=== PATIENT | male | born 1965 | race African-American/Black ===

== ENCOUNTER 2018-08-17 17:05 | Observation (INO) ==
[2018-08-17] MEDS ORDERED: NS 1,000 ML IV ONE ×2 (18:10→18:53)
[2018-08-17 18:19] LABS: BASO# 0.02 X1000 (0.0-0.2); BASO% 0.3 % (0.0-0.8); EOS# 0.03 X1000 (0.0-0.7); EOS% 0.5 % (0.0-10.0); HEMATOCRIT 45.2 % (42.0-52.0); HEMOGLOBIN 16.2 g/dL (14.0-18.0); IMM GRAN# 0.01 X1000 (0.0-0.04); IMM GRAN% 0.2 % (0.0-0.5); LYMPH# 2.05 X1000 (1.2-3.4); LYMPH% 34.2 % (20.5-51.1); MCH 30.3 PG (27-31); MCHC 35.8 g/dL (33-37); MCV 84.6 FL (81-99); MONO# 0.35 X1000 (0.11-0.59); MONO% 5.8 % (1.7-9.3); MPV 10.1 FL (7.4-10.4); NEUT# 3.53 X1000 (1.4-6.5); PLT 349 X1000 (130-400); RBC 5.34 XMIL (4.7-6.1); RDW 12.7 % (11.5-14.5); WBC 5.99 X1000 (4.8-10.8)
[2018-08-17 18:37] LABS: AMYLASE 59 U/L (20-200)
[2018-08-17 18:48] LABS: CALCIUM 9.6 mg/dL (8.8-10.2); CREATININE 1.3 mg/dL (0.7-1.2); TOTAL BILIRUBIN 0.2 mg/dL (0.20-1.00); TOTAL PROTEIN 7.8 g/dL (6.3-8.3)
[2018-08-17 18:51] LABS: ACETONE SERUM NEGATIVE (NEGATIVE)
[2018-08-17] MEDS ORDERED: HUMULIN R IV ONE (18:53)
[2018-08-17] MEDS ORDERED: D50W SYRINGE IV ONE (18:57)
[2018-08-17] MEDS ORDERED: HUMULIN R (PARKWAY) ONE (19:09)
[2018-08-17] MEDS ORDERED: HUMULIN R (PARKWAY) 100 UNITS in NS 100 ML IV SCH (19:15)
[2018-08-17 19:16] LABS: BILIRUBIN URINE NEGATIVE (NEGATIVE); BLOOD URINE NEGATIVE (NEGATIVE); CLARITY CLEAR (CLEAR); COLOR YELLOW; KETONE URINE NEGATIVE (NEGATIVE); LEUKOCYTES URINE NEGATIVE (NEGATIVE); NITRITE URINE NEGATIVE (NEGATIVE); PH URINE 6.5; PROTEIN URINE NEGATIVE (NEGATIVE); UROBILINOGEN URINE NORMAL
[2018-08-17] MEDS ORDERED: ZOFRAN IV ONE (19:16)
[2018-08-17] MEDS: NS 1,000 ML IV ONE ×2 (19:17→20:22)
[2018-08-17] MEDS ORDERED: TYLENOL PO PRN (19:24)
[2018-08-17] MEDS ORDERED: ZOFRAN IV PRN (19:24)
--- NOTE | 2018-08-17 19:24 | PROVIDER DOCUMENTATION ---
This chart was entered by Pati Muñoz Scribe, acting as scribe for Omega Dumont DO. HPI-General Adult - General Chief Complaint: Nausea/Vomiting Stated Complaint: WEAK, EXTREMITY PAIN Time Seen by Provider: 08/17/18 17:46 Source: patient Allergies/Adverse Reactions: Patient Allergies Allergy/AdvReac Type Severity Reaction Status Date / Time No Known Allergies Allergy Verified 07/07/18 18:18 Home Medications: Home Medication List Medication Instructions Recorded Confirmed Last Taken Type Aspirin 81 mg PO DAILY 07/07/18 07/07/18 Unknown History Omeprazole 40 mg PO DAILY 07/07/18 07/07/18 Unknown History Hydroxyurea 500 mg PO DAILY 07/08/18 07/08/18 Unknown History Apixaban [Eliquis] 5 mg PO BID #60 tab 07/09/18 Unknown Rx Insulin Glargine,Hum.rec.anlog 30 units SQ DAILY #1 insuln.pen 07/09/18 Unknown Rx [Lantus Solostar] Insulin Lispro [Humalog Kwikpen] 5 unit SQ TID #1 insuln.pen 07/09/18 Unknown Rx Losartan [Cozaar] 25 mg PO DAILY #30 tab 07/09/18 Unknown Rx Oxycodone/APAP 10 mg/325 mg 1 - 2 mg PO Q4H PRN PRN #20 tab 07/09/18 Unknown Rx [Percocet-10] Tizanidine [Zanaflex] 4 mg PO Q8HR PRN #25 tab 07/09/18 Unknown Rx - History of Present Illness -Gen Adult Nature of Presenting Problems: Pt is 53/M presenting to ED w/ c/o general fatigues aches and pains as well as L shoulder pain. Pt sts that he has been nauseated and jsut not feeling well. Pt is sarcoma patient, is IDDM who has not been checking his glucose levels. Pt sts that h is levels are usually in the 200s. Location of Pain/Injury: reports: generalized Pain Radiation: reports: shoulder(s) (L shoulder pain) Quality of Pain: reports: aching Severity: reports: mild Onset/Duration: reports: 4 days ago Timing: reports: still present Context/Activities at Onset: reports: none Modifying Factors: improves with: nothing Associated Symptoms: reports: malaise, muscle aches, nausea. denies: back/neck pain, chest pain, cough, vomiting Similar Symptoms Previously?: No Recently seen or treated by another doctor?: No Review of Systems - Adult - REVIEW OF SYSTEMS - ADULT Constitutional: reports: no symptoms reported. denies: chills, fever Eyes: reports: no symptoms reported Ears, Nose, Mouth & Throat: reports: no symptoms reported. denies: ear pain, throat pain Cardiovascular: reports: no symptoms reported Respiratory: reports: no symptoms reported. denies: cough, shortness of breath, wheezing Gastrointestinal: reports: nausea. denies: abdominal pain, vomiting Genitourinary: reports: no symptoms reported Musculoskeletal: reports: no symptoms reported Integumentary: reports: no symptoms reported Neurological: reports: no symptoms reported. denies: dizziness/vertigo, h eadache/migraines Psychiatric: reports: no symptoms reported Endocrine: reports: no symptoms reported Hematologic/Lymphatic: reports: no symptoms reported Allergic/Immunologic: reports: no symptoms reported All Other Systems: Reviewed and Negative Past History - Adult - PAST MEDICAL HISTORY-ADULT Review of Records: reports: Old Records Reviewed, Nursing Assessment Review, Medications Reviewed, Social history reviewed & non-contributory. Major Childhood Illnesses: reports: history unknown Cardiovascular: reports: CAD Respiratory: reports: denies history Gastrointestinal: reports: denies history Obstetrical/Gynecological: reports: denies history Genitourinary: reports: denies history Musculoskeletal: reports: denies history Neurological: reports: TIA (apr 2018) Endocrine/Immune: reports: Diabetes Other Conditions: reports: denies history - IMMUNIZATION STATUS Childhood Immunizations: See Nurse Assessment Flu Vaccine: See Nurse Assessment - FAMILY HISTORY Family History: reviewed, not pertinent - SOCIAL HISTORY Smoking: cigarettes, less than 1 pack/day Provider spent 3-5 mins advising pt. on dangers of tobacco.: Discussed manners to quit use, and f/u contacts for add'l counseling. Substance Use: none/never Alcohol Use Frequency: occasionally Physical Exam-General - PHYSICAL EXAM-ADULT Initial Vital Signs Reviewed: Yes - CONSTITUTIONAL General Appearance: mild distress - EYES Eyes: PERRL/EOMI, other (GRD 2 DM RETINOPATHY) - HEAD, EARS, NOSE, MOUTH & THROAT HENMT: moist mucous membranes, dental decay, other (L TM injected) - NECK Neck: non-tender, full range of motion, supple - RESPIRATORY Respiratory: other (decreased breath sounds in L lower lobe) - CARDIOVASCULAR Cardiovascular: regular rate, rhythm, other (pretibal edema) - GASTROINTESTINAL (ABDOMEN) Abdominal Exam: abnormal bowel sounds (hypoactive bowel sounds), tenderness (RLQ tenderness) - LYMPHATIC Lymphatic: no adenopathy - MUSCULOSKELETAL Back Exam: normal inspection, no CVA tenderness, no vertebral tenderness Extremity: normal range of motion, normal gait, other (Diabetic neuropathy) DTR: knee (R): 2+, knee (L): 2+ - SKIN Integumentary: normal color, warm/dry - NEUROLOGIC Neurologic: grossly normal - PSYCHIATRIC Psych/Mental Status: normal mood/affect, normal thought content, normal thought process, oriented x 3 Progress - PLAN OF CARE/RESULTS Progress/Plan/Lab Results: Vital Signs - 8 hr 08/17/18 17:29 Temperature 97.9 F Pulse Rate 92 H Respiratory Rate 20 Blood Pressure 106/78 O2 Sat by Pulse Oximetry 100 Laboratory Results - last 24 hr 08/17/18 08/17/18 08/17/18 17:42 18:05 18:05 WBC 5.99 RBC 5.34 Hgb 16.2 Hct 45.2 MCV 84.6 MCH 30.3 MCHC 35.8 RDW Std Deviation 12.7 Plt Count 349 MPV 10.1 Immature Gran % (Auto) 0.2 Neut % (Auto) 59.0 Lymph % (Auto) 34.2 [place] % (Auto) 5.8 Eos % (Auto) 0.5 Baso % (Auto) 0.3 Immature Gran # (Auto) 0.01 Neut # (Auto) 3.53 Lymph # (Auto) 2.05 [place] # (Auto) 0.35 Eos # (Auto) 0.03 Baso # (Auto) 0.02 Sodium Potassium Chloride Carbon Dioxide Anion Gap BUN Creatinine Estimated GFR/1.73 m2 BUN/Creatinine Ratio Glucose POC Glucose 500 H D Calculated Osmolality Calcium Total Bilirubin AST ALT Alkaline Phosphatase Total Protein Albumin Globulin Albumin/Globulin Ratio Amylase 59 Lipase Acetone Level NEGATIVE 08/17/18 18:05 WBC RBC Hgb Hct MCV MCH MCHC RDW Std Deviation Plt Count MPV Immature Gran % (Auto) Neut % (Auto) Lymph % (Auto) [place] % (Auto) Eos % (Auto) Baso % (Auto) Immature Gran # (Auto) Neut # (Auto) Lymph # (Auto) [place] # (Auto) Eos # (Auto) Baso # (Auto) Sodium 122 L Potassium 5.0 Chloride 83 L Carbon Dioxide 22 L Anion Gap 16 BUN 26 H Creatinine 1.3 H Estimated GFR/1.73 m2 58 BUN/Creatinine Ratio 20 Glucose 926 H* POC Glucose Calculated Osmolality 297 Calcium 9.6 Total Bilirubin 0.20 AST 10 ALT 13 Alkaline Phosphatase 205 H Total Protein 7.8 Albumin 4.0 Globulin 4.0 Albumin/Globulin Ratio 1.0 Amylase Lipase 37 Acetone Level Orders Category Date Time Status FSBS [Finger Stick Blood Sugar (ED)] DIRECTED Care 08/17/18 17:50 Active ACETONE SERUM [CHEM] Stat Lab 08/17/18 18:05 Completed AMYLASE [CHEM] Stat Lab 08/17/18 18:05 Completed CBC WITH DIFF [HEME] Stat Lab 08/17/18 18:05 Completed COMPREHENSIVE METABOLIC PANEL [CHEM] Stat Lab 08/17/18 18:05 Completed LIPASE [CHEM] Stat Lab 08/17/18 18:[address] W/POSS RFLX CULT [URINALYSIS] Stat Lab 08/17/18 17:48 Uncollected 0.9% Sodium Chloride Inj [Ns] 1,000 ml Med 08/17/18 18:10 Active IV 999 mls/hr Result Diagrams: 08/17/18 18:05 08/17/18 18:05 - EKG 1 Time of EKG reading by physician:: 17:45 EKG Read and Signed by:: Omega Dumont EKG Interpretation (*Must complete 3 of following elements*): Abnormal (Normal sinus rhythm, Possible Left atrial enlargement, Early repolarization, Borderline ECG) Rate: 80 Rhythm: Sinus [place]: normal QRS: normal CA Interval: normal - CONSULTS/PCP/HOSPITALIST Notification #1 *Consult/PCP/Hospitalist*: DR MERCEDES Time Discussed: 19:10 (ADMISSION) Departure - Departure Date of Disposition Decision: 08/17/18 Time of Disposition Decision: 19:19 DIAGNOSIS: Hyperglycemia without ketosis, Dehydration, moderate, Secondary diabetes with hyperglycemia hyperosmolar non-ketotic coma Disposition: ADMITTED INPATIENT 09 Certified Medical Emergency: Emergent Condition: Stable Referrals and Follow-Ups: None,PCP [Primary Care Provider] - - Critical Care Note This patient required my direct & personal management of CC.: Yes Total Time (mins): 60 (HYPEROSSMOLAR HYPERGLYCEMIC NONKETTOTIC SYNDROME ) Critical Care Statement: This patient required my direct personal management to treat or rule out processes, the absence of which, could potentiallly result in sudden, clinically significant life or limb threatening deterioration. Attestation - Physician/ ROBERTO Attestation Patient care was provided by Advanced Practice Provider:: No The physician spent face to face time with patient:: Yes Advanced Practice Provider documentation review:: Supervising physician onsite and consulted in the evaluation and care of this patient. The physician did have a face to face encounter with the patient. This chart was documented by the indicated scribe, (Pati Muñoz Scribe) and accurately reflects the services I performed and decisions made by me, Omega Dumont DO, as attested by the provider's signature.
[2018-08-17 19:29] LABS: URINE SOURCE CLEAN CATCH
[2018-08-17 19:30] LABS: URINE BACTERIA NEGATIVE /HFP; URINE CAST NONE SEEN /LPF; URINE CRYSTAL NONE SEEN /HPF; URINE EPITHELIAL CELLS <10 /HPF (<10); URINE RBC <10 /HPF (<10); URINE WBC <10 /HPF (<10); URINE YEAST NONE SEEN /HPF
--- NOTE | 2018-08-17 20:36 | HISTORY AND PHYSICAL ---
CHIEF COMPLAINT: Malaise, I think an elevated blood sugar. HISTORY OF PRESENT ILLNESS: This is a 53-year-old male with history of sarcoma and CAD and diabetes, insulin dependent. He has been taking his regular insulin per him. He takes 20 but then also 25 units of Levemir daily. He is on Humalog 5 mg with meals. These are medicines we started him on, although when I saw him when we discharged him in July, he was on Lantus 30, and he presented at that time with HONK (hyperosmolar nonketotic) diabetes with hyperglycemia, which is essentially his presentation this time. His blood sugars are above 900. He said he has not been feeling well for a week. He has not been eating. He has not been drinking very well liquids. He has not had an appetite. No fevers, no chills. No throwing up. No diarrhea. No dysuria, although he has had polyuria. His sugars have not been very well controlled, but in any case, he was admitted. He was found to be profoundly hyperglycemic as he was last time with a blood sugar of 926. When he was here last time it was as high as 1231 so he was admitted for recurrent HONK, no evidence of DKA. He is awake, alert. PAST MEDICAL HISTORY: 1. 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 He still has sutures in there that have still not been removed. 2. He has CAD. 3. Type 2 diabetes. 4. TIA, CVA. 5. 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 PAST SURGICAL HISTORY: Just the recent sarcoma removal of his left leg. FAMILY HISTORY: Reviewed and noncontributory. SOCIAL HISTORY: Know tobacco. I think he says he does smoke about a pack every 2 days. No alcohol. No drugs. ALLERGIES: No known drug allergies. MEDICATION LIST: Being compiled. Aspirin, hydroxyurea, Cozaar, Eliquis, Humalog and Lantus 30. REVIEW OF SYSTEMS: Again negative times a 10-point review of systems. PHYSICAL EXAMINATION: VITAL SIGNS: Blood pressure is 106/78, heart rate of 92, respiratory rate of 20, temperature 97.9 degrees, 100% on room air. GENERAL: A well-developed male in no acute distress. HEAD EXAM: Normocephalic, atraumatic. EYE EXAM: Pupils equal, round, reactive to light. Extraocular movements are intact. EAR, NOSE AND THROAT EXAM: He had moist mucous membranes. NECK EXAM: Supple. CARDIOVASCULAR EXAM: Tachycardic and hyperdynamic. PULMONARY: Bilateral breath sounds clear to auscultation. GASTROINTESTINAL: Soft, nontender, nondistended. Bowel sounds are positive. NEUROLOGICAL: Nonfocal. No pronator drift. No facial asymmetry. MUSCULOSKELETAL EXAM: 4 to 5 in all 4 extremities. SKIN EXAM: On his left thigh, he has a healed incision. There is kind of a nodular area at the base of the incision with 2 to 3 nonabsorbable sutures. No purulence. No erythema. No jose j tenderness, but it is unclear why the sutures have not been removed, although I am suspicious that it is mostly related to I am not sure if he has been compliant with it, but we will follow. PROBLEM LIST: 1. Hyperosmolar nonketotic (HONK). He has relative hyponatremia and some renal insufficiency. We put him on insulin drip, and we will continue to control his blood sugars. Continue IV fluids and follow closely. 2. Hyponatremia, acute kidney injury likely related to his profound uncontrolled diabetes. 3. History of sarcoma. We will discuss with his surgeon tomorrow at some point to find out if we can remove these sutures. I am going to do some imaging just to make sure there is not a deep infection, although on superficial analysis, I do not appreciate any of that. 4. Thrombocytosis. We will continue his regular medications once there are resolved. DISPOSITION: Pending his clinical status, we will continue to follow closely. 32-minute H and P time for critical care for HONK requiring IV insulin. cc: Ishmael De Guzman MD
[2018-08-17] MEDS ORDERED: SODIUM CHLORIDE 0.9% INJ SCH (20:59)
[2018-08-17] MEDS ORDERED: HUMULIN R (PARKWAY) SUBQ SCH (21:00)
[2018-08-17 21:18] LABS: UR AMPHETAMINES QUAL NONE DETECTED (NONE DETECT); UR BARBITUATES QUAL NONE DETECTED (NONE DETECT); UR BENZODIAZEPIN QUAL NONE DETECTED (NONE DETECT); UR CANNABINOIDS QUAL NONE DETECTED (NONE DETECT); UR COCAINE QUAL PRESUMPTIVE POSITIVE (NONE DETECT); UR METHADONE QUAL NONE DETECTED (NONE DETECT); UR METHAMPHETAMINE QUAL NONE DETECTED (NONE DETECT); UR OPIATES QUAL PRESUMPTIVE POSITIVE (NONE DETECT); UR OXYCODONE QUAL NONE DETECTED (NONE DETECT); UR PCP QUAL NONE DETECTED (NONE DETECT); UR PROPOXYPHENE QUAL NONE DETECTED (NONE DETECT); UR TCA QUAL NONE DETECTED (NONE DETECT)
[2018-08-17] MEDS: MORPHINE IV PRN (22:04)
[2018-08-17] MEDS: PROTONIX IV SCH (22:04)
[2018-08-17] MEDS: NS 1,000 ML IV SCH (22:04)
[2018-08-18] MEDS ORDERED: BASAGLAR SUBQ ONE (00:07)
[2018-08-18] MEDS ORDERED: HUMULIN R (PARKWAY) SUBQ ONE (01:00)
[2018-08-18] MEDS: MORPHINE IV PRN ×2 (02:23→08:44)
[2018-08-18] MEDS ORDERED: HUMULIN R (PARKWAY) SUBQ SCH (05:00)
[2018-08-18] MEDS: NS 1,000 ML IV SCH ×3 (05:55→22:38)
[2018-08-18] MEDS: HUMULIN R (PARKWAY) SUBQ SCH ×2 (05:59→08:54)
[2018-08-18 07:45] LABS: AGAP 9; BUN 14 mg/dL (8-22); CALCIUM 8.1 mg/dL (8.8-10.2); CHLORIDE 102 mmol/L (98-107); COSMO 270; CREATININE 0.8 mg/dL (0.7-1.2); ESTIMATED GFR > 60; GLUCOSE 121 mg/dL (70-104); POTASSIUM 3.6 mmol/L (3.5-5.1); SODIUM 134 mmol/L (136-145); TCO2 23 mmol/L (25-35)
[2018-08-18 07:48] LABS: BASO# 0.02 X1000 (0.0-0.2); BASO% 0.3 % (0.0-0.8); EOS# 0.12 X1000 (0.0-0.7); EOS% 1.6 % (0.0-10.0); HEMATOCRIT 37.6 % (42.0-52.0); HEMOGLOBIN 13.1 g/dL (14.0-18.0); IMM GRAN# 0.02 X1000 (0.0-0.04); IMM GRAN% 0.3 % (0.0-0.5); LYMPH# 4.41 X1000 (1.2-3.4); LYMPH% 57.6 % (20.5-51.1); MCH 29.9 PG (27-31); MCHC 34.8 g/dL (33-37); MCV 85.8 FL (81-99); MONO# 0.41 X1000 (0.11-0.59); MONO% 5.4 % (1.7-9.3); NEUT# 2.67 X1000 (1.4-6.5); NEUT% 34.8 % (42.2-75.2); PLT 303 X1000 (130-400); RBC 4.38 XMIL (4.7-6.1); RDW 12.5 % (11.5-14.5); WBC 7.65 X1000 (4.8-10.8)
[2018-08-18 08:41] LABS: HEMOGLOBIN A1C 5.2 % (4.8-6.0)
[2018-08-18] MEDS ORDERED: LOVENOX SUBQ SCH (09:00)
[2018-08-18] MEDS ORDERED: NS 500 ML IV ONE (10:16)
[2018-08-18] MEDS ORDERED: INSULIN PEN NEEDLES MISC PRN (10:22)
--- NOTE | 2018-08-18 10:49 | PROGRESS NOTE ---
DATE: 08/18/2018 SUBJECTIVE: He has no complaints. He is hungry, he wants to go ahead and eat. No other major issues overnight. He has not had any major issues. OBJECTIVE: Vital Signs: Blood pressure is 191/60, heart rate 62, respiratory 16, temperature 98.3 degrees. Blood pressure has been a little bit on the low side. Cardiovascular: Regular rate and rhythm. Pulmonary: Bilateral breath sounds clear to auscultation. GI: Soft, nontender, nondistended. Bowel sounds are positive. LABORATORY DATA: Really unremarkable. His sugars have stabilized. Generally speaking, they are below 200. His 1 was 163. He is off the insulin drip. UDS though does show positivity for cocaine, I need to talk to him about that. ASSESSMENT: 1. Hyperosmolar nonketotic coma or non-coma, but type 2 diabetes with severe hyperglycemia. That is improved. We will resume his regular medications. Reports that he is on Lantus 30. I think he got Lantus 20 last night, so we will resume Lantus 20 daily and see how he does. I will cover him with NPH this evening just to get him back on his regular schedule. 2. Relative hypotension. We will monitor. Continue hydration and follow. He is a little bit anemic. 3. Thrombocytosis, appears to be stable. We are trying to get his medications resolved. 4. Cocaine positivity. I am not sure if that is a compounding issue with his multiple other issues. We have not seen that previously. 5. History of sarcoma. We are going to remove sutures and monitor. Get Wound Care to follow. DISPOSITION: I think we are going to transfer him to the floor if he is stable, likely home tomorrow. cc: Ishmael De Guzman MD
[2018-08-18] MEDS: HUMALOG (PARKWAY) SUBQ SCH ×3 (13:32→21:44)
[2018-08-18] MEDS: NORCO-7.5 PO PRN ×2 (14:01→20:38)
--- NOTE | 2018-08-18 16:23 | EKG Report ---
Test Performed on : 08/17/2018 5:45:40 PM Test Reason : ER Blood Pressure : / mmHG Vent. Rate : 080 BPM Atrial Rate : 080 BPM P-R Int : 128 ms QRS Dur : 084 ms QT Int : 362 ms P-R-T Axes : 072 021 047 degrees QTc Int : 417 ms Normal sinus rhythm. Possible Left atrial enlargement Early repolarization Borderline ECG When compared with ECG of 08-JUL-2018 19:24, No significant change was found Unconfirmed Result
[2018-08-18] MEDS: ELIQUIS PO SCH (20:38)
[2018-08-18] MEDS: PROTONIX IV SCH (21:43)
[2018-08-19] MEDS ORDERED: MORPHINE IV PRN (06:24)
[2018-08-19] MEDS: NS 1,000 ML IV SCH (06:33)
[2018-08-19] MEDS: HUMALOG (PARKWAY) SUBQ SCH ×3 (06:39→17:20)
[2018-08-19 07:56] LABS: BASO# 0.01 X1000 (0.0-0.2); BASO% 0.1 % (0.0-0.8); EOS# 0.08 X1000 (0.0-0.7); EOS% 1.1 % (0.0-10.0); HEMATOCRIT 37.1 % (42.0-52.0); HEMOGLOBIN 12.7 g/dL (14.0-18.0); IMM GRAN# 0.02 X1000 (0.0-0.04); IMM GRAN% 0.3 % (0.0-0.5); LYMPH# 3.51 X1000 (1.2-3.4); LYMPH% 47.5 % (20.5-51.1); MCH 29.8 PG (27-31); MCHC 34.2 g/dL (33-37); MCV 87.1 FL (81-99); MONO# 0.38 X1000 (0.11-0.59); MONO% 5.1 % (1.7-9.3); NEUT# 3.39 X1000 (1.4-6.5); NEUT% 45.9 % (42.2-75.2); PLT 272 X1000 (130-400); RBC 4.26 XMIL (4.7-6.1); RDW 12.5 % (11.5-14.5); WBC 7.39 X1000 (4.8-10.8)
[2018-08-19 08:27] LABS: BUN 10 mg/dL (8-22); CALCIUM 7.8 mg/dL (8.8-10.2); CREATININE 0.8 mg/dL (0.7-1.2); ESTIMATED GFR > 60; GLUCOSE 260 mg/dL (70-104); TCO2 20 mmol/L (25-35)
[2018-08-19 08:32] LABS: HEMOGLOBIN A1C 14.1 % (4.8-6.0)
[2018-08-19] MEDS: ELIQUIS PO SCH (08:54)
[2018-08-19] MEDS ORDERED: BASAGLAR SUBQ SCH (09:00)
[2018-08-19 09:25] LABS: AGAP 9; CHLORIDE 104 mmol/L (98-107); COSMO 273; POTASSIUM 4.2 mmol/L (3.5-5.1); SODIUM 132 mmol/L (136-145)
[2018-08-19] MEDS ORDERED: PERCOCET-10 PO PRN (14:51)
[2018-08-19] MEDS ORDERED: ZANAFLEX PO PRN (14:51)
[2018-08-19] MEDS ORDERED: BASAGLAR SUBQ ONE (14:52)
[2018-08-19 16:30] VITALS: BP 171/90
[2018-08-19] MEDS ORDERED: HUMALOG (PARKWAY) SUBQ SCH (17:00)
--- NOTE | 2018-08-19 18:17 | Diag Imaging Result Doc PS360 ---
EXAM: CHEST-PORTABLE 08/19/2018 HISTORY: shoulder pain TECHNIQUE: AP portable at 0551 COMMENT: There is no evidence of acute cardiac or pulmonary disease. Compared to 04/28/2011 there has been no significant change. IMPRESSION: No acute disease. Electronically signed by Pranay White 08/19/2018 6:14 PM
[2018-08-19] MEDS ORDERED: ELIQUIS PO SCH (21:00)
--- NOTE | 2018-08-19 21:19 | DISCHARGE SUMMARY ---
ADMISSION DATE: 08/17/2018 DISCHARGE DATE: 08/19/2018 DISCHARGE DIAGNOSES: 1. Hyperglycemic osmolar nonketotic coma. 2. Hyponatremia. 3. History of sarcoma. 4. Thrombocytosis. HISTORY AND HOSPITAL COURSE: Briefly, this is a 53-year-old male with history of multiple issues, sarcoma, CAD, type 2 diabetes, TIA, thrombocytosis, who came in with a blood sugar above 900. He was placed on IV fluids, IV insulin. By the following day, he was off the insulin drip and stable. Now urine drug screen on admission showed cocaine positivity, which he adamantly denies, he says he used it 30 years ago. In any case, all his rest of his workup is negative. His A1c though is 14.1, so I speculate he is not very compliant with his insulin despite statements otherwise. In any case, when he put back on his insulin, he improved. His sugars still have been in the 200 sometimes 300 range. When he was on the full dose, his sugars were in the 300 range. DISCHARGE MEDICATIONS: Aspirin 81 daily, Hydrea 500 daily, omeprazole 40 daily, Zanaflex 4 q.8, Cozaar 25 daily, Eliquis 5 b.i.d., Quick Pen 5 t.i.d., glargine 30 units daily, Percocet 1 to 2 q.4. I would say I am going to bump up his Lantus to 35 daily, just to give him a little bit more room for improvement. DISCHARGE CONDITION: Stable. We will continue to follow. Recommend close followup with his PCP who is Dr. Holman. TIME SPENT: 32 minute discharge. cc: Ishmael De Guzman MD
[2018-08-20] MEDS ORDERED: PRILOSEC PO SCH (07:00)
[2018-08-20] MEDS ORDERED: ASPIRIN PO SCH (09:00)
[2018-08-20] MEDS ORDERED: HYDREA PO SCH (09:00)
[2018-08-20] MEDS ORDERED: COZAAR PO SCH (09:00)
[2018-08-20] MEDS ORDERED: BASAGLAR SUBQ SCH (09:00)
== END 2018-08-19 18:25 | disposition home or self-care (01) ==
LOC: P.ED 17:05 → INTOOBSV 17:06 → P.ICU 17:06 → P.MEDSURG 08-18 13:48
PROVIDERS: ATTEND Internal Medicine
CPT/HCPCS: 71010; 71045; 80048; 80053; 80104; 80301; 80305; 81001; 82009; 82150; 82948; 83036; 83690; 85025; 93005; 96361; 96374; 99285; 99291; A9270; C9113; G0431; G0434; G0477; J1650; J1815; J2270; J2405; J7030; J7040; S0164; XXXXX

== ENCOUNTER 2018-09-19 04:41 | Observation (INO) ==
[2018-09-19] MEDS ORDERED: ZOFRAN IV ONE (06:05)
[2018-09-19] MEDS ORDERED: MORPHINE IV ONE (06:05)
--- NOTE | 2018-09-19 06:13 | PROVIDER DOCUMENTATION ---
HPI-Abdominal Pain/GI Problem - General Chief Complaint: Abdominal Pain Time Seen by Provider: 09/19/18 06:09 Source: patient Allergies/Adverse Reactions: Patient Allergies Allergy/AdvReac Type Severity Reaction Status Date / Time No Known Allergies Allergy Verified 07/07/18 18:18 Home Medications: Home Medication List Medication Instructions Recorded Confirmed Last Taken Type Aspirin 81 mg PO DAILY 07/07/18 09/19/18 09/18/18 09:00 History Omeprazole 40 mg PO DAILY 07/07/18 09/19/18 09/18/18 08:00 History Hydroxyurea 500 mg PO DAILY 07/08/18 09/19/18 09/18/18 08:00 History Apixaban [Eliquis] 5 mg PO BID #60 tab 07/09/18 09/19/18 09/18/18 09:00 Rx Insulin Glargine,Hum.rec.anlog 30 units SQ DAILY #1 insuln.pen 07/09/18 09/19/18 09/18/18 08:00 Rx [Lantus Solostar] Insulin Lispro [Humalog Kwikpen 5 unit SQ TID #1 insuln.pen 07/09/18 09/19/18 09/18/18 08:00 Rx U-100] Losartan [Cozaar] 25 mg PO DAILY #30 tab 07/09/18 09/19/18 09/18/18 08:00 Rx Oxycodone/APAP 10 mg/325 mg 1 - 2 mg PO Q4H PRN PRN #20 tab 07/09/18 09/19/18 09/18/18 08:00 Rx [Percocet-10] Tizanidine [Zanaflex] 4 mg PO Q8HR PRN #25 tab 07/09/18 09/19/18 09/18/18 08:00 Rx Insulin Glargine [Basaglar] 35 unit SUBQ DAILY #1 insuln.pen 08/19/18 09/19/18 09/18/18 08:00 Rx - History of Present Illness-ABD Nature of Presenting Problems: paiten presented with epigastric and upper abdominal pain associated with vomiting couple times, no diarrhea was reported. patient denied chest pain or shortness of breath. Abdominal Pain Onset Location: reports: epigastric, other (upper abdominal pain) Pain Radiation: reports: no radiation, epigastric Quality of Pain: reports: cramping, sharp Severity in ED: reports: moderate Onset/Duration: reports: 2 days ago Timing: reports: still present Activities at Onset: reports: eating Exposure to sick contacts?: No Modifying Factors: improves with: eating Associated Symptoms: reports: nausea, vomiting. denies: anxiety, chest pain, constipation, cough, diarrhea, fatigue, fever/chills Dark Stools Present?: reports: none noticed Rectal Bleeding: reports: none Rectal Pain: reports: none Review of Systems - Adult - REVIEW OF SYSTEMS - ADULT Constitutional: reports: no symptoms reported. denies: fever, fatique Eyes: reports: no symptoms reported Ears, Nose, Mouth & Throat: reports: no symptoms reported Cardiovascular: reports: no symptoms reported Respiratory: reports: no symptoms reported Gastrointestinal: reports: abdominal pain, vomiting Genitourinary: reports: no symptoms reported Musculoskeletal: reports: no symptoms reported Integumentary: reports: no symptoms reported Neurological: reports: no symptoms reported Psychiatric: reports: no symptoms reported Endocrine: reports: no symptoms reported Hematologic/Lymphatic: reports: no symptoms reported Allergic/Immunologic: reports: no symptoms reported Past History - Adult - PAST MEDICAL HISTORY-ADULT Review of Records: reports: Nursing Assessment Review Major Childhood Illnesses: reports: history unknown Cardiovascular: reports: CAD Respiratory: reports: denies history Gastrointestinal: reports: denies history Obstetrical/Gynecological: reports: denies history Genitourinary: reports: denies history Musculoskeletal: reports: denies history Neurological: reports: TIA (apr 2018) Endocrine/Immune: reports: Diabetes Other Conditions: reports: denies history - IMMUNIZATION STATUS Childhood Immunizations: See Nurse Assessment Flu Vaccine: See Nurse Assessment - FAMILY HISTORY Family History: reviewed, not pertinent Physical Exam-General - PHYSICAL EXAM-ADULT Initial Vital Signs Reviewed: Yes - CONSTITUTIONAL General Appearance: alert - EYES Eyes: PERRL/EOMI - HEAD, EARS, NOSE, MOUTH & THROAT HENMT: normocephalic/atraumatic, normal ENT inspection - NECK Neck: supple - RESPIRATORY Respiratory: lungs clear, normal breath sounds, no pleuratic chest pain, no respiratory distress, no accessory muscle use - CARDIOVASCULAR Cardiovascular: normal peripheral pulses, regular rate, rhythm, no edema, no JVD - GASTROINTESTINAL (ABDOMEN) Abdominal Exam: soft, no pulsatile mass, tenderness, other (epigastric tenderness) - LYMPHATIC Lymphatic: no adenopathy - MUSCULOSKELETAL Back Exam: normal inspection, no CVA tenderness, no vertebral tenderness. 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, grossly normal, no motor/sensory deficits - PSYCHIATRIC Psych/Mental Status: normal mood/affect Progress - PLAN OF CARE/RESULTS Progress/Plan/Lab Results: Laboratory Results - last 24 hr 09/19/18 05:34 Urine Source CLEAN CATCH Orders Category Date Time Status CT ABDOMEN/PELVIS W/O CONTRAST [CT] Stat Exams 09/19/18 06:04 Ordered AMYLASE [CHEM] Stat Lab 09/19/18 05:34 Received CBC WITH DIFF [HEME] Stat Lab 09/19/18 05:34 Results COMPREHENSIVE METABOLIC PANEL [CHEM] Stat Lab 09/19/18 05:34 Received LIPASE [CHEM] Stat Lab 09/19/18 05:34 Received URINALYSIS [URINALYSIS] Stat Lab 09/19/18 05:34 Results URINE DRUG SCREEN Stat Lab 09/19/18 06:05 Uncollected Morphine Med 09/19/18 06:05 Discontinued 4 mg IV NOW ONE Ondansetron [Zofran] Med 09/19/18 06:05 Discontinued 4 mg IV NOW ONE Result Diagrams: 09/19/18 05:34 09/19/18 09:58 - REASSESSMENT Reassessment #1 Status: unchanged (continued abd pain, nausea. Discussed with HM with plan for admission.) - CHANGE OF SHIFT REPORT (ED Provider) 1 Report Given and Care Transferred to:: Dr King Time of Transfer: 07:00 Items Pending: Labs, CT/MRI Results Departure - Departure Date of Disposition Decision: 09/19/18 Time of Disposition Decision: 08:20 DIAGNOSIS: Abdominal pain in male Diabetic ketoacidosis Qualifiers: Diabetes mellitus type: type 2 Diabetes mellitus complication detail: without coma Qualified Code(s): E11.10 - Type 2 diabetes mellitus with ketoacidosis without coma Disposition: ADMITTED INPATIENT 09 Certified Medical Emergency: Emergent Condition: Serious - Critical Care Note This patient required my direct & personal management of CC.: Yes Total Time (mins): 31 Critical Care Statement: This patient required my direct personal management to treat or rule out processes, the absence of which, could potentiallly result in sudden, clinically significant life or limb threatening deterioration. Attestation - Physician/ ROBERTO Attestation The physician spent face to face time with patient:: Yes Advanced Practice Provider documentation review:: Supervising physician onsite and consulted in the evaluation and care of this patient. The physician did have a face to face encounter with the patient.
[2018-09-19 06:24] LABS: BASO# 0.02 X1000 (0.0-0.2); BASO% 0.2 % (0.0-0.8); EOS# 0.07 X1000 (0.0-0.7); EOS% 0.7 % (0.0-10.0); HEMATOCRIT 48.2 % (42.0-52.0); IMM GRAN# 0.02 X1000 (0.0-0.04); IMM GRAN% 0.2 % (0.0-0.5); LYMPH# 3.11 X1000 (1.2-3.4); LYMPH% 31.8 % (20.5-51.1); MCH 29.6 PG (27-31); MCHC 35.3 g/dL (33-37); MONO% 6.1 % (1.7-9.3); MPV 10.1 FL (7.4-10.4); NEUT# 5.95 X1000 (1.4-6.5); PLT 276 X1000 (130-400); RBC 5.74 XMIL (4.7-6.1); WBC 9.77 X1000 (4.8-10.8)
[2018-09-19 07:03] LABS: AGAP 17; ALB/GLOB RATIO 1.2; ALBUMIN 4.2 g/dL (3.5-5.0); ALKALINE PHOSPHATASE 181 U/L (32-122); AMYLASE 53 U/L (20-200); BUN 13 mg/dL (8-22); CALCIUM 10.3 mg/dL (8.8-10.2); CHLORIDE 89 mmol/L (98-107); COSMO 284; CREATININE 1.2 mg/dL (0.7-1.2); ESTIMATED GFR > 60; GOT 11 U/L (10-34); GPT 10 U/L (10-44); LIPASE 30 U/L (13-60); POTASSIUM 4.6 mmol/L (3.5-5.1); SODIUM 128 mmol/L (136-145); TCO2 22 mmol/L (25-35); TOTAL BILIRUBIN 0.43 mg/dL (0.20-1.00); TOTAL PROTEIN 7.8 g/dL (6.3-8.3)
[2018-09-19 07:11] LABS: GLUCOSE 582 mg/dL (70-104)
[2018-09-19] MEDS ORDERED: NS 1,000 ML IV ONE ×2 (07:14)
[2018-09-19] MEDS ORDERED: HUMULIN R IV ONE (07:15)
--- NOTE | 2018-09-19 07:17 | Diag Imaging Result Doc PS360 ---
EXAM: CT ABDOMEN/PELVIS W/O CONTRAST 09/19/2018 HISTORY: abd pain TECHNIQUE: This exam was performed using automated exposure control, adjustment of mA or kV according to patient size, and/or use of iterative reconstruction technique. COMMENT: There are no previous studies available for comparison. There is some emphysematous change in the visualized portion of the lungs. The aorta is not distended. There are some calcifications in the aorta. There is no evidence of nephrolithiasis. There is what appears to be a cyst in the lower pole of the left kidney. There are no gallstones demonstrated. The spleen and liver adrenal glands and pancreas are grossly normal in the absence of IV contrast. The stomach is not distended. There is no evidence of bowel obstruction. There is some perinephric stranding bilaterally which may be chronic. The possibility of urinary tract infection cannot be excluded on the basis of this noncontrast study. The appendix is not distended. The urinary bladder is not distended and there is no evidence of free fluid. There are postsurgical changes in the lumbar spine. No evidence of acute bony abnormality is present. IMPRESSION: Nonspecific abdomen. Electronically signed by Pranay White 09/19/2018 7:15 AM
[2018-09-19] MEDS ORDERED: NS 1,000 ML ONE (07:18)
[2018-09-19] MEDS ORDERED: TORADOL IV ONE (08:07)
[2018-09-19 08:37] LABS: BLOOD TYPE VENOUS; SAMPLE BLOOD
[2018-09-19 08:49] LABS: BE -2.8 mmoll (-2.0-2.0); HCO3-(ACT) 21.8 mmoll (22-27); PCO2(98.6) 46 mmHg (40-60); PO2(98.6) 40 mmHg (30-55); pH(98.6) 7.32 (7.32-7.43)
[2018-09-19 08:50] LABS: SAO2 73.5 % (40.0-85.0)
[2018-09-19] MEDS ORDERED: ZOFRAN IV PRN (09:30)
[2018-09-19 10:41] LABS: AGAP 14; BUN 13 mg/dL (8-22); CALCIUM 9.4 mg/dL (8.8-10.2); CHLORIDE 99 mmol/L (98-107); COSMO 279; CREATININE 1.1 mg/dL (0.7-1.2); ESTIMATED GFR > 60; GLUCOSE 282 mg/dL (70-104); MAGNESIUM 1.7 mg/dL (1.5-2.7); PHOSPHORUS 3.6 mg/dL (2.7-4.5); POTASSIUM 4.4 mmol/L (3.5-5.1); SODIUM 134 mmol/L (136-145); TCO2 21 mmol/L (25-35)
--- NOTE | 2018-09-19 10:49 | HISTORY AND PHYSICAL ---
ONCOLOGIST: Dr. Mario Holman CHIEF COMPLAINT: Abdominal pain and hyperglycemia. HISTORY OF PRESENT ILLNESS: Mr. 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 He does not recall a specific inciting factor, just that he has had increasing abdominal pain, generalized, over the past 3 days, and this has been associated with nausea and vomiting but no diarrhea. He denies any fever. No chest pain. No lower extremity edema. No orthopnea. He reports that he has been compliant with his diabetic medications and that his blood sugar yesterday was 250. Today, in the ER, his workup revealed a blood sugar of 582 and evidence of volume depletion with hemoconcentration, elevated calcium and a venous lactate of 3.1. He was given 10 units of IV insulin with 2 L of normal saline, and his blood sugar has since come down to 290. We are awaiting repeat chemistries. We will admit him to the floor for further treatment and evaluation. PAST MEDICAL HISTORY: 1. Recent admissions at [facility] for HHNKS and DKA. 2. Poorly controlled diabetes mellitus requiring insulin. Hemoglobin A1c is 14. 3. Hypertension. 4. Chronic back pain. 5. Nicotine dependence. 6. Questionable cocaine dependence. The patient was positive for cocaine last month; however, per documentation, he denied any use of illicit substances. 7. History of sarcoma, status post excision in the area of the left hip. 8. He has apparently also had blood clots in his legs and lungs and has stents in the periphery. PAST SURGICAL HISTORY: 1. He has had the sarcoma excision. 2. Peripheral stents due to blood clots, per patient report. SOCIAL HISTORY: He smokes 1/2 pack to 1 pack of cigarettes per day. He denies alcohol or drug use, but again, he has had a positive drug screen within the last 2 months for cocaine. FAMILY HISTORY: Noncontributory. HOME MEDICATIONS: Have not been verified today; however, discharge medications from last month were Lantus 35 units subcutaneously daily, aspirin 81 mg daily, omeprazole 40 mg daily, hydroxyurea 500 mg daily, Humalog Quick Pen 5 units subcutaneously 3 times a day, losartan 25 mg daily, Eliquis 5 mg twice a day, Percocet 10 one to 2 every 4 hours as needed for pain, Zanaflex 4 mg every 8 hours as needed for muscle cramping, Lantus 30 units subcutaneously daily. ALLERGIES: No known drug allergies. PHYSICAL EXAMINATION: VITAL SIGNS: Blood pressure is 124/86, heart rate is 100, respiratory rate 18, O2 saturation is 99% on room air, temperature is 97.4. GENERAL: This is a well-developed, well-nourished male lying in hospital bed in no acute distress. NEUROLOGICAL: No focal deficits noted. He is awake, alert, oriented. HEENT: Head is atraumatic and normocephalic. Pupils are equal, round and reactive to light. Oral mucosa is a bit tacky. NECK: Trachea is midline. There is no JVD. CHEST: Clear to auscultation bilaterally. CARDIOVASCULAR: Slightly tachycardic. S1 and S2 noted. There are no appreciable murmurs. GASTROINTESTINAL: Diffusely tender to palpation, but there is no rigidity. Bowel sounds are hypoactive. EXTREMITIES: Without edema, clubbing or cyanosis. Left thigh sarcoma site clean, dry and intact. DIAGNOSTIC DATA: Abdomen and pelvis CT shows perinephric stranding bilaterally which may be chronic. Postsurgical changes of the lumbar spine. No evidence of acute process. WBC is 9.77, hemoglobin 17, hematocrit 48.2, platelet count 276. Venous gas showed pH of 7.32, CO2 of 46, O2 of 40, bicarbonate 21.8, lactate 3.1. Chemistry showed sodium corrected for hyperglycemia is 136, potassium 4.6, chloride 89, CO2 is 22, anion gap 17, BUN is 13, creatinine 1.2, glucose 582, calcium 10.3. AST is 11, ALT is 10, alkaline phosphatase 181, BUN is 4.2, lipase is 30. UA is pending. ASSESSMENT AND PLAN: 1. Hyperglycemia with features of early diabetic ketoacidosis. The patient is slightly acidotic with a minimal elevation in anion gap; however, he was given multiple liters of normal saline and IV insulin almost 4 hours ago, so it is likely that his labs have improved and they are pending; however, his blood sugar is down to 290, but he will likely be able to switch to a high dose sliding scale. We will monitor this closely. 2. Abdominal pain. CT of abdomen and pelvis does show question of chronic perinephric stranding. He denies any dysuria. We are awaiting a urinalysis. Otherwise, likely secondary to hyperglycemia and volume depletion. 3. Volume depletion. Continue aggressive IV fluids. 4. Poorly controlled type 2 diabetes. We will add high dose sliding scale now and increase his insulin as he is able to tolerate diet. 5. Hypertension. Continue home medications once reconciled. 6. 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 Per the patient, he has stents in the arms and legs due to blood clots. He is on Eliquis at home which we will continue. 7. Nicotine and questionable cocaine dependence. We have prescribed a nicotine patch and will continue cessation education and will also discuss with him the perils of illicit drug use. 8. DVT prophylaxis with home Eliquis. Further recommendations to follow. Dictated by DEZ Payne for Valente Medellin MD cc: DEZ Payne MD
[2018-09-19] MEDS: NS 1,000 ML IV SCH ×2 (11:28→17:47)
[2018-09-19] MEDS: HUMALOG SUBQ SCH ×4 (16:03→21:15)
[2018-09-19] MEDS: TYLENOL PO PRN (18:39)
[2018-09-19] MEDS: HYDREA PO SCH (18:40)
[2018-09-19] MEDS: COZAAR PO SCH (18:40)
[2018-09-19] MEDS: LANTUS INSULIN SUBQ SCH (18:40)
[2018-09-19] MEDS: PHENERGAN IV PRN (19:04)
[2018-09-19 19:19] LABS: URINE SOURCE CLEAN CATCH
[2018-09-19 19:22] LABS: BILIRUBIN URINE NEGATIVE (NEGATIVE); BLOOD URINE NEGATIVE (NEGATIVE); COLOR YELLOW; GLUCOSE URINE >1000 mg/dL (NEGATIVE); KETONE URINE 20 mg/dL (NEGATIVE); LEUKOCYTES URINE NEGATIVE (NEGATIVE); NITRITE URINE NEGATIVE (NEGATIVE); PH URINE 5.5; PROTEIN URINE 50 mg/dL (NEGATIVE); SP GRAVITY URINE 1.044; TURBIDITY URINE CLEAR (CLEAR); UROBILINOGEN URINE NORMAL (NORMAL)
[2018-09-19 19:23] LABS: UR EPITHELIAL CELLS <10 /HPF (<10); URINE BACTERIA NEGATIVE /HPF; URINE RBC <10 /HPF (<10); URINE WBC <10 /HPF (<10)
--- NOTE | 2018-09-19 20:03 | HISTORY AND PHYSICAL ---
ADDENDUM - HISTORY AND PHYSICAL: Mr. Davis got admitted this morning mainly because of abdominal discomfort with nausea and vomiting. He was found to have a glucose level of 585 on admission. He was subsequently admitted for medical care. I have reviewed. I have seen him today. His father was at the bedside at the time of the encounter. I have also examined him, reviewed his labs and imaging studies. I agree with the history and physical dictated in the chart by the nurse practitioner. Mr. Davis will be treated for : 1- severe uncontrolled diabetes mellitus 2- extreme dehydration and 3-mild initial DKA. His repeat chemistries this afternoon are looking better. The gap is closed. His glucose is 285. He is feeling a lot better. We are going to continue with the IV fluids. We are also going to restart him back on his home insulin regimen and continue with the sliding scale. We will start him on a diabetic diet and I will re-evaluate him tomorrow morning. I have explained the plan to him and his dad who was at the bedside at the time of the encounter. Both of them are in agreement. Please refer to the details of H and P in the chart. cc: Valente Medellin MD MTDD
[2018-09-19 20:50] LABS: UR AMPHETAMINES QUAL NONE DETECTED (NONE DETECT); UR BARBITUATES QUAL NONE DETECTED (NONE DETECT); UR BENZODIAZEPIN QUAL NONE DETECTED (NONE DETECT); UR CANNABINOIDS QUAL NONE DETECTED (NONE DETECT); UR COCAINE QUAL PRESUMPTIVE POSITIVE (NONE DETECT); UR METHADONE QUAL NONE DETECTED (NONE DETECT); UR OPIATES QUAL PRESUMPTIVE POSITIVE (NONE DETECT); UR OXYCODONE QUAL NONE DETECTED (NONE DETECT); UR PCP QUAL NONE DETECTED (NONE DETECT)
[2018-09-19] MEDS: ELIQUIS PO SCH (21:15)
[2018-09-20] MEDS ORDERED: SODIUM CHLORIDE 0.9% 10 ML ONE (00:37)
[2018-09-20] MEDS: PHENERGAN IV PRN (00:39)
[2018-09-20] MEDS: NS 1,000 ML IV SCH ×3 (00:39→09:03)
[2018-09-20] MEDS: TYLENOL PO PRN (02:48)
[2018-09-20] MEDS: HUMALOG SUBQ SCH ×2 (05:00→09:52)
[2018-09-20 06:25] LABS: HEMATOCRIT 41.4 % (42.0-52.0); HEMOGLOBIN 13.7 g/dL (14.0-18.0); MCH 30.2 PG (27-31); MCHC 33.1 g/dL (33-37); MCV 91.2 FL (81-99); MPV 9.7 FL (7.4-10.4); RBC 4.54 XMIL (4.7-6.1); RDW 13.3 % (11.5-14.5); WBC 9.19 X1000 (4.8-10.8)
[2018-09-20 06:50] LABS: AGAP 11; BUN 9 mg/dL (8-22); CALCIUM 8.3 mg/dL (8.8-10.2); CHLORIDE 105 mmol/L (98-107); COSMO 270; CREATININE 0.8 mg/dL (0.7-1.2); ESTIMATED GFR > 60; GLUCOSE 145 mg/dL (70-104); MAGNESIUM 1.5 mg/dL (1.5-2.7); SODIUM 134 mmol/L (136-145); TCO2 18 mmol/L (25-35)
[2018-09-20 07:48] VITALS: BP 133/87
[2018-09-20] MEDS ORDERED: ASPIRIN PO SCH (09:00)
[2018-09-20] MEDS: LANTUS INSULIN SUBQ SCH (09:02)
[2018-09-20] MEDS: HYDREA PO SCH (09:02)
[2018-09-20] MEDS: COZAAR PO SCH (09:02)
[2018-09-20] MEDS: ELIQUIS PO SCH (09:02)
--- NOTE | 2018-09-20 21:52 | DISCHARGE SUMMARY ---
ADMISSION DATE: 09/19/2018 DISCHARGE DATE: 09/20/2018 DISPOSITION: Home. FOLLOWUP: Will be with patient's PCP, Dr. Holman, in [place]. ADMISSION DIAGNOSES: 1. Severe uncontrolled diabetes mellitus. 2. Clinical volume depletion. 3. Mild diabetic ketoacidosis. DIAGNOSES AT THE TIME OF DISCHARGE: 1. Mild diabetic ketoacidosis, resolved. 2. Clinical volume depletion. 3. Acute kidney injury secondary to dehydration. 4. Severe uncontrolled diabetes mellitus on presentation with a glucose level of 585, improved. 5. History of gout. 6. History of deep venous thrombosis in the lower extremities. The patient is on chronic anticoagulation. PRESENTING COMPLAINT: Abdominal pain and hypoglycemia. HISTORY OF PRESENTING COMPLAINT: Mr. Davis is a 53-year-old gentleman with a history of diabetes mellitus, poorly controlled, history of sarcoma and nicotine dependence. The patient presented to the emergency department because of increased abdominal pain and some nauseation and vomiting but no diarrhea. Upon presentation, he was evaluated and was found to have a glucose level of 585 with initial lab findings of mild diabetic ketoacidosis. He was subsequently admitted for further medical care. HOSPITAL COURSE: Mr. Davis did have a CT scan of the abdomen, which was completely nonspecific. He was admitted to the medical floor. He was adequately fluid resuscitated, and glucose was managed with insulin regimen. Over the course of the hospital stay, he did feel better. He felt stronger. He was able to move around. His glucose got better to 145 this morning. Clinically, his hydration status has significantly improved. He feels like he can be discharged, and he will follow up with his primary care doctor, and he has been counseled on medication compliance. This morning vital signs are blood pressure is 123/87, pulse is 77 respirations 16, and temperature is 97.9 degrees. He is completely asymptomatic, no more abdominal pain. No more nauseating. He has been tolerating his meals and he has had a regular bowel movement. Mr. Davis is therefore going to be discharged in stable condition. He will follow up with his primary care doctor. All the discharge instructions have been discussed with him and he voiced understanding. DISCHARGE MEDICATIONS: Will include: 1. Aspirin 81 mg daily. 2. Omeprazole 40 mg daily. 3. Hydroxyurea 500 mg daily. 4. Insulin lispro 5 units 3 times per day with meals. 5. Losartan 25 mg p.o. daily. 6. Eliquis 5 mg b.i.d. 7. Percocet. 8. Insulin glargine 35 units subcutaneous daily. TIME SPENT FOR DISCHARGE: 36 minutes. cc: Valente Medellin MD MTDD
== END 2018-09-20 11:48 | disposition home or self-care (01) ==
LOC: ED 05:38 → 4N 11:02 → INTOOBSV 11:02
PROVIDERS: ATTEND Internal Medicine
CPT/HCPCS: 74176; 80048; 80053; 80101; 80301; 80307; 80324; 80345; 80346; 80353; 80358; 80361; 80365; 81001; 82009; 82150; 82805; 82948; 83690; 83735; 83992; 84100; 85025; 85027; 96361; 96374; 96375; 99285; A9270; G0431; G0434; G0479; G0480; J1815; J1885; J2270; J2405; J2550; J7030; S0176; XXXXX

== ENCOUNTER 2018-11-09 06:40 | Inpatient (IN) ==
--- NOTE | 2018-11-09 07:26 | PROVIDER DOCUMENTATION ---
HPI-Abdominal Pain/GI Problem - General Chief Complaint: Return/Recheck Stated Complaint: ABD Pain Time Seen by Provider: 11/09/18 07:05 Source: patient, old records Allergies/Adverse Reactions: Patient Allergies Allergy/AdvReac Type Severity Reaction Status Date / Time No Known Allergies Allergy Verified 07/07/18 18:18 Home Medications: Home Medication List Medication Instructions Recorded Confirmed Last Taken Type Aspirin 81 mg PO DAILY 07/07/18 09/19/18 09/18/18 09:00 History Omeprazole 40 mg PO DAILY 07/07/18 09/19/18 09/18/18 08:00 History Hydroxyurea 500 mg PO DAILY 07/08/18 09/19/18 09/18/18 08:00 History Apixaban [Eliquis] 5 mg PO BID #60 tab 07/09/18 09/19/18 09/18/18 09:00 Rx Insulin Lispro [Humalog Kwikpen 5 unit SQ TID #1 insuln.pen 07/09/18 09/19/18 09/18/18 08:00 Rx U-100] Losartan [Cozaar] 25 mg PO DAILY #30 tab 07/09/18 09/19/18 09/18/18 08:00 Rx Oxycodone/APAP 10 mg/325 mg 1 - 2 mg PO Q4H PRN PRN #20 tab 07/09/18 09/19/18 09/18/18 08:00 Rx [Percocet-10] Tizanidine [Zanaflex] 4 mg PO Q8HR PRN #25 tab 07/09/18 09/19/18 09/18/18 08:00 Rx Insulin Glargine [Basaglar] 35 unit SUBQ DAILY #1 insuln.pen 08/19/18 09/19/18 09/18/18 08:00 Rx Acetaminophen/Diphenhydramine 1 ea PO Q6HR PRN #14 tab 11/09/18 Unknown Rx [Percogesic 325-12.5 mg Tablet] Polyethylene Glycol 3350 [Miralax] 17 gm PO DAILY #30 powd.pack 11/09/18 Unknown Rx - History of Present Illness-ABD Nature of Presenting Problems: pt presents by EMS having been discharged from the [facility] ED < 2 hr ago following eval for same problem. He cc: abd pain, no clear fever, emesis, diarrhea. He had a normal (prelim/[place] read) non-contrast CT A&P, with a similar presentation and imaging result last September. PDMP review shows opiate dependence ([place]-10 qid) Rx by Dr. Holman (Hem-Onc) in [place]. Pt reports hx of thrombocytosis (on Eliquis) w/ prior clot in arm, and prior ? CVA. He does not however give me a clear explanation for the opiate maintenance (reportedly he has had remote lumbar spine surgery). His UDS this a.m. was further + for cocaine. He has had no prior abd surgery. Review of Systems - Adult - REVIEW OF SYSTEMS - ADULT Constitutional: reports: no symptoms reported Eyes: reports: no symptoms reported Ears, Nose, Mouth & Throat: reports: no symptoms reported Cardiovascular: reports: no symptoms reported Respiratory: reports: no symptoms reported Gastrointestinal: reports: see HPI, abdominal pain Genitourinary: reports: no symptoms reported Musculoskeletal: reports: no symptoms reported Integumentary: reports: no symptoms reported Neurological: reports: no symptoms reported Psychiatric: reports: no symptoms reported Endocrine: reports: no symptoms reported Hematologic/Lymphatic: reports: no symptoms reported Allergic/Immunologic: reports: no symptoms reported All Other Systems: Reviewed and Negative Past History - Adult - PAST MEDICAL HISTORY-ADULT Review of Records: reports: Old Records Reviewed Major Childhood Illnesses: reports: history unknown Cardiovascular: reports: CAD Respiratory: reports: denies history Gastrointestinal: reports: denies history Obstetrical/Gynecological: reports: denies history Genitourinary: reports: denies history Musculoskeletal: reports: denies history Neurological: reports: TIA (apr 2018) Endocrine/Immune: reports: Diabetes Other Conditions: reports: denies history - IMMUNIZATION STATUS Childhood Immunizations: See Nurse Assessment Flu Vaccine: See Nurse Assessment - FAMILY HISTORY Family History: reviewed, not pertinent Physical Exam-General - PHYSICAL EXAM-ADULT Initial Vital Signs Reviewed: Yes - CONSTITUTIONAL General Appearance: alert, moderate distress - EYES Eyes: PERRL/EOMI, pink conjunctivae. negative: sclera injected, scleral icterus - HEAD, EARS, NOSE, MOUTH & THROAT HENMT: normocephalic/atraumatic, moist mucous membranes - NECK Neck: full range of motion - RESPIRATORY Respiratory: lungs clear, other (hyperventilating) - CARDIOVASCULAR Cardiovascular: normal peripheral pulses, regular rate, rhythm - GASTROINTESTINAL (ABDOMEN) Abdominal Exam: negative: rigid, rebound, mass - LYMPHATIC Lymphatic: no adenopathy - SKIN Integumentary: normal turgor, warm/dry - NEUROLOGIC Neurologic: civil structural designer II-XII nml as tested, grossly normal. negative: abnormal gait (pt wandering around ED at times) - PSYCHIATRIC Psych/Mental Status: normal mood/affect, normal thought content Progress - PLAN OF CARE/RESULTS Progress/Plan/Lab Results: Vital Signs - 8 hr 11/09/18 06:48 11/09/18 06:53 Temperature 98.2 F Pulse Rate 97 H Respiratory Rate 20 Blood Pressure 139/78 O2 Sat by Pulse Oximetry 100 Orders Category Date Time Status CBC WITH DIFF [HEME] Stat Lab 11/09/18 07:18 Uncollected TROPONIN T Stat Lab 11/09/18 07:18 Uncollected Departure - Departure Referrals and Follow-Ups: None,PCP [Primary Care Provider] -
[2018-11-09 07:50] LABS: BASO# 0.01 X1000 (0.0-0.2); BASO% 0.1 % (0.0-0.8); EOS# 0.04 X1000 (0.0-0.7); EOS% 0.3 % (0.0-10.0); HEMATOCRIT 50.6 % (42.0-52.0); HEMOGLOBIN 17.7 g/dL (14.0-18.0); IMM GRAN# 0.05 X1000 (0.0-0.04); IMM GRAN% 0.3 % (0.0-0.5); LYMPH# 1.03 X1000 (1.2-3.4); LYMPH% 7.1 % (20.5-51.1); MCH 29.3 PG (27-31); MCV 83.8 FL (81-99); MONO# 0.47 X1000 (0.11-0.59); MONO% 3.3 % (1.7-9.3); MPV 9.4 FL (7.4-10.4); NEUT# 12.81 X1000 (1.4-6.5); NEUT% 88.9 % (42.2-75.2); PLT 326 X1000 (130-400); RBC 6.04 XMIL (4.7-6.1); RDW 13.3 % (11.5-14.5); WBC 14.41 X1000 (4.8-10.8)
[2018-11-09] MEDS ORDERED: ATIVAN IM ONE (07:51)
[2018-11-09] MEDS ORDERED: GEODON IM ONE ×2 (07:51→20:56)
[2018-11-09] MEDS ORDERED: STERILE WATER INJ. INJ ONE ×2 (07:51→20:56)
[2018-11-09 08:13] LABS: BANDS 2 % (0-1); LYMPHS 8 % (21-51); MONO 3 % (1-9); SEGS 87 % (42-75)
[2018-11-09 08:14] LABS: ANISOCYTOSIS 1+; MICROCYTOSIS 1+
--- NOTE | 2018-11-09 10:07 | ED EKG INTERP ---
This chart was entered by Andie Heath Scribe, acting as scribe for Stefano Judd MD. EKG Interpretation - EKG Time of EKG reading by physician:: 07:39 EKG Read and Signed by:: Stefano Judd EKG Interpretation (*Must complete 3 of following elements*): Abnormal Rate: 98 Rhythm: NSR [place]: normal QRS: LVH, other (biatrial enlargement) VT Interval: prolonged ST Wave: normal Comments: Poor data quality, interpretation may be adversely affected. Attestation - Physician/ ROBERTO Attestation Patient care was provided by Advanced Practice Provider:: No The physician spent face to face time with patient:: Yes Advanced Practice Provider documentation review:: Supervising physician onsite and consulted in the evaluation and care of this patient. The physician did have a face to face encounter with the patient. This chart was documented by the indicated scribe, (Andie Heath Scribe) and accurately reflects the services I performed and decisions made by me, Stefano Judd MD, as attested by the provider's signature.
[2018-11-09] MEDS ORDERED: NS 1,000 ML IV ONE (13:15)
[2018-11-09] MEDS ORDERED: NEXIUM IV ONE (14:43)
[2018-11-09] MEDS ORDERED: SODIUM CHLORIDE 0.9% INJ ONE (14:43)
[2018-11-09] MEDS ORDERED: NEXIUM 80 MG in NS 90 ML IV SCH (14:45)
[2018-11-09] MEDS ORDERED: MORPHINE IV ONE (14:58)
[2018-11-09] MEDS ORDERED: ZOFRAN IV PRN (15:06)
--- NOTE | 2018-11-09 15:28 | HISTORY AND PHYSICAL ---
HISTORY OF PRESENT ILLNESS: By report, he came in with abdominal pain. Apparently going to the emergency room at [facility] and was discharged. Had more abdominal pain. Called the ambulance. Came to [facility] ER. He is in restraints right now. They gave him some Geodon and very agitated. His urine drug screen is positive for cocaine. He has a history of cocaine use. NG tube suctioned some bloody contents so suspect upper GI bleed. He has a history of gastroparesis. PAST MEDICAL HISTORY: By report: 1. Recent admission at the [facility] for hyperosmolar, hyperglycemic, non-ketoacidosis and DKA together. 2. Poorly controlled diabetes in the past. Hemoglobin A1c last checked was 14. 3. Hypertension. 4. Chronic back pain. 5. Nicotine dependence. 6. Cocaine use. 7. History of sarcoma, excision around the left hip. He is followed by Dr. Mario Holman in [place], I believe. 8. He has had blood clots or DVTs in his lower extremities. 9. Apparently, he has had stents placed. I do not know if this represents peripheral artery disease. PAST SURGICAL HISTORY: 1. Sarcoma excision. 2. Peripheral stents due to blood clots, by patient's report. I am guessing those are arterial stents. SOCIAL HISTORY: Was smoking a half pack to a pack a day. He denies alcohol. He, in the past, has denied drug use but he had a positive drug screen the last several times he has been here, for cocaine. FAMILY HISTORY: Noncontributory by old report. REVIEW OF SYSTEMS: General: No weight gain or loss reported but cannot really elicit much in review of systems other than what he reported, abdominal pain. Unable to give a review of systems. PHYSICAL EXAMINATION: VITAL SIGNS: Temperature 98.2 degrees, pulse 97, respirations 20, blood pressure 139/78. HEENT: Pupils are equal and round. LUNGS: Clear in all lung helm. CARDIOVASCULAR: Regular rhythm and rate without murmur or S3. ABDOMEN: Soft. Abdomen, it is hard to tell. He is in 4 point restraint and a lot of agitation but does not appear distended. SKIN: I did not see any skin rashes. Appears to be warm and dry. Weight 190 pounds. Height 5 feet 8 inches. Urine output so far has been 600 mL. LABORATORY DATA: White count 14,410, hematocrit 50, platelet count 326,000. Troponin was less than 0.01. MEDICATIONS: At home, he is on Percogesic 325/12.5 q.6 hours p.r.n. (14 tablets), Eliquis 5 mg b.i.d. (I think that is for DVTs), aspirin 81 mg a day, hydroxyurea 500 mg a day, insulin glargine 35 units subcutaneous daily, insulin lispro 5 units t.i.d., Cozaar 25 mg a day, omeprazole 40 mg a day, oxycodone 10 mg/325 which he takes 1 to 2 tablets q.4 hours (he apparently had 20 tablets), MiraLAX 17 g daily, Zanaflex 4 mg at bedtime. Waiting on the rest of his labs. ASSESSMENT AND PLAN: 1. Abdominal pain. History of gastroparesis. He could have gastritis. As far as the bloody suction from nasogastric tube, he is on Eliquis and this could be bleeding just from the trauma of a nasogastric tube. We will hold the Eliquis. I think I am going to hold the aspirin at this time and put him on Protonix 40 mg intravenous every 12 hours or Nexium 40 mg intravenous every 12 hours. Ask gastroenterology to help follow. We will follow his hematocrit and hemoglobin. We will check T4, TSH, B12, and folate. We will check his hemoglobin A1c. 2. Diabetes mellitus type 2. We will see what his sugars are. In the past, he has had a history of diabetic ketoacidosis and hyperosmolar, hyperglycemic syndrome as well so we will see where we are. Probably would be reasonable to check some blood gases and just see about an acidosis. 3. Agitation, confusion, and I suspect the most likely thing is withdrawal from cocaine, so I am going to let him have some morphine. See if we can get him comfortable and then taper down the morphine. We are having to use restraints at this time. He is not able to give us much history. 4. Hypertension. 5. Nicotine dependence. We will give him a nicotine patch 21 mg daily. 6. History of sarcoma, status post excision around the left hip. He is followed by Dr. Mario Holman. cc: Jorge Patel MD
[2018-11-09 15:30] LABS: HEMOGLOBIN A1C 17.3 % (4.8-6.0)
[2018-11-09] MEDS ORDERED: REGLAN IV SCH (15:45)
[2018-11-09 15:56] LABS: IRON SATURATION 8 %; TIBC 339 ug/dL; TOTAL IRON 26 ug/dL (53-167); UNBOUND IRON 313 ug/dL (112-346)
[2018-11-09 16:14] LABS: ALLEN TEST YES; BLOOD TYPE ARTERIAL; METHB 1.2 % (0.0-1.5); O2(CT) 22.9 mL/dL (15.0-23.0); O2HB 95.1 % (95.0-99.0); PCO2(98.6) 24 mmHg (35-45); PO2(98.6) 92 mmHg (60-100); SAMPLE BLOOD; SAO2 97.9 % (95.0-100.0); THB 17.1 g/dL (11.5-17.4); pH(98.6) 7.35 (7.35-7.45)
[2018-11-09 16:15] LABS: MODALITY ROOM AIR
[2018-11-09 16:17] LABS: FERRITIN 276 ng/mL (30-400)
[2018-11-09] MEDS: HUMULIN R SUBQ SCH ×3 (18:31→22:47)
[2018-11-09] MEDS: NICODERM PATCH TD SCH (18:38)
--- NOTE | 2018-11-09 19:16 | GASTROENTEROLOGY CONSULTATION ---
DATE: 11/09/2018 REQUESTING PHYSICIAN: Dr. Jorge Patel. PRIMARY DOCTOR: None. REASON FOR CONSULTATION: Coffee-ground emesis. HISTORY OF PRESENT ILLNESS: Mr. Davis is a 53-year-old male who was admitted on 11/09/2018 for abdominal pain. In the hospital he was given Geodon and he became confused and agitated. His urine blood screen was positive for cocaine and opioids. This was done at [facility] earlier today. The patient had am NG tube insertion in the ER and had showed evidence of some coffee grounds. Gastroenterology was consulted for further management. PAST MEDICAL HISTORY: The patient has history of diabetes mellitus. He had a recent admission for hyperosmolar hyperglycemic non-ketoacidosis. Complication from uncontrolled diabetes. Hypertension. Chronic back pain. Nicotine dependence. Cocaine use. 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 He is followed by Dr. Mario Holman in [place]. 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 PAST SURGICAL HISTORY: Sarcoma excision and peripheral stents due to blood counts per the records. SOCIAL HISTORY: Smoking history of half pack to 1 pack a day. No history of alcohol abuse. He has positive drug screen for cocaine and opioids. FAMILY HISTORY: Noncontributory. REVIEW OF SYSTEMS: Could not be obtained as the patient is currently drowsy from medications and cannot answer any questions. All history obtained from the records and the nursing staff. MEDICATIONS IN THE HOSPITAL: Include morphine, Nexium, Humulin R, Reglan, NicoDerm patch, normal saline 85 mL per hour, and Zofran. The patient currently NPO. PHYSICAL EXAMINATION: Vital signs: Temperature 98.2, pulse rate of 97, respiratory rate 20, blood pressure 139/78, saturating 99% on room air. Body weight of 190 pounds, BMI 28.9 kg/m2. General: Moderately built, moderately nourished, lying in bed. Currently agitated. He is in restraints. HEENT: No pallor. No icterus. Neck: Supple. Abdomen: Soft, nondistended. No guarding. Extremities: No cyanosis, clubbing. He has some scar sky from prior surgery on the left lower extremity. Neurologic: He is very drowsy and cannot answer any questions. LABORATORIES: His hemoglobin and hematocrit are 17.7 and 50.6, white count of 14.41, platelet count of 326,000. ABG showing pH 7.35, pO2 of 92. This is on room air. Blood glucose of 500, HB A1c 17.3. Iron level of 26%. Saturation 8. Troponin less than 0.01. B12 of 662. Folate of 33.2. Sodium 136, potassium 3.7, chloride 97, bicarb 23, anion gap 17, BUN of 11, creatinine 0.9, glucose is 500. Phosphorus 3.6, magnesium 1.5, AST 12, ALT 11, alkaline phosphatase 131, total protein is 8, albumin of 4.5, amylase of 30, lipase of 29. Gastroccult was positive. STUDIES: CT scan of the abdomen done earlier today showed evidence of fairly large amount of retained contents in the stomach. Some fluid present in the duodenal bulb. There was a cyst in the lower pole of left kidney and another one in the upper pole of the right kidney. There is some atherosclerotic calcification. No evidence of adenopathy. There is evidence of fusion L4-L5 and L5-S1. Some stool in the rectum. Impression: Gastric distention. IMPRESSION AND PLAN: 1. Admission with abdominal pain. Could be secondary to gastric fluid retention likely secondary to gastroparesis. 2. Uncontrolled diabetes mellitus. 3. Agitation and confusion. 4. Hypertension. 5. Nicotine dependence. 6. 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 7. History of deep venous thromboses. 8. Toxicity screen positive for opioids and cocaine. 9. Coffee grounds in the nasogastric tube. 10. Some stool in the rectum on CT scan. RECOMMENDATIONS: We will keep him on Nexium twice daily. He will continue on sliding scale insulin. We will continue IV fluids. We will continue to watch him closely and once his neurological status improves, we will assess him for possible EGD. He is on NicoDerm patch per the primary team. We will add some Dulcolax per rectal for constipation. The patient has a very high HB A1c and high baseline glucose. This will be managed per the primary team. The above plans were discussed to the patient's nurse at bedside. All questions answered. Please call us with any further questions. Thank you for allowing to participate in the care of this patient. cc: MD Jorge Molina MD [facility] HOSPITALFreddie
[2018-11-09] MEDS: NS 1,000 ML IV SCH (19:46)
--- NOTE | 2018-11-09 20:35 | Diag Imaging Result Doc PS360 ---
EXAM: CHEST/ABD TUBE PLACEMENT 11/09/2018 HISTORY: N/G tube placement TECHNIQUE: Chest and abdomen for NG tube placement portable at 2025 COMMENT: The NG tube tip is at the gastroesophageal junction. IMPRESSION: NG tube in the distal esophagus/gastroesophageal junction. Electronically signed by Pranay White 11/09/2018 8:32 PM
[2018-11-09] MEDS ORDERED: DULCOLAX PR SCH (21:00)
[2018-11-09] MEDS: MORPHINE IV PRN (21:48)
--- NOTE | 2018-11-09 21:56 | Diag Imaging Result Doc PS360 ---
EXAM: CHEST/ABD TUBE PLACEMENT 11/09/2018 HISTORY: NG tube placement TECHNIQUE: AP upright portable at 2143 COMMENT: The NG tube tip remains at the esophagogastric junction region. IMPRESSION: NG tube in the distal esophagus. Electronically signed by Pranay White 11/09/2018 9:53 PM
[2018-11-09] MEDS: SODIUM CHLORIDE 0.9% INJ SCH (22:27)
[2018-11-09] MEDS: NEXIUM IV SCH (22:28)
[2018-11-09 23:40] LABS: URINE SOURCE CATH
[2018-11-10 00:29] LABS: BILIRUBIN URINE NEGATIVE (NEGATIVE); BLOOD URINE MODERATE (NEGATIVE); COLOR STRAW; GLUCOSE URINE >1000 mg/dL (NEGATIVE); KETONE URINE 80 mg/dL (NEGATIVE); LEUKOCYTES URINE NEGATIVE (NEGATIVE); NITRITE URINE NEGATIVE (NEGATIVE); PH URINE 5.5; PROTEIN URINE 50 mg/dL (NEGATIVE); SP GRAVITY URINE 1.034; TURBIDITY URINE CLEAR (CLEAR); UROBILINOGEN URINE NORMAL (NORMAL)
[2018-11-10 00:30] LABS: UR EPITHELIAL CELLS <10 /HPF (<10); URINE BACTERIA NEGATIVE /HPF; URINE RBC <10 /HPF (<10); URINE WBC <10 /HPF (<10)
[2018-11-10] MEDS: HUMULIN R SUBQ SCH ×6 (01:52→20:45)
[2018-11-10 02:06] LABS: HEMATOCRIT 49.3 % (42.0-52.0); HEMOGLOBIN 16.9 g/dL (14.0-18.0)
[2018-11-10] MEDS ORDERED: NS 1,000 ML IV ONE ×2 (03:55→11:26)
[2018-11-10] MEDS: NS 1,000 ML IV SCH (05:20)
[2018-11-10 05:49] LABS: BASO# 0.01 X1000 (0.0-0.2); BASO% 0.1 % (0.0-0.8); HEMATOCRIT 46.8 % (42.0-52.0); HEMOGLOBIN 16.2 g/dL (14.0-18.0); IMM GRAN# 0.07 X1000 (0.0-0.04); IMM GRAN% 0.4 % (0.0-0.5); LYMPH# 1.36 X1000 (1.2-3.4); LYMPH% 7.2 % (20.5-51.1); MCH 29.8 PG (27-31); MCHC 34.6 g/dL (33-37); MONO# 1.85 X1000 (0.11-0.59); MONO% 9.7 % (1.7-9.3); MPV 9.1 FL (7.4-10.4); NEUT# 15.72 X1000 (1.4-6.5); NEUT% 82.6 % (42.2-75.2); PLT 245 X1000 (130-400); RBC 5.44 XMIL (4.7-6.1); RDW 13.9 % (11.5-14.5); WBC 19.01 X1000 (4.8-10.8)
[2018-11-10 06:06] LABS: INR 1.02; PROTIME 14.2 Seconds (11.0-16.0)
[2018-11-10 06:07] LABS: PTT 23.7 Seconds (22.3-41.8)
[2018-11-10 06:18] LABS: ALB/GLOB RATIO 1.1; ALBUMIN 3.9 g/dL (3.5-5.0); CALCIUM 9.3 mg/dL (8.8-10.2); CREATININE 1.6 mg/dL (0.7-1.2); MAGNESIUM 2.2 mg/dL (1.5-2.7); POTASSIUM 4.6 mmol/L (3.5-5.1); TOTAL BILIRUBIN 0.36 mg/dL (0.20-1.00); TOTAL PROTEIN 7.3 g/dL (6.3-8.3)
--- NOTE | 2018-11-10 07:19 | Diag Imaging Result Doc PS360 ---
EXAM: CHEST/ABD TUBE PLACEMENT 11/10/2018 HISTORY: NG tube placement TECHNIQUE: AP portable at 0251 four NG tube placement COMMENT: The NG tube tip is still at the esophagogastric junction. There is some redundancy of the tube in the esophagus compared to the previous study. IMPRESSION: NG tube tip in the distal esophagus. Electronically signed by Pranay White 11/10/2018 7:16 AM
--- NOTE | 2018-11-10 07:30 | EKG Report ---
Test Performed on : 11/10/2018 03:37:05 AM Test Reason : increase in HR Blood Pressure : / mmHG Vent. Rate : 130 BPM Atrial Rate : 130 BPM P-R Int : 122 ms QRS Dur : 068 ms QT Int : 354 ms P-R-T Axes : 071 055 066 degrees QTc Int : 520 ms Sinus tachycardia. Left ventricular hypertrophy with repolarization abnormality Abnormal ECG When compared with ECG of 09-NOV-2018 07:39, (Unconfirmed) ST no longer elevated in Lateral leads Confirmed by Lauri Forde MD ([id number]) on 11/14/2018 9:41:44 PM
--- NOTE | 2018-11-10 07:34 | EKG Report ---
Test Performed on : 11/09/2018 07:39:44 AM Test Reason : abd pain ? etiology Blood Pressure : / mmHG Vent. Rate : 098 BPM Atrial Rate : 098 BPM P-R Int : 128 ms QRS Dur : 068 ms QT Int : 382 ms P-R-T Axes : 078 054 064 degrees QTc Int : 487 ms Poor data quality, interpretation may be adversely affected Normal sinus rhythm. Biatrial enlargement Left ventricular hypertrophy Prolonged QT Abnormal ECG When compared with ECG of 17-AUG-2018 17:45, QT has lengthened Unconfirmed Result
[2018-11-10 08:00] LABS: HEMATOCRIT 46.3 % (42.0-52.0); HEMOGLOBIN 16.1 g/dL (14.0-18.0)
[2018-11-10 08:28] LABS: ALLEN TEST YES; BE -1.2 mmoll (-3.0-3.0); BLOOD TYPE ARTERIAL; HCO3-(ACT) 23.7 mmoll (20.0-26.0); METHB 0.8 % (0.0-1.5); O2(CT) 20.4 mL/dL (15.0-23.0); PCO2(98.6) 29 mmHg (35-45); PO2(98.6) 52 mmHg (60-100); SAMPLE BLOOD; SAO2 91.9 % (95.0-100.0); THB 16.2 g/dL (11.5-17.4); pH(98.6) 7.47 (7.35-7.45)
[2018-11-10 08:31] LABS: MODALITY VENTIMASK; O2HB 89.8 % (95.0-99.0)
[2018-11-10] MEDS ORDERED: VANCOMYCIN 1 GM/NS 1 GM/250 ML IVPB IV ONE (08:33)
[2018-11-10 08:36] LABS: BASO# 0.01 X1000 (0.0-0.2); BASO% 0.1 % (0.0-0.8); HEMATOCRIT 46.2 % (42.0-52.0); HEMOGLOBIN 16.1 g/dL (14.0-18.0); IMM GRAN# 0.05 X1000 (0.0-0.04); IMM GRAN% 0.3 % (0.0-0.5); LYMPH# 1.31 X1000 (1.2-3.4); LYMPH% 7.2 % (20.5-51.1); MCH 29.6 PG (27-31); MCHC 34.8 g/dL (33-37); MCV 84.9 FL (81-99); MONO# 2.43 X1000 (0.11-0.59); MONO% 13.4 % (1.7-9.3); MPV 9.5 FL (7.4-10.4); NEUT# 14.38 X1000 (1.4-6.5); PLT 261 X1000 (130-400); RBC 5.44 XMIL (4.7-6.1); WBC 18.18 X1000 (4.8-10.8)
[2018-11-10] MEDS ORDERED: VANCOMYCIN IV PER PHARMACY MISC SCH (08:45)
[2018-11-10] MEDS ORDERED: NS 1,000 ML IV SCH (09:01)
--- NOTE | 2018-11-10 09:01 | Diag Imaging Result Doc PS360 ---
EXAM: CHEST-PORTABLE 11/10/2018 HISTORY: Low SpO2 TECHNIQUE: AP portable at 0838 COMMENT: The inspiration is suboptimal. The NG tube has been removed. Otherwise are has been no significant change since the previous study at 0251. IMPRESSION: No evidence of acute disease. Electronically signed by Pranay White 11/10/2018 8:59 AM
--- NOTE | 2018-11-10 09:25 | Diag Imaging Result Doc PS360 ---
EXAM: CT HEAD W/O CONTRAST 11/10/2018 HISTORY: R/O bleed TECHNIQUE: This exam was performed using automated exposure control, adjustment of mA or kV according to patient size, and/or use of iterative reconstruction technique. COMMENT: There is encephalomalacia in the right parietal convexity posteriorly. In addition to this there is hypodensity present throughout much of the perisylvian right temporal lobe and adjacent parietal lobe which may indicate an extension of the chronic ischemic defect. There is no evidence of shift of midline structures at this time and no abnormal extra-axial fluid collections or areas of bleed are present. There are no previous examinations available for comparison. IMPRESSION: Subacute infarction in the distribution of the right middle cerebral artery, probably superimposed on old encephalomalacia. The findings were discussed with Lloyd Sampson MD at 11/10/2018 9:23 AM. Electronically signed by Pranay White 11/10/2018 9:23 AM
--- NOTE | 2018-11-10 09:30 | PROGRESS NOTE ---
DATE: 11/10/2018 SUBJECTIVE: He is more agitated. He is less responsive this morning, and does not appear to be moving his left side. Right side of his lungs sound diminished. OBJECTIVE: T-max was a 100.1 degrees, pulse 110, respirations 17, blood pressure 113/77. Pupils are difficult to evaluate at this point. Lungs are clear on the left side. On the right, they seem to be diminished. Cardiovascular: Sinus tachycardia. Abdomen: Soft, nondistended. We pulled out the NG tube. He is in restraints. Extremities: He is moving his right leg and right arm, and seems to respond to voice and touch. Does not open his eyes. LABORATORY AND DIAGNOSTIC: Urine output was 1400 mL. Chest x-ray done this morning. Both lungs appear clear. I do not see any pleural effusion. ASSESSMENT AND PLAN: This is a patient that came in with abdominal pain. He had recently gone to [place], and was discharged, and went home. Called the ambulance because of abdominal pain. When he got to the emergency room, he was very agitated. At that time, he was moving all extremities. Difficult to keep in the bed, required restraints, and was given some Geodon. Because his lab was positive for cocaine, we gave him some morphine. He has a history of gastroparesis. NG tube showed some blood. We are concerned about an upper GI bleed. This morning hemoglobin 16, hematocrit 46. Toxicology yesterday was positive for cocaine and positive for opiates. The plan is to get a CT of his head and move him to the unit. Concerned He could be having a stroke on his right hemisphere. He did not show significant blood loss so moved to the unit. LABORATORY DATA: Labs from this morning, his white count is still elevated at 18,180, hematocrit is 46, and platelet count 261,000. Chemistry: Sodium 148, potassium 4.6, chloride 110, BUN 26, and creatinine 1.6. I plan to move him to the unit. His blood gas this morning pH of 7.47, pCO2 29, PO2 is 52, and O2 saturation were 89% on 50% Venti mask. Concerned about aspiration. His x-ray does not show it, but cover with broad-spectrum antibiotics. I will put him on cefepime and vancomycin. Fluids going in at 85 mL an hour normal saline. I am going to increase his fluids to 125 mL an hour. cc: Jorge Patel MD
[2018-11-10] MEDS: NICODERM PATCH TD SCH (09:31)
[2018-11-10] MEDS: MORPHINE IV PRN ×2 (09:32→14:11)
[2018-11-10 09:33] LABS: ALB/GLOB RATIO 1.4; CALCIUM 9.3 mg/dL (8.8-10.2); CREATININE 1.5 mg/dL (0.7-1.2); POTASSIUM 4.1 mmol/L (3.5-5.1); TOTAL BILIRUBIN 0.37 mg/dL (0.20-1.00); TOTAL PROTEIN 6.8 g/dL (6.3-8.3)
[2018-11-10] MEDS ORDERED: D50W SYRINGE IV ONE (09:36)
[2018-11-10] MEDS: D5 NS 1,000 ML IV SCH ×2 (09:43→20:45)
[2018-11-10] MEDS: NEXIUM IV SCH ×2 (09:45→20:45)
[2018-11-10] MEDS: MAXIPIME 2 GM in NS 100 ML IV SCH ×2 (09:47→21:45)
--- NOTE | 2018-11-10 10:07 | PROGRESS NOTE ---
DATE: 11/10/2018 SUBJECTIVE: Mr. Davis was moved to the ICU. CT scan without contrast shows a right parietal infarct consistent with exam. He is not moving his left arm or hand. He is opening his eyes, and I think he can hear and seems to understand. He is moving his right side without difficulty. Breathing comfortably. His chest x-ray did not show any new infiltrate. OBJECTIVE: Remains afebrile. Temperature 98.6 degrees, pulse 111, respirations 17, and blood pressure 113/77. HEENT: Pupils are equal and round. Lungs: Clear in all lung helm. Cardiovascular: Regular rhythm and rate without murmur or S3. Abdomen: Soft. Skin: Warm and dry. Urine output is 1400 mL. ASSESSMENT AND PLAN: 1. Subacute infarct distribution of right middle cerebral artery, probably superimposed on old encephalomalacia. He has left-sided hemiparesis. 2. He presented with abdominal pain, and was positive for cocaine and opiates. He has a history of gastroparesis. 3. Diabetes mellitus type 2. We will continue to follow sugars. Right now, sugars are a little low. Given his recent CVA we will give him some D5 normal saline. Last blood sugar was 188. His last sequential sugars of 187, 188, 62 and 69 so we will give him some D5. His electrolytes show sodium 149, potassium 4.1, chloride 112, BUN 27, and creatinine 1.5. We are going to cover him empirically for infection although I do not see any evidence of urinary tract infection or lung flexion. cc: Jorge Patel MD
[2018-11-10] MEDS ORDERED: VANCOMYCIN 1.7 GM in NS 250 ML IV ONE (11:00)
[2018-11-10] MEDS ORDERED: DIPRIVAN 1% 1,000 MG/100 ML BOTTLE ONE (11:21)
[2018-11-10] MEDS ORDERED: D5 1/2 NS 1,000 ML IV SCH (11:30)
[2018-11-10] MEDS: NEO-SYNEPHRINE 50 MG in NS 250 ML IV SCH ×3 (11:35→21:45)
[2018-11-10] MEDS ORDERED: QUELICIN (DOSE) ONE (11:45)
[2018-11-10] MEDS ORDERED: XYLOCAINE-MPF 2% ONE (11:45)
[2018-11-10] MEDS ORDERED: SODIUM CHLORIDE 0.9% 20 ML ONE (11:45)
[2018-11-10] MEDS ORDERED: NEO-SYNEPHRINE ONE (11:45)
[2018-11-10] MEDS ORDERED: DIPRIVAN 1% ONE (11:46)
--- NOTE | 2018-11-10 11:49 | Diag Imaging Result Doc PS360 ---
EXAM: CHEST-PORTABLE 11/10/2018 HISTORY: intubation TECHNIQUE: AP portable semierect at 1141 COMMENT: There is an endotracheal tube with its tip at the thoracic inlet. There is increased opacity in the right base probably in the lower lobe and consistent with atelectasis and/or pneumonia. The left lung is clear. The heart size and primary vascularity are within normal limits. IMPRESSION: Right lower lobe atelectasis versus pneumonia. Electronically signed by Pranay White 11/10/2018 11:47 AM
[2018-11-10] MEDS: DIPRIVAN 1% 1,000 MG/100 ML BOTTLE IV SCH ×3 (12:00→22:46)
[2018-11-10 12:16] LABS: ALLEN TEST YES; BE -5.7 mmoll (-3.0-3.0); BLOOD TYPE ARTERIAL; HCO3-(ACT) 20.5 mmoll (20.0-26.0); METHB 1.3 % (0.0-1.5); O2(CT) 20.1 mL/dL (15.0-23.0); O2HB 96.8 % (95.0-99.0); PCO2(98.6) 36 mmHg (35-45); PO2(98.6) 215 mmHg (60-100); SAMPLE BLOOD; SRATE 16 BPM; THB 14.4 g/dL (11.5-17.4); TVOL 650 mL; pH(98.6) 7.34 (7.35-7.45)
[2018-11-10 12:18] LABS: MODALITY VENTILATOR
[2018-11-10 13:39] LABS: HEMATOCRIT 39.9 % (42.0-52.0); HEMOGLOBIN 13.4 g/dL (14.0-18.0)
--- NOTE | 2018-11-10 14:53 | CONSULTATION ---
DATE OF CONSULTATION: 11/10/2018 HISTORY: Mr. Davis is 53 years old, and there is imaging evidence of likely acute right hemisphere infarction with question of underlying old right hemisphere encephalomalacia. There is not family available to provide past neurologic history now. Mr. Davis is sedated, and not able to provide history. I have reviewed the admission notes. I do not find any old notes regarding prior neurologic event or deficit. We do not have any record of old brain imaging in this computer system. By report, Mr. Davis presented to the hospital with chief complaint of abdominal pain. While here, he became restless, and then there was noted to be left hemiplegia. Noncontrast CT shows evidence of likely recent ischemic infarction in the right hemisphere, and apparent underlying old encephalomalacia there. His urine drug screen was positive for cocaine on admission. He has long- standing diabetes mellitus with reported recent A1c 14. He continues to smoke cigarettes. He had prior admissions with blood sugar greater than 500 in September, and with blood sugar greater than 900 in August. There is reported past history of DVT and he has been treated with Eliquis. There was recorded temperature 100.1 degrees earlier but he isafebrile now. Systolic blood pressures have ranged 110s to 150s. Heart rate has ranged 100s to 130s. PHYSICAL EXAMINATION: On exam now, Mr. Davis is supine, intubated, and mechanically ventilated. Propofol is on board. There is minimal lateral extraocular movement with passive head turning. Pupils react minimally to bright light bilaterally. Corneal reflex is present bilaterally, a little bit better on the left than the right. I could not see definite facial asymmetry with tube and tape is in place. Limb tone is diminished on the left compared to the right. There was no definite voluntary or purposeful muscle contraction or withdrawal with noxious stimulation over the limbs. Plantar response is silent bilaterally. Reflexes are absent at the ankles bilaterally. IMPRESSION: 1. Global encephalopathy, likely current unconsciousness related to propofol on board. Imaging does not show evidence of increased intracranial pressure or definite brainstem lesion to explain his unresponsiveness. I suppose there is the possibility that he had other ingestion and there may be intoxication syndrome on that basis, but I do not have a definite history of that. 2. Imaging evidence of likely acute right hemisphere infarction with clinical findings of flaccid left limbs. Cocaine may have triggered arterial spastic syndrome. Evaluation of his vascular status is in progress. Carotid ultrasound shows some moderate stenosis in the right internal carotid. His creatinine is elevated above baseline, and I am reluctant to push for a CT angiogram of the head now. Brain MRA would be an option, but I do not know if that can be obtained while he is on the ventilator. 3. I do not have any urgent suggestion from Neurology standpoint. I would continue to try to maintain adequate blood pressure, continue fluids, follow clinically, consider vascular imaging when practical and available. Thanks for asking Neurology to see Mr. Davis. cc: MD MERCEDES Patton III
[2018-11-10] MEDS ORDERED: HEPARIN IV ONE (15:19)
[2018-11-10] MEDS ORDERED: HEPARIN IV PRN (15:19)
--- NOTE | 2018-11-10 15:19 | ECHO REPORT ---
ORDER DATE: 11/10/2018 ECHOCARDIOGRAPHIC MEASUREMENTS: 1. Interventricular septum 1.0. 2. Left ventricular posterior wall 0.9. 3. Diastolic diameter 4.1. 4. Aorta 3.4 cm. SUMMARY: 1. Technically suboptimal study. Very poor acoustic window. 2. Pulmonic valve not well visualized. 3. Aortic valve leaflets not well visualized. 4. Mitral valve was normal. 5. Tricuspid valve not well visualized. There is mild mitral regurgitation. Peak velocity across the aortic valve was less than 2 m/sec. By Doppler studies, there is no aortic stenosis or regurgitation. 6. There is trace mitral regurgitation. 7. Optison was used to assess left ventricular systolic function. Normal left ventricular cavity size. Estimated ejection fraction of 70%. 8. Technically suboptimal study. None of the valves were very well visualized as the indication is to rule out vegetation. If necessary, would recommend a transesophageal echocardiogram to rule out vegetation. cc: MD Jorge Morales MD
[2018-11-10] MEDS ORDERED: HEPARIN 25,000 UNITS/D5W 25,000 UNIT/250 ML IV.SOLN IV SCH (15:30)
[2018-11-10] MEDS: TYLENOL PR PRN (15:50)
--- NOTE | 2018-11-10 16:05 | GENERAL SURGERY CONSULTATION ---
DATE: 11/10/2018 REQUESTING PHYSICIAN: Been called by Dr. Patel to evaluate Mr. Davis. HISTORY OF PRESENT ILLNESS: He is a 53-year-old gentleman who was intubated this morning due to respiratory distress and agitation. Apparently, he was admitted yesterday complaining of abdominal pain. He also apparently was reported to be the somewhat agitated. Because of his agitation, he was given some morphine. This morning, he was transferred to the ICU because of his agitation and respiratory distress and now is intubated. He is sedated. I was asked to see him because of the questionable carotid imaging study. He has a history apparently of a TIA in the past based on his old records but apparently was moving everything until this morning when he was noted to be not moving his left arm and left leg. CT scan done this morning at 9 o'clock suggested an infarct in the distribution of the right middle cerebral artery and it was considered subacute. This would coincide with his loss of left arm function and left leg function. The carotid imaging shows what appears to be a low-density defect in the carotid bulb. It is slightly mobile consistent with a clot. However, there is flow around this clot into the internal carotid, and the peak velocity is about 166 cm/sec, but there is definite flow past the clot. PAST MEDICAL HISTORY: Pertinent for poorly controlled diabetes, hypertension, chronic back pain, nicotine dependence, cocaine use. A history of blood clots and apparently he has been on Eliquis for that reason. He has a history of a sarcoma excision of the left hip. Supposedly he has had some stents. I do not know if these are in the arterial system or venous system. SOCIAL HISTORY: He is a smoker. He has used cocaine. REVIEW OF SYSTEMS: Not obtainable due to the patient's intubated status and sedation. FAMILY HISTORY: Not obtainable due to the patient's intubated status and sedation. PHYSICAL EXAMINATION: Vital signs: Temperature is 101 degrees, heart rate is currently 95, blood pressure is 159/100. General: He is unresponsive. It is difficult to evaluate his strength. Lungs: He has bilateral breath sounds. Abdomen: Soft. No peripheral edema. [place]ORY [place]: [place] [address], hemoglobin 16.1, hematocrit 46. On the ventilator, his PO2 is now 215 on 100% FiO2. BUN 27, creatinine 1.5. ASSESSMENT AND PLAN: I believe this man has had an acute right cerebral infarct in the distribution of his middle cerebral artery. His carotid imaging suggests a clot in his right carotid bulb extending into the internal but there remains flow around this up his internal carotid. The flow seems reasonable with a peak systolic velocity of 166 cm/sec. The waveform does not suggest distal occlusion in the internal. In view of the fact that he has flow around the carotid and in view of the fact that he has an acute infarct in his right cerebral hemisphere, I do not think that urgent intervention will help this patient; it might, in fact hurt him, and so I would simply recommend anticoagulation at this point because of what appears to be a clot in his carotid bulb and his history of clots as well. I will follow along. Thanks for the opportunity to see him. cc: Alexis Phillips MD
--- NOTE | 2018-11-10 17:19 | Carotid Study ---
DATE: 11/10/2018 PROCEDURE: Carotid imaging study. REFERRING PHYSICIAN: Dr. Patel. INTERPRETING PHYSICIAN: Dr. Alexis Phillips. TECH: [place]. INDICATIONS: The patient apparently has had a CVA. OBSERVED DATA RIGHT LEFT Brachial Blood Pressure Carotid Pulse Bruits: Carotid/Sub DIAGRAM OF ULTRASOUND IMAGING R L RIGHT INT EXT INT EXT LEFT Yannick (cm/s) Yannick (cm/s) Subclavian 84/0 Subclavian 57/0 CCA Proximal 85/10 CCA Proximal 101/29 CCA Distal 54/11 CCA Distal 66/14 Bulb 52/11 Bulb 77/13 ICA Proximal 166/54 ICA Proximal 43/17 ICA Mid 144/23 ICA Mid 95/33 ICA Distal 102/34 ICA Distal 88/39 ECA 67/12 ECA 216/33 Vertebral 59/17 A Vertebral 104/29 A ICA/CCA Ratio 1.9 ICA/CCA Ratio 0.9 % Stenosis 60-79% % Stenosis 0-39% PHYSICIAN INTERPRETATION: There is plaque in the right bulb that is smooth. There does appear to be possibly slightly mobile clot on the tail end of the plaque. There is flow around this and the flow is easily seen. The stenosis is reaching hemodynamic consequence. There is some intimal thickening on the left but there is no significant stenosis present. There is antegrade vertebral flow bilaterally. cc: MD Jorge Hernandez MD
--- NOTE | 2018-11-10 18:39 | PULMONOLOGY CONSULTATION ---
DATE: 11/10/2018 REQUESTING PHYSICIAN: Dr. Patel. REASON FOR CONSULTATION: Respiratory failure. HISTORY OF PRESENT ILLNESS: Mr. Davis is a 53-year-old black male with diabetes mellitus, ongoing tobacco use, history of drug use, who presented to [facility] with abdominal pain. He was discharged only to return. Drug screen was positive for cocaine. He became agitated, requiring sedation. He was noted to move his extremity asymmetrically and was not moving his left side this morning. Patient was transferred to the Intensive Care Unit. The patient had progressive increased oxygen requirements and I was notified that the patient was on BiPAP. I discussed with the nurse that if he had any decline before my arrival to have him intubated. Just before I arrived, oxygen saturations were dropping and he was intubated by Anesthesia. Upon my arrival, patient was hypotensive and fluid boluses were initiated along with Ronnie-Synephrine. PAST MEDICAL HISTORY/PROBLEMS LIST: 1. Poorly-controlled diabetes mellitus with a history of hyperosmolar hyperglycemic nonketotic acidotic coma. 2. Hypertension. 3. Nicotine dependence. 4. Cocaine use. 5. History of sarcoma. 6. Peripheral vascular disease with prior stents in the lower extremities. SOCIAL HISTORY: Ongoing tobacco use. No alcohol use listed. Drug screens have been positive for cocaine. FAMILY HISTORY: Not available for review. REVIEW OF SYSTEMS: Cannot be obtained. PHYSICAL EXAMINATION: General: Reveals a well-developed male on mechanical ventilation. He appears older than his stated age of 53. Vital Signs: BP 147/98, heart rate 95, respiratory rate 16, oxygen saturation 100%. Temperature earlier this morning was 101 degrees. HEENT: Pupils are equal. Oropharynx appears dry with endotracheal tube in place. Neck: Supple. Chest: Reveals rhonchi bilaterally. Cardiac: S1, S2, increased rate. No definite murmur. Abdomen: Soft. Extremities: Cool to the touch. LABORATORIES: Chest x-ray following intubation reveals endotracheal tube to be in good position with infiltrates at the right lung base. CT scan of the brain reveals subacute infarction in the right middle cerebral artery distribution with probable component of old encephalomalacia. Echocardiogram reveals good LV function, mild mitral regurgitation, tricuspid valve not well visualized. Study not adequate to rule out vegetation. Carotid Doppler studies noted in Dr. Phillips's note are notable for a blood clot in the carotid bulb. Arterial blood gas following intubation, pH 7.34, pCO2 of 36, PO2 of 215 on 100% FiO2. IMPRESSION: A 53-year-old with: 1. Acute hypoxemic respiratory failure. 2. Acute stroke with blood clot identified in the carotid bulb. 3. Poorly controlled diabetes mellitus. 4. Ongoing tobacco use. 5. Peripheral vascular disease. 6. Fevers. RECOMMENDATIONS: 1. Fluid boluses as outlined above with continued hydration. 2. Vasopressors as needed to maintain systolic blood pressure greater than 150 given acute stroke. 3. Agree with anticoagulation as outlined per Dr. Phillips. 4. Agree with broad spectrum antibiotics. 5. Overall prognosis is guarded. cc: Mane Roca MD
[2018-11-10 20:43] LABS: HEMATOCRIT 42.8 % (42.0-52.0); HEMOGLOBIN 14.6 g/dL (14.0-18.0)
[2018-11-11] MEDS: DIPRIVAN 1% 1,000 MG/100 ML BOTTLE IV SCH ×5 (04:00→21:06)
[2018-11-11] MEDS: D5 NS 1,000 ML IV SCH (04:00)
[2018-11-11 04:37] LABS: ALLEN TEST YES; BE -6.4 mmoll (-3.0-3.0); BLOOD TYPE ARTERIAL; HCO3-(ACT) 19.9 mmoll (20.0-26.0); O2(CT) 20.6 mL/dL (15.0-23.0); O2HB 96.6 % (95.0-99.0); PCO2(98.6) 27 mmHg (35-45); PO2(98.6) 139 mmHg (60-100); SAMPLE BLOOD; SAO2 98.6 % (95.0-100.0); SRATE 16 BPM; TVOL 650 mL
[2018-11-11 04:38] LABS: MODALITY VENTILATOR
[2018-11-11] MEDS: NEO-SYNEPHRINE 50 MG in NS 250 ML IV SCH ×4 (04:43→18:35)
[2018-11-11 05:21] LABS: HEMATOCRIT 39.1 % (42.0-52.0); HEMOGLOBIN 13.1 g/dL (14.0-18.0); MCH 29.8 PG (27-31); MCHC 33.5 g/dL (33-37); MCV 89.1 FL (81-99); MPV 11.2 FL (7.4-10.4); RBC 4.39 XMIL (4.7-6.1); RDW 14.2 % (11.5-14.5); WBC 8.37 X1000 (4.8-10.8)
[2018-11-11 05:47] LABS: AGAP 13; ALB/GLOB RATIO 0.8; ALBUMIN 2.5 g/dL (3.5-5.0); ALKALINE PHOSPHATASE 83 U/L (32-122); BUN 17 mg/dL (8-22); CALCIUM 7.9 mg/dL (8.8-10.2); CHLORIDE 114 mmol/L (98-107); COSMO 297; ESTIMATED GFR > 60; GLUCOSE 288 mg/dL (70-104); GOT 24 U/L (10-34); GPT 9 U/L (10-44); MAGNESIUM 1.6 mg/dL (1.5-2.7); PHOSPHORUS 2.2 mg/dL (2.7-4.5); POTASSIUM 4.5 mmol/L (3.5-5.1); SODIUM 143 mmol/L (136-145); TCO2 16 mmol/L (25-35); TOTAL BILIRUBIN 0.35 mg/dL (0.20-1.00); TOTAL PROTEIN 5.6 g/dL (6.3-8.3)
[2018-11-11] MEDS ORDERED: HEPARIN IV ONE (06:11)
[2018-11-11] MEDS: HUMULIN R SUBQ SCH ×6 (06:30→23:25)
--- NOTE | 2018-11-11 07:19 | Diag Imaging Result Doc PS360 ---
EXAM: CHEST-PORTABLE 11/11/2018 HISTORY: respiratory failure TECHNIQUE: AP portable at 0535 COMMENT: There is ill-defined alveolar opacity in the right lower lobe which is worsened since the previous study of 11/10/2018. The endotracheal tube remains with its tip at the thoracic inlet. IMPRESSION: Worsening right lower lobe pneumonia. Electronically signed by Pranay White 11/11/2018 7:17 AM
[2018-11-11] MEDS: NICODERM PATCH TD SCH (07:59)
[2018-11-11] MEDS: SODIUM CHLORIDE 0.9% INJ SCH (07:59)
[2018-11-11] MEDS: NEXIUM IV SCH ×2 (07:59→21:06)
[2018-11-11] MEDS ORDERED: NS 1,000 ML IV SCH (08:00)
--- NOTE | 2018-11-11 08:14 | PROGRESS NOTE ---
DATE: 11/11/2018 SUBJECTIVE: Mr. Davis is on the ventilator. The nurse reported that she did see some movement of his left shoulder some last night. OBJECTIVE: Vital Signs: His temperature was 101 degrees, T-max at present is 97.7, pulse 98, respirations 20, blood pressure 156/91. Eyes: Pupils are equal and round. Lungs: Clear in all lung heml anterolateral. Cardiovascular exam: Regular rhythm and rate without murmur or S3. Abdomen: Soft. Skin: Warm and dry. : Urine output is 1400 mL. Neurologic: I do not see any spontaneous movement or movement to touch her stimuli on the left side. Right side is moving freely. LABORATORY DATA: White count 8370, hematocrit is 39, platelet count is 168,000. White count has come down from 18,000 yesterday. Sodium 143, potassium 4.5, chloride 114. BUN 17, creatinine 1.0. Blood sugar 174, 276 and 288. ASSESSMENT AND PLAN: 1. Worsening right lower lobe pneumonia radiographically. Continue present antibiotics. He is on cefepime and vancomycin. 2. Right-sided carotid thrombosis and a stroke, cerebrovascular accident in the right middle arterial distribution. He is on intravenous heparin. We have eased him slowly, but his PTT is 44 this last time. He does have some flow on that right side. So, continue heparin. We will check a CAT scan again today. 3. Diabetes mellitus type 2. Follow blood sugars closely. Err on the side of when his sugars stay up above 100. 4. Ongoing tobacco use. 5. Peripheral vascular disease. 6. Cocaine use. Note I suspect he was on Eliquis. I am not sure when he quit the Eliquis. The combination of stopping his Factor 10 inhibitor and using cocaine probably put him in a hypercoagulable state. cc: Jorge Patel MD
[2018-11-11] MEDS: TYLENOL PR PRN ×2 (08:25→23:25)
[2018-11-11] MEDS: MAXIPIME 2 GM in NS 100 ML IV SCH ×2 (09:09→21:07)
[2018-11-11] MEDS: VANCOMYCIN 1,700 MG in NS 250 ML IV SCH (11:23)
[2018-11-11] MEDS: HEPARIN 25,000 UNITS/D5W 25,000 UNIT/250 ML IV.SOLN IV SCH (12:49)
--- NOTE | 2018-11-11 13:51 | Diag Imaging Result Doc PS360 ---
EXAM: CT HEAD W/O CONTRAST 11/11/2018 HISTORY: cva, on heparin TECHNIQUE: This exam was performed using automated exposure control, adjustment of mA or kV according to patient size, and/or use of iterative reconstruction technique. COMMENT: The hypodense abnormality in the right parietal and temporal lobe described on the previous study of 11/10/2018 is now more well-defined. There is now a small focus of petechial hemorrhage present on image 29 on the medial aspect of the hypodense zone. There has been no appreciable change in the position of the midline structures. No evidence of abnormal extra-axial fluid collection is present. Otherwise are has been no significant change. IMPRESSION: Evolving right middle cerebral infarct superimposed on previous infarct. New petechial hemorrhage. Electronically signed by Pranay White 11/11/2018 1:49 PM
--- NOTE | 2018-11-11 13:57 | GENERAL SURGERY PROGRESS NOTE ---
DATE: 11/11/2018 Mr. Davis remains on the ventilator, sedated. His heart rate is 99, blood pressure 129/85. It is difficult to evaluate his neurologic status at this point. He is on heparin. His PTT is last recorded at 44.2. I think Dr. Patel plans a repeat CT of his head later today. I did speak with his sister. cc: Alexis Phillips MD
--- NOTE | 2018-11-11 14:05 | GASTROENTEROLOGY CONSULTATION ---
DATE: 11/11/2018 CONSULTING PHYSICIAN: Dr. Patel. REASON FOR CONSULTATION: GI bleed. HISTORY OF PRESENT ILLNESS: This is a 53-year-old, gentleman, admitted to the hospital with history of abdominal pain. On admission, he was very agitated, confused. At that time, NG tube was placed and the NG tube had approximately 500 mL of blood-tinged secretion. Hence, the consult was obtained. Since then, the patient has been intubated and currently being treated for stroke. He has developed weakness on his left side. Apparently he has got peripheral vascular disease involving carotid artery. He has been on heparin for that. Most of the information was obtained from the chart, as well as the nurse in ICU. The patient is intubated and unable to speak. Ladpadma was present at the bedside, but she is not aware of most of his predicaments. Since his intubation yesterday, he has not had any evidence of GI bleed. He has not had any hematemesis or coughing or emesis. He has not had any melena or bright red blood per rectum. He is intubated, sedated and on ventilator. Currently he is also on pressors to keep his systolic high. PAST MEDICAL HISTORY: From the chart it appears patient has history of diabetes, hypertension, history of DKA, history of chronic pain and apparently he has history of sarcoma. Also has history of cocaine abuse. He has history of DVT in his lower extremities. SURGERIES: Sarcoma excision and peripheral vascular disease. Had arterial stents put in. SOCIAL HISTORY, FAMILY HISTORY, REVIEW OF SYSTEMS: Could not be obtained. Patient is sedated and intubated on ventilator. PHYSICAL EXAMINATION: Vitals: Temperature is 101.3 degrees, heart rate 97. He is on ventilator breathing at 18. Blood pressure 165/95. Eyes: Conjunctivae normal. Sclerae anicteric. Again, he is intubated. Neck: Supple. Chest: Has got harsh breath sounds bilaterally. No rhonchi could be heard. Heart: Audible murmur. Abdomen: Full, soft, nontender. Bowel sounds are sluggish. No pedal edema, cyanosis, clubbing noted. He is moving his right hand; I did not see any movement on the left hand. LABORATORIES REVIEWED: Shows hemoglobin 13.1, hematocrit 39.1. BUN was 17, creatinine 1.0. IMPRESSION: This is 53-year-old, unfortunate gentleman, who has presented with what appears to be cerebrovascular accident and appears to have had some weakness on the left side and vascular disease involving his carotid on the right side. He is currently on heparin, but he has not shown any signs of active bleeding since his nasogastric tube was placed and he had some blood-tinged aspirate then. His hemoglobin/hematocrit, although dropped, most likely was hemoconcentrated to begin with. His BUN and creatinine is adequate, does not indicate blood in the gut either. He is on proton pump inhibitor. He should be on gastrointestinal prophylaxis, is currently on Nexium 40 mg intravenous every 12 hours. I would continue that and continue to check hemoglobin/hematocrit and transfuse if necessary. As long as he is not actively bleeding, we can continue heparin and continue to follow. At this point, no Gastroenterology intervention needed. I will be available if needed. cc: Griffin Gracia MD
--- NOTE | 2018-11-11 14:09 | PULMONOLOGY PROGRESS NOTE ---
DATE: 11/11/2018 SUBJECTIVE: The patient is poorly responsive. He remains on Ronnie-Synephrine for hypotension. OBJECTIVE: Vital Signs: Maximum temperature in the last 24 hours was 101.3 degrees. BP is 142/107, heart rate 98, respiratory rate 20, and oxygen saturation 90%. HEENT: Pupils are sluggish. Oropharynx appears clear. Neck: Supple. Respiratory: The chest reveals coarse rhonchi bilaterally. Cardiac: Regular rate, normal S1, and normal S2. Abdomen: The abdomen is soft. Extremities: The extremities are slightly cool to the touch. LABORATORY DATA: Chest x-ray reveals an increased infiltrate at the right lung base. Sputum culture is pending. White blood count is 8.37, hemoglobin 13.1, and platelet count 168,000. Arterial blood gas on 40% FiO2 reveals a pH of 7.40, pCO2 of 27, and pO2 of 139. Sodium is 143, potassium 4.5, chloride 114, bicarbonate 16, BUN 17, and creatinine 1. IMPRESSION: A 53-year-old with: 1. Acute hypoxemic respiratory failure. 2. Acute stroke with a blood clot identified in the carotid bulb. 3. Pneumonia. 4. Poorly controlled diabetes mellitus. 5. Ongoing tobacco use. 6. Peripheral vascular disease. 7. Hyperchloremic metabolic acidosis. RECOMMENDATIONS: 1. Anticipate repeat CT scan later today. 2. Continue full ventilatory support. 3. Fluid adjustments to decrease hyperchloremia. 4. Continue antibiotics for pneumonia pending results of sputum cultures. 5. Continue anticoagulation. PROGNOSIS: Overall, prognosis appears guarded. Critical Care time: 30+minutes cc: Mane Roca MD [facility]
[2018-11-11] MEDS: SODIUM BICARBONATE 8.4% 100 MEQ in D5W 1,000 ML IV SCH (14:20)
[2018-11-11] MEDS ORDERED: VANCOMYCIN 1.4 GM in NS 250 ML IV SCH (17:00)
[2018-11-12] MEDS: NEO-SYNEPHRINE 50 MG in NS 250 ML IV SCH ×7 (00:55→21:59)
[2018-11-12] MEDS: SODIUM BICARBONATE 8.4% 100 MEQ in D5W 1,000 ML IV SCH ×3 (00:55→23:59)
[2018-11-12] MEDS: DIPRIVAN 1% 1,000 MG/100 ML BOTTLE IV SCH ×5 (01:03→18:22)
[2018-11-12] MEDS: TYLENOL PR PRN ×2 (03:43→08:54)
[2018-11-12 04:55] LABS: ALLEN TEST YES; BLOOD TYPE ARTERIAL; HCO3-(ACT) 23.4 mmoll (20.0-26.0); METHB 0.8 % (0.0-1.5); O2(CT) 18.8 mL/dL (15.0-23.0); O2HB 97.1 % (95.0-99.0); PCO2(98.6) 27 mmHg (35-45); PO2(98.6) 150 mmHg (60-100); SAMPLE BLOOD; SAO2 98.8 % (95.0-100.0); SRATE 16 BPM; THB 13.6 g/dL (11.5-17.4); TVOL 650 mL; pH(98.6) 7.48 (7.35-7.45)
[2018-11-12 04:56] LABS: MODALITY VENTILATOR
[2018-11-12] MEDS: HUMULIN R SUBQ SCH ×5 (05:01→21:11)
[2018-11-12] MEDS: VANCOMYCIN 1,700 MG in NS 250 ML IV SCH (05:28)
[2018-11-12 06:12] LABS: AGAP 14; ALB/GLOB RATIO 0.4; ALBUMIN 1.6 g/dL (3.5-5.0); ALKALINE PHOSPHATASE 97 U/L (32-122); BUN 14 mg/dL (8-22); CALCIUM 7.8 mg/dL (8.8-10.2); CHLORIDE 109 mmol/L (98-107); COSMO 292; ESTIMATED GFR > 60; GLUCOSE 247 mg/dL (70-104); GOT 43 U/L (10-34); GPT 14 U/L (10-44); POTASSIUM 3.6 mmol/L (3.5-5.1); SODIUM 142 mmol/L (136-145); TCO2 19 mmol/L (25-35); TOTAL BILIRUBIN 0.51 mg/dL (0.20-1.00); TOTAL PROTEIN 5.3 g/dL (6.3-8.3)
[2018-11-12 06:18] LABS: MAGNESIUM 1.6 mg/dL (1.5-2.7); PHOSPHORUS 2.6 mg/dL (2.7-4.5)
--- NOTE | 2018-11-12 07:13 | Diag Imaging Result Doc PS360 ---
EXAM: CHEST-PORTABLE 11/12/2018 HISTORY: respiratory failure TECHNIQUE: AP portable at 0526 COMMENT: There is an endotracheal tube with its tip slightly below the thoracic inlet. Compared to the previous study of 11/11/2018 there is now complete opacification of the right middle lobe and basilar lower lobe. This may be due to mucous plugging in the bronchus intermedius. IMPRESSION: Atelectasis of the right middle and lower lobes. The possibility of pneumonia cannot be excluded. Electronically signed by Pranay White 11/12/2018 7:10 AM
[2018-11-12] MEDS: HEPARIN 25,000 UNITS/D5W 25,000 UNIT/250 ML IV.SOLN IV SCH (08:21)
[2018-11-12] MEDS: NICODERM PATCH TD SCH (08:40)
[2018-11-12] MEDS: NEXIUM IV SCH ×2 (08:54→21:11)
[2018-11-12] MEDS: MAXIPIME 2 GM in NS 100 ML IV SCH ×2 (08:55→21:11)
--- NOTE | 2018-11-12 10:01 | GENERAL SURGERY PROGRESS NOTE ---
DATE: 11/12/2018 His blood pressure is 165/100, heart rate 98. His temp was 101.7 degrees. His base deficit is 2. No change in his physical exam. CT scan does not show significant change in his infarct. I have no new recommendations today. cc: Alexis Phillips MD
[2018-11-12 10:55] LABS: HEMATOCRIT 39.7 % (42.0-52.0); HEMOGLOBIN 13.3 g/dL (14.0-18.0); MCH 30.2 PG (27-31); MCHC 33.5 g/dL (33-37); MCV 90.2 FL (81-99); MPV 11.1 FL (7.4-10.4); RBC 4.4 XMIL (4.7-6.1); RDW 14.7 % (11.5-14.5); WBC 8.36 X1000 (4.8-10.8)
[2018-11-12] MEDS: DUONEB (A & A) INH SCH ×4 (11:39→23:18)
--- NOTE | 2018-11-12 13:03 | GASTROENTEROLOGY PROGRESS NOTE ---
DATE: 11/12/2018 SUBJECTIVE: The patient remains on mechanical ventilation. He has family at the bedside. Per family's report, he did have some movement and followed some commands during his sedation vacation. He is back on sedation because of some agitation. OBJECTIVE: Vital Signs: Temperature 100.9 degrees, pulse 102, respirations 25, blood pressure 154/113. General: The patient is intubated, on mechanical ventilation. He is sedated. LABORATORY DATA: Hematology: WBC 8.36, hemoglobin 13.3, hematocrit 39.7, MCV 90.2. Coagulation: PTT 31.6. Chemistry: Sodium 142, potassium 3.6, chloride 109, CO2 of 19, BUN 14, creatinine 1.0, glucose 247. ASSESSMENT AND PLAN: 1. Recent right-sided infarct. 2. Right carotid thrombus. 3. Respiratory failure, on mechanical ventilation. 4. Gastrointestinal bleed with blood-tinged contents from his nasogastric tube. So far, there has been no further evidence of active gastrointestinal bleeding. Hemoglobin and hematocrit are stable. We will continue to follow. Further plans will be made as needed. I have discussed this case with Dr. Gracia. Dictated by DEZ Henriquez for Griffin Gracia MD cc: DEZ Anderson MD
--- NOTE | 2018-11-12 13:44 | Diag Imaging Result Doc PS360 ---
EXAM: CT HEAD W/O CONTRAST 11/12/2018 HISTORY: Repeat CT TECHNIQUE: This exam was performed using automated exposure control, adjustment of mA or kV according to patient size, and/or use of iterative reconstruction technique. COMMENT: The small area of petechial hemorrhage which was noted in the medial portion of the ischemic defect in the right hemisphere has diminished slightly in size since the previous study of 11/11/2018. There continues to be cytotoxic edema throughout much of the distribution of the right middle cerebral territory. There is decreased attenuation in the right caudate head which was also present at the time the previous study. There is still no appreciable shift of midline structures. IMPRESSION: Subacute infarction in the distribution of the right middle cerebral artery with additional chronic encephalomalacic changes. Slight diminishment in small petechial hemorrhage. Electronically signed by Pranay White 11/12/2018 1:42 PM
--- NOTE | 2018-11-12 14:39 | PULMONOLOGY PROGRESS NOTE ---
DATE: 11/12/2018 SUBJECTIVE: The patient is sedated. He does not follow commands. He has mild increased work of breathing. He is having ongoing fevers. OBJECTIVE: Vital Signs: Maximum temperature in the last 24 hours 102.4 degrees, BP 135/90, heart rate 101, respiratory rate 17, oxygen saturation 100%. HEENT: Pupils are equal. Oropharynx appears dry. Neck is supple. Chest reveals coarse rhonchi bilaterally with decreased breath sounds at the right base. Cardiac: S1, S2 with an increased rate. Abdomen is soft. Extremities are slightly cool to the touch. DIAGNOSTIC STUDIES: CT scan of the brain reveals subacute infarction in the right middle cerebral artery with decreasing small petechial hemorrhage noted yesterday. Chest x-ray reveals increased atelectasis versus pneumonia at the right lung base. Sodium 142, potassium 3.6, chloride 109, bicarbonate 19, BUN 14, creatinine 1.0, total protein 5.3, albumin 1.6, glucose 247, phosphorus 2.16, magnesium 1.6. Arterial blood gas: PH 7.48, pCO2 of 27, pO2 of 150 (patient overbreathing the ventilator). White blood count 8.36, hemoglobin 13.3, platelet count 160,000. IMPRESSION: A 53-year-old with: 1. Acute hypoxemic respiratory failure. 2. Acute stroke with blood clot identified in the carotid bulb. 3. Pneumonia. 4. Poorly controlled diabetes mellitus with hemoglobin A1c measured at 17. 5. Ongoing tobacco use. 6. Peripheral vascular disease. 7. Protein-calorie malnutrition. RECOMMENDATIONS: 1. Anticipate restarting heparin per the hospitalist service. 2. Continue ventilatory support. 3. Add Mucomyst and bronchodilators with new-onset atelectasis. 4. Continue current fluid regimen. 5. Albumin to help with oncotic pressure. 6. Initiate tube feeds. 7. Overall prognosis is guarded. TIME SPENT IN CRITICAL CARE MANAGEMENT: 30+ minutes. cc: Mane Roca MD
--- NOTE | 2018-11-12 14:55 | Diag Imaging Result Doc PS360 ---
EXAM: CHEST-PORTABLE 11/12/2018 HISTORY: NG tube placement TECHNIQUE: AP portable at 1445 COMMENT: There is an NG tube coiled in the fundus of the stomach. The endotracheal tube is slightly below the thoracic inlet. There are some distended gas containing small bowel loops in the upper abdomen. IMPRESSION: NG tube in the stomach. Electronically signed by Pranay White 11/12/2018 2:52 PM
[2018-11-12] MEDS: ALBUMIN 25% IV SCH ×2 (15:18→21:11)
--- NOTE | 2018-11-12 15:58 | PROGRESS NOTE ---
DATE: 11/12/2018 SUBJECTIVE: Mr. Davis really with no change. No movement of his left arm and leg. Still on the ventilator. Plan was to get another CT today. OBJECTIVE: His temperature was 100.9 degrees. He is still spiking temperature up to 101, almost up to 102. DIAGNOSTIC DATA: Chest x-ray. NG tube in place. There is some distended gas-containing small bowel loops in the upper abdomen. ASSESSMENT AND PLAN: 1. Acute hypoxemic respiratory failure and acute stroke. 2. Acute stroke of blood clot in the right carotid. We have stopped the anticoagulant. There was a little bit of petechiae in the follow-up CT scan. Repeat CT scan today. Subacute infarction distribution of right middle cerebral artery with additional chronic encephalomalacia changes, slightly diminished small petechial hemorrhage from yesterday. We are going to continue present support. Trying to keep his blood pressure above 140 systolic to help with perfusion. I am going to hold the heparin because of the small petechial hemorrhage on the CT scan. I do not see much change neurologically. Looking over his orders, I do not see any change. May start some TPN soon trying to keep his blood sugars up as well, and they have come up nicely. They were running a little low, but now they are up above 150 almost always. cc: Jorge Patel MD
[2018-11-12] MEDS: MUCOMYST 20% INH SCH ×2 (16:40→19:04)
[2018-11-13] MEDS: HUMULIN R SUBQ SCH ×6 (00:01→19:57)
[2018-11-13] MEDS: NEO-SYNEPHRINE 50 MG in NS 250 ML IV SCH ×7 (01:09→20:02)
[2018-11-13] MEDS: VANCOMYCIN 2,000 MG in NS 500 ML IV SCH ×2 (01:09→18:14)
[2018-11-13] MEDS: DUONEB (A & A) INH SCH ×6 (03:18→23:23)
[2018-11-13] MEDS: ALBUMIN 25% IV SCH (03:31)
[2018-11-13] MEDS: DIPRIVAN 1% 1,000 MG/100 ML BOTTLE IV SCH ×6 (04:18→20:02)
[2018-11-13 04:31] LABS: ALLEN TEST YES; BE -3.9 mmoll (-3.0-3.0); BLOOD TYPE ARTERIAL; HCO3-(ACT) 21.9 mmoll (20.0-26.0); METHB 0.8 % (0.0-1.5); O2HB 96.4 % (95.0-99.0); PCO2(98.6) 31 mmHg (35-45); PO2(98.6) 124 mmHg (60-100); SAMPLE BLOOD; SAO2 98.1 % (95.0-100.0); SRATE 16 BPM; THB 14.6 g/dL (11.5-17.4); TVOL 650 mL; pH(98.6) 7.41 (7.35-7.45)
[2018-11-13 04:33] LABS: MODALITY VENTILATOR
[2018-11-13] MEDS: HEPARIN 25,000 UNITS/D5W 25,000 UNIT/250 ML IV.SOLN IV SCH (05:18)
[2018-11-13 06:01] LABS: MAGNESIUM 1.8 mg/dL (1.5-2.7); PHOSPHORUS 2.7 mg/dL (2.7-4.5)
[2018-11-13 06:07] LABS: AGAP 16; ALB/GLOB RATIO 0.7; ALBUMIN 2.5 g/dL (3.5-5.0); ALKALINE PHOSPHATASE 80 U/L (32-122); BUN 14 mg/dL (8-22); CALCIUM 8.1 mg/dL (8.8-10.2); CHLORIDE 107 mmol/L (98-107); COSMO 288; ESTIMATED GFR > 60; GLUCOSE 177 mg/dL (70-104); GOT 33 U/L (10-34); GPT 14 U/L (10-44); POTASSIUM 3.1 mmol/L (3.5-5.1); SODIUM 142 mmol/L (136-145); TCO2 19 mmol/L (25-35); TOTAL BILIRUBIN 0.82 mg/dL (0.20-1.00); TOTAL PROTEIN 6.1 g/dL (6.3-8.3)
--- NOTE | 2018-11-13 06:14 | Diag Imaging Result Doc PS360 ---
EXAM: KUB ABDOMEN HISTORY: diminished BS, not tolerating TF TECHNIQUE: Abdomen single view COMPARISON: 11/10/2018 FINDINGS: There are distended loops of bowel. These are more pronounced than on the prior study. Prominent stool within the colon. No organomegaly. Prior surgery to the lower lumbar spine. IMPRESSION: Constipation and bowel obstruction. Electronically signed by Wilian Tolbert 11/13/2018 6:12 AM
[2018-11-13 06:57] LABS: HEMATOCRIT 36.5 % (42.0-52.0); HEMOGLOBIN 12.7 g/dL (14.0-18.0); MCHC 34.8 g/dL (33-37); MCV 86.1 FL (81-99); MPV 10.9 FL (7.4-10.4); RBC 4.24 XMIL (4.7-6.1); RDW 14.4 % (11.5-14.5); WBC 6.18 X1000 (4.8-10.8)
--- NOTE | 2018-11-13 07:52 | Diag Imaging Result Doc PS360 ---
EXAM: CHEST-PORTABLE HISTORY: respiratory failure TECHNIQUE: Portable chest single view COMPARISON: 11/12/2018 FINDINGS: No change in the endotracheal or nasogastric tubes. The lungs are poorly expanded. No cardiomegaly. No pulmonary edema. Atelectasis or infiltrates in the right lung base. IMPRESSION: Stable exam. Electronically signed by Wilian Tolbert 11/13/2018 6:21 AM
[2018-11-13] MEDS: MAXIPIME 2 GM in NS 100 ML IV SCH ×2 (08:09→19:57)
[2018-11-13] MEDS: NEXIUM IV SCH ×2 (08:09→20:10)
[2018-11-13] MEDS: NICODERM PATCH TD SCH (08:09)
[2018-11-13] MEDS: MUCOMYST 20% INH SCH ×2 (08:18→19:24)
--- NOTE | 2018-11-13 09:25 | PROGRESS NOTE ---
DATE: 11/13/2018 SUBJECTIVE: Mr. Davis has not had significant clinical regional climate change analyst the weekend. By report, with propofol held, he becomes restless, moves the right limbs spontaneously and purposefully, pulls the tubes, and requires resumption of sedation. He has not been noticed to use left limbs. He has required pressors to maintain adequate blood pressure. There is evidence of likely acute clot in the right internal carotid artery and recent right hemisphere infarction. He was started on heparin over the weekend. Repeat CT showed tiny petechial change in the medial aspect of the acute right hemisphere infarction. Heparin was stopped at that point. Follow-up noncontrast CT scan yesterday shows no further evidence of bleeding. PHYSICAL EXAMINATION: On exam now, Mr. Davis is intubated, mechanically ventilated, sedated. With noxious stimulation over the right foot, there was some withdrawal. He did not withdraw the left foot. There was occasional tremulousness in the left arm, but no clonic activity. There is lateral eye movement with passive head turning. Pupils react briefly to bright light, a little bit more consistent on the left than the right at this time. Neck remains supple without meningismus. IMPRESSION: Clinically stable, presumed left hemiplegia, likely left hemianopia, imaging evidence of large acute right hemisphere infarction with question of pre-existing right hemisphere encephalomalacia. There is evidence of stenosis in the right internal carotid artery with concern for mobile clot. Brief course of heparin was associated with evidence of very small hemorrhage at the periphery of the infarction. I do not have any urgent suggestion. I would continue maintaining blood pressures as you are doing. I suspect he will have a little if any residual right hemisphere function, so aggressive anticoagulation may not improve outcome. I do not think we have to fully anticoagulate him, raising risk of converting stable infarction into hematoma which could result in greater degree of impairment. We can examine him more thoroughly, clinically and possibly with MRI, after he is extubated. No urgent suggestions. Thanks for asking Neurology to see Mr. Davis. cc: MD MERCEDES Patton III
--- NOTE | 2018-11-13 10:28 | PROGRESS NOTE ---
DATE: 11/13/2018 SUBJECTIVE: Mr. Davis is still on the ventilator. He is unresponsive. He is not moving the left side, left arm or left leg. Pupils appear to be equal. They appear reactive. OBJECTIVE: Vital Signs: Temperature 97.8 degrees, pulse 94, respirations 17, blood pressure 180/106. HEENT: Pupils are equal and round. Lungs: Clear in all lung helm. Cardiovascular: Regular rhythm and rate without murmur or S3. Urine output is 2500 mL. IMAGING AND LABORATORY DATA: Blood sugar 137, 167. Chest x-ray from this morning: No change in endotracheal tube or nasogastric tube. Lungs are poorly expanded. No cardiomegaly. No pulmonary edema, atelectasis, or infiltrate of the right lung base. Abdominal x-ray: Constipation and bowel obstruction suspected. ASSESSMENT AND PLAN: 1. Acute hypoxemic respiratory failure in the face of acute right hemisphere stroke. 2. Cerebrovascular accident, right carotid thrombosis. I had given him almost 24 hours of heparin, but concerned that CT scan showed a little bit of petechiae or petechial bleed, so I have stopped the heparin. Trying to keep blood pressures systolic above 150, requiring a pressor. 3. Not tolerating the tube feeding very well. REVIEW OF ORDERS: Patient on Nexium 40 mg IV every 12 hours, getting a bicarb drip at 100 mL every hour, on cefepime 2 grams IV every 12 hours, nicotine patch 21 mg daily. He is on a Diprivan drip and vancomycin 2 grams IV every 18 hours, treating for potential aspiration pneumonia and potential sepsis. I think the main event has been a right-sided hemisphere event in the distribution of the right middle cerebral artery, with thrombosis seen on carotid Doppler. There is flow on that right side. We wanted to try and give him heparin, but concerned about turning this into a hemorrhagic event. Concerned about his left-sided deficit, so continue present measures. Family aware of serious situation. cc: Jorge Patel MD
[2018-11-13] MEDS: SODIUM BICARBONATE 8.4% 100 MEQ in D5W 1,000 ML IV SCH ×3 (13:23→23:06)
--- NOTE | 2018-11-13 14:22 | GENERAL SURGERY PROGRESS NOTE ---
DATE: 11/13/2018 Mr. Davis appears to spontaneously move his right arm and right leg but not his left arm and left leg. CT findings are noted. He is now off heparin. I have no further new recommendations. cc: Alexis Phillips MD
--- NOTE | 2018-11-13 16:00 | PULMONOLOGY PROGRESS NOTE ---
DATE: 11/13/2018 SUBJECTIVE: The patient remains on sedation. He is having periodic fevers and is on a cooling blanket. He is shivering. OBJECTIVE: Vital Signs: The patient has a minute ventilation approaching 18 L. Blood pressure 169/102, heart rate 98, respiratory rate 16, oxygen saturation 99%. HEENT: Pupils are equal but sluggish. Oropharynx appears clear. Neck: Supple. Chest: Reveals occasional rhonchi but relatively clear. Cardiac: S1-S2. Abdomen: Soft. Diminished bowel sounds. LABORATORY DATA: Sodium 142, potassium 3.1, chloride 107, bicarbonate 19, BUN 14, creatinine 1.0, anion gap 16, glucose 177. White blood count 6.18, hemoglobin 12.7, platelet 191,000. Arterial blood gas reveals pH 7.41, PCO2 of 31, PO2 124 with a lactate of 3.4. No new culture data. IMPRESSION: 53-year-old with: 1. Acute hypoxemic respiratory failure. 2. Large right acute stroke. 3. Pneumonia. 4. Poorly controlled diabetes mellitus. 5. Peripheral vascular disease. 6. Ongoing tobacco use. 7. Protein calorie malnutrition. DISCUSSION: This is a 53-year-old with problems outlined above. It is difficult to wean to excessive minute ventilation. Hopefully with correction of his hyperchloremia and fevers, the ability to wean will significantly improve. RECOMMENDATION: 1. Continue ventilatory support at current level. 2. Continue antibiotics. 3. Continue glucose control. 4. Daily vent weaning. CRITICAL CARE TIME: Time spent in critical care, thirty-plus minutes. cc: Mane Roca MD
[2018-11-13] MEDS ORDERED: DULCOLAX PR ONE (16:26)
[2018-11-13] MEDS ORDERED: GLYCERIN ADULT PR ONE (16:26)
[2018-11-13] MEDS: SODIUM CHLORIDE 0.9% INJ SCH (20:10)
[2018-11-14] MEDS: NEO-SYNEPHRINE 50 MG in NS 250 ML IV SCH ×7 (00:28→21:17)
[2018-11-14] MEDS: HUMULIN R SUBQ SCH ×7 (01:10→23:55)
[2018-11-14] MEDS: DIPRIVAN 1% 1,000 MG/100 ML BOTTLE IV SCH ×6 (02:04→22:40)
[2018-11-14] MEDS: HEPARIN 25,000 UNITS/D5W 25,000 UNIT/250 ML IV.SOLN IV SCH (02:04)
[2018-11-14] MEDS: DUONEB (A & A) INH SCH ×6 (03:34→23:25)
[2018-11-14 04:26] LABS: ALLEN TEST YES; BE 1.5 mmoll (-3.0-3.0); BLOOD TYPE ARTERIAL; HCO3-(ACT) 26.1 mmoll (20.0-26.0); METHB 0.7 % (0.0-1.5); O2(CT) 17.1 mL/dL (15.0-23.0); O2HB 95.5 % (95.0-99.0); PCO2(98.6) 33 mmHg (35-45); PO2(98.6) 88 mmHg (60-100); SAMPLE BLOOD; SRATE 13 BPM; THB 12.7 g/dL (11.5-17.4); TVOL 650 mL; pH(98.6) 7.48 (7.35-7.45)
[2018-11-14 04:27] LABS: MODALITY VENTILATOR
[2018-11-14 06:17] LABS: HEMATOCRIT 35.1 % (42.0-52.0); HEMOGLOBIN 12.1 g/dL (14.0-18.0); MCH 30.2 PG (27-31); MCHC 34.5 g/dL (33-37); MCV 87.5 FL (81-99); MPV 11.3 FL (7.4-10.4); RBC 4.01 XMIL (4.7-6.1); RDW 14.3 % (11.5-14.5); WBC 10.96 X1000 (4.8-10.8)
[2018-11-14 06:26] LABS: AGAP 14; ALB/GLOB RATIO 0.5; ALBUMIN 1.9 g/dL (3.5-5.0); ALKALINE PHOSPHATASE 97 U/L (32-122); BUN 16 mg/dL (8-22); CALCIUM 8.5 mg/dL (8.8-10.2); CHLORIDE 110 mmol/L (98-107); COSMO 295; CREATININE 0.9 mg/dL (0.7-1.2); ESTIMATED GFR > 60; GLUCOSE 122 mg/dL (70-104); GOT 30 U/L (10-34); GPT 14 U/L (10-44); POTASSIUM 2.8 mmol/L (3.5-5.1); SODIUM 147 mmol/L (136-145); TCO2 23 mmol/L (25-35); TOTAL BILIRUBIN 0.61 mg/dL (0.20-1.00); TOTAL PROTEIN 5.6 g/dL (6.3-8.3)
--- NOTE | 2018-11-14 07:05 | Diag Imaging Result Doc PS360 ---
EXAM: CHEST-PORTABLE 11/14/2018 HISTORY: respiratory failure TECHNIQUE: AP portable at 0529 COMMENT: Compared to 11/13/2018 there has been definite increase in interstitial opacity bilaterally. The right hemidiaphragm is now partially obscured. There may be pleural fluid on the right as well. There is an endotracheal tube with its tip at the thoracic inlet and an NG tube which passes below the diaphragm into the stomach. IMPRESSION: Worsened pulmonary edema. Electronically signed by Pranay White 11/14/2018 7:03 AM
[2018-11-14] MEDS: SODIUM BICARBONATE 8.4% 100 MEQ in D5W 1,000 ML IV SCH ×2 (07:50→18:11)
[2018-11-14] MEDS: MAXIPIME 2 GM in NS 100 ML IV SCH ×2 (08:19→20:07)
[2018-11-14] MEDS: NEXIUM IV SCH ×2 (08:19→20:04)
[2018-11-14] MEDS: NICODERM PATCH TD SCH (08:19)
[2018-11-14] MEDS: MUCOMYST 20% INH SCH ×2 (08:38→19:37)
--- NOTE | 2018-11-14 08:42 | PROGRESS NOTE ---
DATE: 11/14/2018 Mr. Davis looks about the same clinically. He continues sedated. There is limited horizontal eye movement with passive head turning. 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 He moves his right arm purposefully. He did not move the left limbs. There is better withdrawal with the right foot than the left. I do not have any new suggestion from Neurology standpoint. Will continue to follow. cc: MD MERCEDES Patton III
--- NOTE | 2018-11-14 09:22 | PROGRESS NOTE ---
DATE: 11/14/2018 INTERVAL HISTORY: Apparently, he had a vomiting episode the day before yesterday, and his nasogastric tube feeds were held. He is breathing well on 30% FiO2. He does have electrolyte abnormality, which is being corrected. SUBJECTIVE: He is intubated, on propofol. OBJECTIVE: Vital Signs: Temperature of 97.6 degrees, pulse 98, respiratory rate 23, blood pressure 169/99, he is saturating 92% on 30% FiO2. General: The patient has nasogastric tube, endotracheal tube, urine catheter. HEENT: Oral cavity is moist. Lungs: Air entry bilaterally equal. No wheeze, rhonchi, crackles. Cardiovascular: S1, S2 normal. Tachycardic. No murmur, rub, or gallop. Abdomen: Soft, slightly distended with tympanic percussion. Active bowel sounds. Extremities: No lower extremity edema. Neurologic: He is on propofol. He is moving his right upper and lower extremities spontaneously. He does have hypertonia of the left upper extremity. He is not moving the left upper and lower extremity to painful stimuli today. His Babinski has plantar flexion bilaterally. LABORATORY DATA: Significant for hypernatremia, hyperchloremia, and hypokalemia, which are being repleted. MICROBIOLOGY: No positive data. IMAGING: Chest x-ray this morning suggests worsened pulmonary edema. ASSESSMENT AND PLAN: 1. Acute hypoxic respiratory failure due to suspected right-sided lower lobe aspiration pneumonia and large right middle cerebral artery territory stroke. Continue intravenous vancomycin and intravenous cefepime. Today is day 4. My plan is to stop antibiotics based on course in a total of 5 to 7 days. Continue mechanical ventilation as per Pulmonology recommendation with albuterol/ipratropium nebulization and propofol for sedation. 2. Right middle cerebral artery acute stroke with right carotid bulb thrombus with flow into the internal carotid artery, status post intravenous heparin drip, which was stopped because of potential hemorrhages around his infarction. General Surgery and Neurology on board. Continue intravenous phenylephrine to maintain systolic blood pressure of more than 150 mmHg. I will start him on high-intensity statin once we are able to use his nasogastric tube. I will appreciate Neurology recommendation about starting aspirin in the future. 3. History of insulin-dependent diabetes mellitus with noncompliance; cocaine abuse; essential hypertension; diabetic gastroparesis are stable. I will continue him on proton pump inhibitors for blood in the nasogastric tube on presentation, and will initiate deep venous thrombosis prophylaxis in the future as tolerated. Currently, I will keep him on sequential compression devices. 4. Disposition. More than 30 minutes of critical care time was spent in taking care of this patient. Plan of care was discussed with the nursing team. cc: Richard Holloway MD
[2018-11-14] MEDS: POTASSIUM CHLORIDE 20 MEQ/SWI 20 MEQ/100 ML IVPB IV SCH ×2 (09:37→11:16)
[2018-11-14] MEDS ORDERED: NS 250 ML ONE (09:37)
[2018-11-14 09:58] LABS: INR 1.03; PROTIME 14.4 Seconds (11.0-16.0)
[2018-11-14] MEDS: VANCOMYCIN 2,000 MG in NS 500 ML IV SCH (12:33)
[2018-11-14] MEDS: ALBUMIN 25% IV SCH ×2 (14:24→20:05)
[2018-11-14] MEDS: LASIX IV SCH (15:35)
--- NOTE | 2018-11-14 17:37 | GASTROENTEROLOGY PROGRESS NOTE ---
DATE: 11/14/2018 SUBJECTIVE: Patient is intubated on mechanical ventilation. He is on sedation. Per nurse report, he does arouse to stimulus. He gets agitated, requiring sedation. OBJECTIVE: Vital Signs: Temperature 98 degrees, pulse 84, respirations 16, blood pressure 157/87. General: Patient is sedated on mechanical ventilation. LABORATORY: Hematology 10.96, hemoglobin 12.1, hematocrit 35.1. Chemistry, sodium 147, potassium 2.8, chloride 110, CO2 23, BUN 16 creatinine 0.9, glucose 122, calcium 8.5, phosphorus 2.7, magnesium 1.8. ASSESSMENT AND PLAN: 1. Respiratory failure on mechanical ventilation. 2. Aspiration pneumonia. On antibiotics. 3. Right cerebral stroke and right carotid thrombus on anticoagulation. 4. Electrolyte imbalance. 5. Constipation. PLAN: Continue current medications. Recommend correction of his electrolyte imbalance which can be causing his constipation. Patient received a Dulcolax and glycerin suppository yesterday with no reported results. We may need to repeat dose. If patient is able to tolerate medication down his NG tube, could also try milk of magnesia. Further plans on laxatives will be made accordingly. I have discussed this case with Dr. Gracia. Dictated by DEZ Henriquez for Griffin Gracia MD cc: DEZ Anderson MD [facility]
[2018-11-14] MEDS: SODIUM CHLORIDE 0.9% INJ SCH (20:04)
[2018-11-14] MEDS: LIPITOR PO SCH (20:05)
--- NOTE | 2018-11-14 20:50 | PULMONOLOGY PROGRESS NOTE ---
DATE: 11/14/2018 SUBJECTIVE: The patient becomes agitated with any weaning of sedation. He remains on vasopressors to maintain systolic blood pressure greater than 150. He remains fluid positive for the last several days. OBJECTIVE: Vital Signs: Blood pressure 158/99, heart rate 96, respiratory rate 19, oxygen saturation 96%. HEENT: Pupils are equal. Oropharynx appears clear. Neck: Is supple. Chest: Reveals diminished breath sounds bilaterally with scattered rhonchi. Cardiac exam: S1, S2. Abdomen: Is soft with diminished bowel sounds. Extremities: Reveal increasing peripheral edema. LABORATORIES: Arterial blood gas reveals a pH 7.48, pCO2 of 33, PO2 of 88. White blood count 10.96, hemoglobin 12.1, platelet count 145,000. Sodium 147, potassium 2.8, chloride 110, bicarbonate 23, BUN 16, creatinine 0.9, albumin 1.9. Chest x-ray reveals increasing pleural effusion and pulmonary edema. IMPRESSION: A 53-year-old with 1. Large right hemispheric stroke. 2. Acute hypoxemic respiratory failure. 3. Pneumonia and pleural effusion. 4. Poorly controlled diabetes mellitus. 5. Protein-calorie malnutrition. 6. Peripheral vascular disease. 7. Ongoing tobacco use. PLAN: 1. We will decrease parameters for Ronnie-Synephrine to keep systolic blood pressure greater than 140. 2. Attempt to mobilize fluid with albumin and diuretics. 3. Continue glucose control. 4. Daily vent weaning. 5. Prognosis is guarded given altered mental status associated with stroke. Time spent in critical care management: 30+ minutes cc: Mane Roca MD MTDFreddie
[2018-11-15] MEDS: NEO-SYNEPHRINE 50 MG in NS 250 ML IV SCH ×5 (01:36→23:06)
[2018-11-15] MEDS: LASIX IV SCH ×3 (01:40→14:04)
[2018-11-15] MEDS: ALBUMIN 25% IV SCH (01:40)
[2018-11-15] MEDS: DIPRIVAN 1% 1,000 MG/100 ML BOTTLE IV SCH ×4 (03:14→17:03)
[2018-11-15] MEDS: DUONEB (A & A) INH SCH ×6 (03:22→23:59)
[2018-11-15] MEDS: HUMULIN R SUBQ SCH ×5 (04:41→20:48)
[2018-11-15 04:44] LABS: BLOOD TYPE ARTERIAL; SAMPLE BLOOD
[2018-11-15 04:45] LABS: ALLEN TEST YES; BE 5.8 mmoll (-3.0-3.0); HCO3-(ACT) 29.4 mmoll (20.0-26.0); METHB 0.6 % (0.0-1.5); MODALITY VENTILATOR; O2(CT) 15.8 mL/dL (15.0-23.0); PCO2(98.6) 40 mmHg (35-45); PO2(98.6) 80 mmHg (60-100); SRATE 16 BPM; THB 11.8 g/dL (11.5-17.4); TVOL 650 mL; pH(98.6) 7.48 (7.35-7.45)
[2018-11-15 06:20] LABS: HEMATOCRIT 30.9 % (42.0-52.0); HEMOGLOBIN 10.5 g/dL (14.0-18.0); MCH 30.2 PG (27-31); MCV 88.8 FL (81-99); MPV 11.8 FL (7.4-10.4); RBC 3.48 XMIL (4.7-6.1); RDW 14.7 % (11.5-14.5); WBC 16.16 X1000 (4.8-10.8)
[2018-11-15] MEDS: VANCOMYCIN 2,000 MG in NS 500 ML IV SCH (06:38)
[2018-11-15 06:49] LABS: AGAP 15; ALB/GLOB RATIO 0.9; ALBUMIN 2.9 g/dL (3.5-5.0); ALKALINE PHOSPHATASE 95 U/L (32-122); BUN 20 mg/dL (8-22); CHLORIDE 104 mmol/L (98-107); COSMO 296; CREATININE 1.1 mg/dL (0.7-1.2); ESTIMATED GFR > 60; GLUCOSE 115 mg/dL (70-104); GOT 23 U/L (10-34); GPT 12 U/L (10-44); TCO2 28 mmol/L (25-35); TOTAL BILIRUBIN 1.09 mg/dL (0.20-1.00); TOTAL PROTEIN 6.2 g/dL (6.3-8.3)
[2018-11-15 06:50] LABS: SODIUM 147 mmol/L (136-145)
[2018-11-15 06:51] LABS: POTASSIUM 2.3 mmol/L (3.5-5.1)
[2018-11-15] MEDS: MUCOMYST 20% INH SCH ×2 (07:24→20:25)
--- NOTE | 2018-11-15 07:33 | Diag Imaging Result Doc PS360 ---
EXAM: CHEST-PORTABLE HISTORY: respiratory failure TECHNIQUE: Portable chest single view COMPARISON: 11/14/2018 FINDINGS: No change in the nasogastric and endotracheal tubes. The lungs are poorly expanded. Small to moderate-sized right pleural effusion. There are bilateral infiltrates. No cardiomegaly. The overall appearance is similar to the prior exam. IMPRESSION: No interval improvement. Electronically signed by Wilian Tolbert 11/15/2018 7:31 AM
[2018-11-15] MEDS ORDERED: SODIUM BICARBONATE 8.4% 100 MEQ in D5W 1,000 ML IV SCH (08:05)
[2018-11-15] MEDS: SODIUM CHLORIDE 0.9% INJ SCH (08:11)
[2018-11-15] MEDS: POTASSIUM CHLORIDE 20 MEQ/SWI 20 MEQ/100 ML IVPB IV SCH ×6 (08:11→23:06)
[2018-11-15] MEDS: MAXIPIME 2 GM in NS 100 ML IV SCH ×2 (08:11→20:50)
[2018-11-15] MEDS: NEXIUM IV SCH ×2 (08:11→20:48)
[2018-11-15] MEDS: POTASSIUM CHLORIDE 20% LIQUID NG SCH ×2 (08:11→09:59)
--- NOTE | 2018-11-15 09:06 | PROGRESS NOTE ---
DATE: 11/15/2018 Mr. Davis continues intubated, mechanically ventilated, sedated. As I approached the bedside, his propofol dose had been held for just a few minutes. There was no significant change clinically. There was slight withdrawal of the right leg with noxious stimulation. He used his right arm minimally. He did not open eyes. There is slight lateral eye movement with passive head turning. I did not see left limb movement. By report, during prior sedation vacation, there was right limb movement, but not left limb movement. I do not have any new suggestion from Neurology standpoint. Okay to start daily aspirin for antiplatelet effect. Further plans will depend on his clinical course. Thanks for asking Neurology to see Mr. Davis. cc: MD MERCEDES Patton III
[2018-11-15] MEDS: MIRALAX NG SCH ×2 (09:59→20:49)
[2018-11-15] MEDS: DULCOLAX PR SCH ×2 (09:59→20:49)
[2018-11-15] MEDS: ASPIRIN NG SCH (09:59)
--- NOTE | 2018-11-15 10:29 | PROGRESS NOTE ---
DATE: 11/15/2018 INTERVAL HISTORY: He did not have any more fever episodes. His FiO2 was increased to 40% because of his hypoxia. He has leukocytosis and severe hypokalemia and thrombocytopenia as well. SUBJECTIVE: He is intubated, not responding to verbal commands. He is still on phenylephrine. VITAL SIGNS: Temperature 98.6 degrees, pulse 92, respiratory rate 17, blood pressure 135/81. He is saturating 92% on mechanical ventilation. PHYSICAL EXAMINATION: [place]: He has NG tube, endotracheal tube, urine catheter and a PICC line. HEENT: Oral cavity is moist. Lungs: Air entry bilaterally equal. No wheeze, rhonchi, crackles except infraaxillary crackles bilaterally. Cardiovascular: S1, S2 normal. Regular. Tachycardic. No murmur, rub, or gallop. Abdomen: Distended with tympanic to percussion. Soft. No bowel sounds. Extremities: No lower extremity edema. Neurologic: His pupils are bilateral briskly reacting. He is moving all his extremities, in fact, flickering to painful stimuli. His Babinski reflex is bilateral plantar flexion. Input and output suggests -600 mL so far today. LABORATORY DATA: Suggestive of leukocytosis, normocytic anemia, thrombocytopenia. He does have severe hypokalemia, hypernatremia, normal kidney function, and mild lactic acidosis. MICROBIOLOGY: No positive data. IMAGING: Chest x-ray today morning suggested no interval improvement in right- sided pleural effusion. He does have bilateral infiltrate. No cardiomegaly. ASSESSMENT AND PLAN: 1. Acute hypoxic respiratory failure due to right-sided lower lobe aspiration pneumonia and right- sided pleural effusion in the setting of right middle cerebral artery territory stroke. Continue intravenous vancomycin and intravenous cefepime. Day 1 of antibiotics was 11/10/2018. Continue mechanical ventilation. He has been becoming tachypneic on spontaneous breathing trial. Continue albuterol ipratropium nebulization and propofol for sedation. 2. Right middle cerebral artery acute stroke with right carotid bulb thrombus with patent flow in right internal carotid artery, status post intravenous heparin drip which was stopped because of development of potential hemorrhages in john-infarct region. Continue intravenous phenylephrine to maintain systolic blood pressure more than 140 mmHg, high- intensity statin and start aspirin through nasogastric tube. 3. Abdominal distention and persistent lactic acidosis. He could not tolerate nasogastric tube in the past because of vomiting and has not had a bowel movement. I will get CT scan of the abdomen and pelvis to rule out intestinal obstruction. Currently, his severe hypokalemia could also be contributing to possible ileus, which I will replete today. 4. History of insulin-dependent diabetes mellitus with noncompliance; cocaine abuse; essential hypertension; diabetic gastroparesis, stable. I will continue him on D5 drip considering his hypoglycemia and not being able to tolerate nasogastric tube. Continue pneumatic compression devices for DVT prophylaxis. Hold his home Eliquis which he was supposedly taking for h/o DVTs. 5. Disposition. Patient's condition is critical. TIME SPENT: More than 30 minutes of critical care time was spent in taking care of this patient. I called the patient's 2 sisters, left a voice messages and talked with 1 sister on the phone, explained to her about patient's stable, but critical condition, failure of spontaneous breathing trial and need for continuous ICU monitoring. All of their questions have been satisfactorily answered. More than 30 minutes were spent in taking care of this patient. cc: Richard Holloway MD MTDD
[2018-11-15] MEDS: D5W 1,000 ML IV SCH (11:32)
[2018-11-15] MEDS: CUBICIN 500 MG in NS 100 ML IV SCH (12:40)
--- NOTE | 2018-11-15 15:23 | Diag Imaging Result Doc PS360 ---
EXAM: CT ABD/PELVIS W/ORAL CONT ONLY 11/15/2018 HISTORY: Evaluate for Intestinal obstruction TECHNIQUE: This exam was performed using automated exposure control, adjustment of mA or kV according to patient size, and/or use of iterative reconstruction technique. COMMENT: There are bilateral pleural effusions. There is atelectasis and/or pneumonia in both lower lobes particularly the right lower lobe. This was not present on 11/09/2018. There is vicarious excretion of contrast by the gallbladder. There is a small amount of free intra-abdominal gas which is seen anterior to the left lobe of the liver and also anteriorly around image 81 on both sides. There is a large subcapsular fluid collection lateral to the liver measuring at least 20.7 cm in anterior posterior dimension and 4.4 cm in thickness. It has a CT density of over 20 Hounsfield units and may represent a subcapsular hematoma. There is no evidence of nephrolithiasis or hydronephrosis. The spleen is not enlarged. There is less dense free fluid in the rectovesical pouch measuring less than 6 Hounsfield units. There is extensive pneumatosis intestinalis involving small bowel loops as well as the sigmoid colon and ascending colon. There is inhomogeneity in the peritoneal and retroperitoneal fat particularly over the area of the omentum. This was not the case previously. There is generalized anasarca. There is a Paredes catheter in the bladder. The adrenal glands are not enlarged. The spleen is not enlarged. There may also be a left subphrenic fluid collection. There are postsurgical changes in the lower lumbar spine. There is no evidence of acute bony abnormality. IMPRESSION: 1. Bilateral pleural effusions and lower lobe pneumonia versus atelectasis, worse on the right than the left. 2. Pneumoperitoneum with pneumatosis intestinalis as described above and probable peritonitis. Minimal ascites. 3. Large subcapsular hepatic fluid collection which may represent a hematoma. 4. Anasarca and not previously present. The findings were discussed with Richard Holloway MD at 11/15/2018 3:20 PM. Electronically signed by Pranay White 11/15/2018 3:21 PM
[2018-11-15] MEDS ORDERED: ALBUMIN 25% ONE (17:28)
--- NOTE | 2018-11-15 18:08 | GENERAL SURGERY PROGRESS NOTE ---
DATE: 11/15/2018 I was called by Dr. Holloway today about a CT scan on Mr. Davis. It was ordered because of his abdominal distention and seeming ileus. The CT shows a subcapsular hematoma of the liver, free fluid within the abdominal cavity, some free air, excessive pneumatosis intestinalis involving the small bowel and the sigmoid and ascending colon. This is consistent with possible bowel infarction and peritonitis. Because of Mr. Davis' unconsciousness and sedation, we really cannot evaluate his abdomen appropriately. He did present with abdominal pain. I have discussed this with his sister. I have recommend a laparotomy to see if, in fact, he has bowel infarction, and if so, to remove the diseased bowel. If we can, he might require a colostomy. I have discussed this with her. She understands and agrees for us to proceed. cc: Alexis Phillips MD
--- NOTE | 2018-11-15 18:24 | PULMONOLOGY PROGRESS NOTE ---
DATE: 11/15/2018 SUBJECTIVE: The patient has been off sedation. He attempts to open his eyes. He will not follow commands. He is not moving his left eye. OBJECTIVE: Vital Signs: The patient has been afebrile for the last 24 hours. Blood pressure 149/90, heart rate 95, respiratory rate 28 to 40, oxygen saturation 95%. HEENT: Pupils are equal and reactive. Oropharynx appears dry, but clear. Neck: Supple. Chest: Diminished breath sounds, right greater than left base. Cardiac: Increased rate, regular rhythm. Abdomen: Soft. Extremities: 1+ peripheral edema. LABORATORIES: Chest x-ray reveals small to moderate right-sided effusion. White blood count 16.16, hemoglobin 10.5, platelet count 120,000. Arterial blood gas: PH 7.48, pCO2 of 40, pO2 80, with a lactate of 2.4. Sodium 147, potassium 2.3, chloride 104, bicarbonate 28, BUN 20, creatinine 1.1. IMPRESSION: A 53-year-old with: 1. Acute hypoxemic respiratory failure. 2. Large right hemispheric stroke. 3. Pneumonia and pleural effusion. 4. Poorly controlled diabetes mellitus. 5. Protein-calorie malnutrition. 6. Peripheral vascular disease. 7. Tobacco use at the time of admission. DISCUSSION: 53-year-old with problems outlined above. The patient had a stroke 5 days ago. He has had some marginal improvement in his overall hemodynamic status. PLAN: 1. Decrease blood pressure parameters. Keep systolic blood pressure greater than 130. 2. Continue spontaneous breathing trial to evaluate for extubation. 3. Attempt diuresis. 4. Overall prognosis is guarded. Time spent in critical care management: 30+ minutes cc: Mane Roca MD [facility]
[2018-11-15] MEDS ORDERED: VERSED ONE ×2 (18:32→19:07)
[2018-11-15] MEDS ORDERED: NORCURON ONE ×2 (18:39→19:38)
--- NOTE | 2018-11-15 20:04 | PROGRESS NOTE ---
DATE: 11/15/2018 INTERVAL HISTORY: I got a CT scan of the abdomen and pelvis on Mr. Davis to rule out intestinal obstruction, considering no bowel movements, abdominal distention, and abdominal x-ray finding of previous, and it did not get better despite repletion of potassium. I was called by the radiologist and I was informed that he likely has small bowel infarction with pneumatosis intestinalis and free abdominal air. I immediately called the surgeon doctor and informed him about these findings. Apparently, he is currently in another surgery, so he would come by and evaluate the patient and decide about likely surgery later today. I went to the bedside and met the patient's sister, who is the next of kin. I discussed with her about patient's clinical condition. I also informed her about CT scan abdomen finding and the fact that he likely has perforation, and would require laparotomy which is a big abdominal surgery. I also discussed with her about the patient's critical condition and the critical nature of current abdominal findings as well. She would like to learn more about this and likely proceed with the surgery accordingly. They are waiting for surgeon doctors to come by and talk with them. Meanwhile, I will continue him on current bicarbonate drip. I am repeating another potassium on him. It is unclear at the moment what could have caused his intestinal infarction. His blood culture did not have any growth. He has been a cocaine user which can cause vasospasm and intestinal infarction possibly.. Unsure if there is intravenous or just the smoking. Plan of care discussed with nursing team. cc: Richard Holloway MD MTDFreddie
[2018-11-15] MEDS: LIPITOR PO SCH (20:48)
--- NOTE | 2018-11-15 22:05 | GASTROENTEROLOGY PROGRESS NOTE ---
DATE: 11/15/2018 SUBJECTIVE: At the time of my evaluation, patient was being cleaned up by nurses. They report no bowel movement after suppositories. Patient does have reorder for Dulcolax suppository and MiraLAX to be started by nasogastric tube. He also has an order for CT scan. Per input/output documentation, he had 180 mL out from his NG tube. OBJECTIVE: Temperature 99.9 degrees, pulse 89, respirations 16, blood pressure 138/92. The patient is intubated on mechanical ventilation. He was being cleaned up at the time of my evaluation. LABORATORY: Hematology: WBC 16.16, hemoglobin 10.5, hematocrit 30.9. Chemistry: Sodium 147, potassium 2.3, chloride 104, CO2 28, BUN 20, creatinine 1.1, calcium 9. ASSESSMENT AND PLAN: 1. Respiratory failure, on mechanical ventilation. 2. Pneumonia with right pleural effusion. Patient is receiving antibiotics. 3. Right middle cerebral artery stroke with right carotid thrombus. I believe his heparin had to be stopped. 4. Abdominal distention/ileus. Feedings had to be discontinued due to aspiration. He has being given suppositories over the last several days with no results. CT scan has been ordered and is pending. The patient also has repeat order for Dulcolax and to start MiraLax. Will continue to follow. 5. Electrolyte imbalance. Patient receiving supplementation. Again, GI will continue to follow along with this. 6. Further plans will be made according to his progress. I have discussed this case with Dr. Gracia. Dictated by DEZ Henriquez for Griffin Gracia MD cc: DEZ Anderson MD
[2018-11-16] MEDS: D5W 1,000 ML IV SCH ×2 (00:20→13:45)
[2018-11-16] MEDS: DIPRIVAN 1% 1,000 MG/100 ML BOTTLE IV SCH ×6 (00:29→23:00)
[2018-11-16] MEDS: HUMULIN R SUBQ SCH ×6 (01:35→21:01)
[2018-11-16] MEDS: DUONEB (A & A) INH SCH ×6 (03:44→23:22)
[2018-11-16] MEDS: NEO-SYNEPHRINE 50 MG in NS 250 ML IV SCH (04:21)
[2018-11-16 04:35] LABS: ALLEN TEST YES; BLOOD TYPE ARTERIAL; METHB 1.1 % (0.0-1.5); O2(CT) 17.2 mL/dL (15.0-23.0); O2HB 96.1 % (95.0-99.0); PCO2(98.6) 36 mmHg (35-45); PO2(98.6) 164 mmHg (60-100); SAMPLE BLOOD; SAO2 97.4 % (95.0-100.0); SRATE 16 BPM; THB 12.5 g/dL (11.5-17.4); TVOL 650 mL; pH(98.6) 7.49 (7.35-7.45)
[2018-11-16 04:36] LABS: MODALITY VENTILATOR
[2018-11-16 05:46] LABS: HEMATOCRIT 29.8 % (42.0-52.0); MCH 29.9 PG (27-31); MCHC 33.6 g/dL (33-37); MCV 89.2 FL (81-99); MPV 12.5 FL (7.4-10.4); RBC 3.34 XMIL (4.7-6.1); WBC 18.88 X1000 (4.8-10.8)
[2018-11-16 06:01] LABS: AGAP 15; ALB/GLOB RATIO 0.6; ALBUMIN 1.9 g/dL (3.5-5.0); ALKALINE PHOSPHATASE 111 U/L (32-122); BUN 22 mg/dL (8-22); CALCIUM 8.2 mg/dL (8.8-10.2); CHLORIDE 106 mmol/L (98-107); COSMO 301; CREATININE 1.2 mg/dL (0.7-1.2); ESTIMATED GFR > 60; GLUCOSE 222 mg/dL (70-104); GOT 44 U/L (10-34); GPT 18 U/L (10-44); POTASSIUM 2.9 mmol/L (3.5-5.1); SODIUM 146 mmol/L (136-145); TCO2 25 mmol/L (25-35); TOTAL BILIRUBIN 1.07 mg/dL (0.20-1.00)
--- NOTE | 2018-11-16 06:36 | Diag Imaging Result Doc PS360 ---
EXAM: CHEST-PORTABLE HISTORY: respiratory failure TECHNIQUE: Portable chest single view COMPARISON: 11/15/2018 FINDINGS: No change in the endotracheal tube, right-sided PICC line, or nasogastric tube. Slightly improvement in the lung aeration. Decreased infiltrates on the right. Small right pleural effusion remains. No cardiomegaly. Mild pulmonary edema. IMPRESSION: Interval improvement. Electronically signed by Wilian Tolbert 11/16/2018 6:33 AM
[2018-11-16] MEDS: POTASSIUM CHLORIDE 20 MEQ/SWI 20 MEQ/100 ML IVPB IV SCH ×2 (07:22→08:45)
[2018-11-16] MEDS: MAGNESIUM SULFATE 2 GM/S.W.I. 2 GM/50 ML IVPB IV SCH ×2 (07:22→10:12)
[2018-11-16] MEDS: MAXIPIME 2 GM in NS 100 ML IV SCH ×2 (07:52→21:02)
--- NOTE | 2018-11-16 07:53 | OPERATIVE NOTE ---
PROCEDURE DATE: 11/15/2018 NAME OF PROCEDURE: 1. Exploratory laparotomy, resection of the majority of the jejunum, the ileum and the right colon. 2. Construction of an end jejunostomy and mucous fistula. SURGEON: Alexis Phillips MD. ASSISTANTS: Joan and Renée. PREOPERATIVE DIAGNOSIS: Suspected bowel infarction with pneumatosis. POSTOPERATIVE DIAGNOSIS: Infarction of the jejunum, ilium and right colon. DESCRIPTION OF PROCEDURE: Satisfactory general endotracheal anesthesia was achieved. The abdomen was prepped and draped in a sterile fashion. A midline incision was made. Incision was carried through the subcutaneous tissue. Through the midline fascia, entering the abdominal cavity. Upon entering the abdominal cavity, we entered a large amount of ascitic fluid that had a foul smell. We exposed the bowel and there was a very large amount of infarcted small bowel and colon. We evacuated all the contaminated fluid and then exposed the bowel. We identified the ligament of Treitz and there was a portion of proximal jejunum that was viable. We chose a spot 45 cm of the ligament of Treitz and divided the bowel with a LEXIE blue cartridge 80 mm long. We then scored the peritoneum and proceeded to mobilize the right colon out of the retroperitoneum. The viability of the colon appeared to occur in the proximal transverse colon, the mid transverse colon near the middle colic vessels. There was a pulse within the middle colic vessels. After scoring the peritoneum, we then used the LigaSure to divide the mesentery of the jejunum, ilium and the right colon. We cleaned off the transverse colon just proximal to the middle colic vessels and transected the colon there with a LXEIE blue cartridge 80 mm long. This then allowed us to completely resect the jejunum, ilium and right colon. We handed it off. We then copiously irrigated the abdominal cavity. There were some patchy areas of exudate on the transverse and distal colon, but I think the colon was viable, there were just patches of contaminated exudate on it. After copiously irrigating the abdominal cavity, we then decided to bring the jejunum out as an end jejunostomy to continued to inspect the viability of the jejunum, and then bring out the transverse colon as a mucous fistula to evaluate the mucosal integrity of the distal bowel as well. The plans were to, if the patient survives, then to come back and do a jejunal to colonic anastomosis at some point. We decided to bring the jejunum out in the left lower quadrant. We grasped the fascia with a Shauna, grasped the skin with a Shauna, made a small round incision in the skin, then dissected the fascia, incised the anterior rectus sheath, spread the rectus muscle, divided the posterior rectus sheath to the point that we could admit 3 fingers. We then delivered the jejunum through this stoma. It rested easily. We secured it at the fascia level with 3-0 Polysorbs. We then did the same thing for the transverse colon, bringing it out to the right of the midline and securing it at the fascia level as well. We then proceeded to close the peritoneum with a 2-0 chromic. We closed the fascia with the running #2 Prolene. We irrigated out the subcutaneous tissue copiously, and then closed the skin with joanna. We then obtained flanges for both the stomas, placed them on the skin and then opened both stomas. We everted the mucosa in a Gwen type jejunostomy on the left side, and simply secured the mucosa to the skin edges where the colon was coming on the right. Sterile dressing was placed on the midline wound. Bags were placed over the stomas. He tolerated the procedure satisfactorily and was sent back to his room in stable condition. cc: Alexis Phillips MD
[2018-11-16] MEDS: MUCOMYST 20% INH SCH ×2 (08:12→19:43)
[2018-11-16] MEDS: NEXIUM IV SCH ×2 (08:45→21:02)
[2018-11-16] MEDS: SODIUM CHLORIDE 0.9% INJ SCH (08:45)
[2018-11-16] MEDS: ALBUMIN 25% IV SCH ×3 (08:45→21:01)
[2018-11-16] MEDS: ASPIRIN NG SCH (09:17)
[2018-11-16] MEDS ORDERED: D5W 500 ML IV SCH (09:45)
[2018-11-16] MEDS: LASIX IV SCH (10:12)
--- NOTE | 2018-11-16 10:20 | PROGRESS NOTE ---
DATE: 11/16/2018 INTERVAL HISTORY: Yesterday CT scan of the abdomen and pelvis had detected intestinal infarction, perforation and pneumatosis intestinalis for which he underwent laparotomy. The detailed surgery note is pending. However, I have been informed that he underwent laparotomy and infarcted bowels were taken out. He also had 2 ostomy on his abdomen. He had fever of 100.2 overnight. No other events. SUBJECTIVE: He is intubated and sedated. VITALS: Temperature of 100.2 degrees, pulse 94, respiratory rate 16, blood pressure 128/79. He is saturating 100% on ventilator. PHYSICAL EXAMINATION: He has endotracheal tube, nasogastric tube, urine catheter. He also has a PICC line in his right upper extremity. Air entry bilaterally equal. No wheeze, rhonchi. He does have mild infra-axillary crackles bilaterally. S1, S2 normal. Regular. Tachycardic. No murmur, rub, or gallop. Abdomen has 2 ostomy, soft. No bowel sounds. No lower extremity edema. His pupils are bilaterally equal reacting to light. He is moving right upper and lower extremity to painful stimuli. He is just flickering left upper and lower extremity. LABS: Suggestive of leukocytosis, normocytic anemia, thrombocytopenia. ABG in acceptable range. He continues to have hypokalemia and elevated creatinine. Microbiology shows no data. ASSESSMENT AND PLAN: 1. Acute hypoxic respiratory failure due to right lower lobe pneumonia and right-sided pleural effusion in the setting of right middle cerebral artery territory stroke. Continue intravenous vancomycin and cefepime. Day 1 of antibiotics is November 10. Continue mechanical ventilation. Propofol sedation as per pulmonology recommendation; I will put albuterol ipratropium nebulization. 2. Pneumatosis intestinalis, peritonitis and pneumoperitoneum, likely in the setting of intestinal infarction and perforation status post laparotomy, removal of infarcted bowel and ostomy. Possible contributors could have been intravenous cocaine induced vasospasm. I will also discuss with neurology and pulmonology and consider discontinuing phenylephrine which could potentially contribute to vasospasm. 3. 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 Continue aspirin and high density statin. I will discuss with neurology and pulmonology about discontinuing phenylephrine. 4. History of insulin-dependent diabetes mellitus with noncompliance; cocaine abuse; essential hypertension; diabetic gastroparesis are currently stable. Continue him on D5 drip considering he is not going to be able to eat by mouth. I will discuss with surgery about starting him on parenteral nutrition. Continue pneumatic compression devices for DVT prophylaxis. Continue proton pump inhibitors IV b.i.d. for coffee-grounds emesis at the time of presentation. DISPOSITION: Patient's condition is critical. More than 30 minutes of critical care time has been spent in taking care of him. Yesterday I had discussed his critical care critical condition with his sister and had answered all of her questions. Unfortunately, he has accruing more and more medical problems since hospital admission and his prognosis is guarded. cc: Richard Holloway MD MTDD
[2018-11-16] MEDS: VANCOMYCIN 2,000 MG in NS 500 ML IV SCH (12:10)
--- NOTE | 2018-11-16 12:41 | PROGRESS NOTE ---
DATE: 11/16/2018 LOCATION: ICU bed 9. SUBJECTIVE: Mr. Davis had surgical management of ischemic bowel yesterday. He has had sedation vacation off propofol and continued to move right limbs, but not left. During vacation, he has not been alert, attentive, or communicative. OBJECTIVE: On exam now, with propofol on board, he remains unresponsive. He moved his right arm a little bit. There is slight withdrawal of the right foot. There is slight lateral eye movement with passive head turning. No new thoughts or new suggestions from Neurology today. Thank you for asking me to see Mr. Davis. cc: MD MERCEDES Patton III
[2018-11-16] MEDS ORDERED: [UNRECOGNIZED DRUG - OTHER] IV SCH ×7 (15:00)
[2018-11-16] MEDS ORDERED: POTASSIUM PHOSPHATE IV SCH ×7 (15:00)
[2018-11-16] MEDS ORDERED: D10W 1,000 ML IV PRN (15:00)
[2018-11-16] MEDS ORDERED: TPN ELECTROLYTES IV SCH ×7 (15:00)
[2018-11-16] MEDS ORDERED: MAGNESIUM SULFATE IV SCH ×7 (15:00)
--- NOTE | 2018-11-16 15:16 | GENERAL SURGERY PROGRESS NOTE ---
DATE: 11/16/2018 Temperature is 99.7 degrees, heart rate is 91, blood pressure 121/67. Both stomas are viable. White count this morning is 19,000, hemoglobin 10 hematocrit 30. Gas exchange is satisfactory on the ventilator. Potassium is 2.9, BUN 22, creatinine 1.2. Plan is continue supportive care. It is perfectly okay with me for him to begin TPN. cc: Alexis Phillips MD
[2018-11-16] MEDS: LIPITOR PO SCH (21:02)
--- NOTE | 2018-11-16 22:21 | PULMONOLOGY PROGRESS NOTE ---
DATE: 11/16/2018 SUBJECTIVE: Interim history is reviewed. The patient underwent small bowel resection for ischemic bowel. He remains on vasopressor, but the dose has actually decreased over the last 24 hours. OBJECTIVE: The patient moves spontaneously on the right, but not the left. Vital Signs: Blood pressure 147/75, heart rate 88, respiratory rate 16, oxygen saturation 99%. HEENT: Pupils are equal and reactive, but sluggish to light. Oropharynx appears clear. Neck: Supple. Chest: Reveals decreased breath sounds at right base. Cardiac: S1, S2. Increased rate. Abdomen: Soft with postsurgical dressings in place. Extremities: Reveal +1 peripheral edema. LABORATORIES: Chest x-ray reveals slight decrease in infiltrates/effusion on the right. White blood count 18,000, hemoglobin 10.0, platelet count 102,000. Sodium 146, potassium 2.9, chloride 106, bicarbonate 25, BUN 22, creatinine 1.2, albumin 1.9. Arterial blood gas: PH 7.49, pCO2 36 pO2 of 164, with the first normal lactate in the last 5 days. IMPRESSION: A 53-year-old with: 1. Acute hypoxemic respiratory failure. 2. Large right hemispheric stroke. 3. Bowel infarction, status post resection. Patient presented with abdominal pain and it is suspected that this was a delayed perforation related to ischemia. 4. Cocaine use. 5. Peripheral vascular disease. 6. Tobacco use at the time of admission. DISCUSSION: A 53-year-old with problems outlined above. The patient's hemodynamic status has actually improved following surgery, and a component of his vasopressor requirements may have been related to the inflammatory changes in the abdomen. PLAN: 1. Replace albumin. 2. Attempt to diurese. 3. Daily spontaneous breathing trials. He failed one this morning. 4. Continue antibiotics. 5. Guarded prognosis. TIME SPENT IN CRITICAL CARE MANAGEMENT: 30+ minutes. cc: Mane Roca MD
[2018-11-17] MEDS: HUMULIN R SUBQ SCH ×6 (00:30→20:51)
[2018-11-17] MEDS: LASIX IV SCH (00:31)
[2018-11-17] MEDS: DUONEB (A & A) INH SCH ×6 (03:35→23:22)
[2018-11-17] MEDS: D5W 1,000 ML IV SCH (04:47)
[2018-11-17 04:53] LABS: ALLEN TEST YES; BE 12.8 mmoll (-3.0-3.0); BLOOD TYPE ARTERIAL; HCO3-(ACT) 34.9 mmoll (20.0-26.0); METHB 0.5 % (0.0-1.5); O2(CT) 11.7 mL/dL (15.0-23.0); O2HB 96.7 % (95.0-99.0); PCO2(98.6) 34 mmHg (35-45); PO2(98.6) 92 mmHg (60-100); SAMPLE BLOOD; SAO2 99.5 % (95.0-100.0); SRATE 16 BPM; THB 8.5 g/dL (11.5-17.4); TVOL 650 mL
[2018-11-17 04:54] LABS: MODALITY VENTILATOR; pH(98.6) 7.62 (7.35-7.45)
[2018-11-17 06:03] LABS: HEMATOCRIT 26.8 % (42.0-52.0); HEMOGLOBIN 9.1 g/dL (14.0-18.0); MCH 30.3 PG (27-31); MCV 89.3 FL (81-99); MPV 12.9 FL (7.4-10.4); RDW 14.6 % (11.5-14.5); WBC 11.79 X1000 (4.8-10.8)
[2018-11-17 06:35] LABS: MAGNESIUM 2.1 mg/dL (1.5-2.7); PHOSPHORUS 3.6 mg/dL (2.7-4.5); PREALBUMIN 3.5 mg/dL (20-40)
--- NOTE | 2018-11-17 07:04 | Diag Imaging Result Doc PS360 ---
EXAM: CHEST-PORTABLE 11/17/2018 HISTORY: respiratory failure TECHNIQUE: AP portable at 0525 COMMENT: There is an endotracheal tube with its tip at thoracic inlet and an NG tube which passes below the diaphragm. The atelectasis in the right middle lobe and lower lobe has improved slightly but there is still opacity obscuring the hemidiaphragm on the right. Otherwise are has been no significant change since 11/16/2018. IMPRESSION: Slightly improved right basilar atelectasis. Electronically signed by Pranay White 11/17/2018 7:02 AM
[2018-11-17 07:09] LABS: AGAP 18; ALB/GLOB RATIO 0.8; ALBUMIN 2.6 g/dL (3.5-5.0); ALKALINE PHOSPHATASE 97 U/L (32-122); BUN 22 mg/dL (8-22); CALCIUM 8.6 mg/dL (8.8-10.2); CHLORIDE 97 mmol/L (98-107); COSMO 299; CREATININE 1.1 mg/dL (0.7-1.2); ESTIMATED GFR > 60; GLUCOSE 284 mg/dL (70-104); GOT 21 U/L (10-34); GPT 12 U/L (10-44); SODIUM 143 mmol/L (136-145); TCO2 28 mmol/L (25-35); TOTAL BILIRUBIN 1.75 mg/dL (0.20-1.00); TOTAL PROTEIN 5.7 g/dL (6.3-8.3)
[2018-11-17 07:12] LABS: POTASSIUM 2.2 mmol/L (3.5-5.1)
[2018-11-17] MEDS: DIPRIVAN 1% 1,000 MG/100 ML BOTTLE IV SCH ×3 (07:53→19:53)
[2018-11-17] MEDS: POTASSIUM CHLORIDE 20 MEQ/SWI 20 MEQ/100 ML IVPB IV SCH ×6 (07:56→20:49)
[2018-11-17] MEDS: MUCOMYST 20% INH SCH ×2 (08:26→19:29)
[2018-11-17] MEDS: ASPIRIN NG SCH (08:57)
[2018-11-17] MEDS: MAXIPIME 2 GM in NS 100 ML IV SCH ×2 (08:58→20:48)
[2018-11-17] MEDS: NEO-SYNEPHRINE 50 MG in NS 250 ML IV SCH ×2 (09:39→21:53)
[2018-11-17] MEDS: TYLENOL PR PRN (11:02)
[2018-11-17] MEDS: VANCOMYCIN 2,000 MG in NS 500 ML IV SCH (11:55)
[2018-11-17 12:31] LABS: ALLEN TEST YES; BE 12.5 mmoll (-3.0-3.0); BLOOD TYPE ARTERIAL; HCO3-(ACT) 34.7 mmoll (20.0-26.0); METHB 0.5 % (0.0-1.5); O2(CT) 12.9 mL/dL (15.0-23.0); O2HB 96.1 % (95.0-99.0); PCO2(98.6) 45 mmHg (35-45); PO2(98.6) 95 mmHg (60-100); SAMPLE BLOOD; SAO2 97.6 % (95.0-100.0); THB 9.4 g/dL (11.5-17.4); pH(98.6) 7.52 (7.35-7.45)
[2018-11-17 12:32] LABS: MODALITY VENTILATOR
[2018-11-17] MEDS: MORPHINE IV PRN (14:52)
[2018-11-17] MEDS ORDERED: TPN ELECTROLYTES 20 ML, MAGNESIUM SULFATE 5 MEQ, POTASSIUM PHOSPHATE 15 MMOL, M.V.I.-12... IV SCH ×8 (15:00)
[2018-11-17] MEDS ORDERED: QUELICIN ONE (15:42)
--- NOTE | 2018-11-17 16:17 | PROGRESS NOTE ---
DATE: 11/17/2018 HOSPITAL COURSE Summary: In brief he had originally presented to [facility] ER for abdominal pain and was discharged. However, in few hours, he presented to [facility] with persistent abdominal pain and was extremely agitated in the emergency room and was in restraints and was noticed to be not moving his left upper extremity and lower extremity well and was found to have right internal carotid artery thrombus associated right cerebral hemisphere stroke. He was intubated. He was started on heparin drip for carotid thrombus which was stopped eventually since he developed periinfact hemorrhage. CT scan of the abdomen and pelvis was performed to evaluate his persistent ileus, abdominal distention, which had detected intestinal infarction which required laparotomy on November 15. It was possible that he had infarction when he had presented to [facility] ER which was just not detectable on earlier CT scan done at [facility] on 11/09/18. INTERVAL HISTORY: No acute events overnight. He continues to have hypokalemia. I have stopped his D5 water. He did have an episode of fever yesterday where his temperature was 100.2 degrees, His platelets are decreasing and he has developed mixed metabolic and respiratory alkalosis and hyperglycemia. SUBJECTIVE: He is intubated. He does have spontaneous movement of his right upper extremity, though. VITALS: Currently temperature of 99.3 degrees, pulse of 86, respiratory rate 13, blood pressure 139/76. He is saturating 100% on 30% FiO2. PHYSICAL EXAMINATION: General: Does not appear in any acute distress. HEENT: Pupils are bilaterally equal reacting to light. He is currently on propofol sedation. Lungs: Air entry bilaterally equal. No wheeze or rhonchi. He does have decreased air entry and some crackles on the right inframammary region. Cardiovascular: S1, S2 normal regular no murmur, rub or gallop. Abdomen: Soft. He has 2 ostomy, 1 in right quadrant area, another 1 in the left lower quadrant without much output. Extremities: He does not have any lower extremity edema. Neurologic: He is sedated on propofol. He has spontaneous right upper extremity movement. He does have significant movement to painful stimuli right upper and right lower extremity and slightly decreased movement of the left upper extremity where he flickers. He does not have any movement of the left lower extremity. LABS: Suggestive of leukocytosis, normocytic anemia, thrombocytopenia. He does have mixed metabolic and respiratory alkalosis, severe hypokalemia and hyperglycemia.Microbiology: No positive data. IMAGING: Suggestive of persistent right lower lobe infiltrate or atelectasis. ASSESSMENT AND PLAN: 1. Acute hypoxic respiratory failure and sepsis due to right lower lobe pneumonia and right-sided pleural effusion with residual atelectasis. Continue intravenous vancomycin and cefepime, day 1 of antibiotics was November 10. I will await resolution of leukocytosis before making a decision about discontinuation of antibiotics. Continue mechanical ventilation and spontaneous breathing trial. As per Pulmonology recommendation. He is on propofol for sedation. 2. Pneumatosis intestinalis, peritonitis with pneumoperitoneum and intestinal infarction and perforation status post laparotomy, removal off majority of jejunum, ileum and right colon and status post ostomy x2. Continue total parenteral nutrition and nasogastric tube under suction. It is possible he had early intestinal ischemia of probably cocaine induced vasospasm which was not detected on earlier CT scan. 3. 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 Continue aspirin, high-dose statin, and phenylephrine to keep systolic blood pressure more than 120 as per Neurology and pulmonology recommendations. 4. History of insulin-dependent diabetes mellitus with non compliance. Prior admissions for multiple diabetic ketoacidosis episodes, currently in acceptable range. 5. Others. He does have history of active cocaine abuse; essential hypertension; diabetic gastroparesis, which are currently stable. 6. Mixed metabolic and respiratory alkalosis. I will appreciate pulmonology recommendations about ventilator settings changes. He has also been receiving diuresis and initially was on bicarbonate drip which could have contributed to it. Follow up with serial ABG. 7. Disposition patient's condition is critical. TIME SPENT: More than 30 minutes of critical care time was spent in taking care of him. I called patient's 2nd sister informed her about patient's clinical course and answered all of her questions. cc: MD MERCEDES Brennan
--- NOTE | 2018-11-17 16:40 | Diag Imaging Result Doc PS360 ---
EXAM: CHEST-PORTABLE INDICATION: re-intubation TECHNIQUE: One view COMPARISON: 11/17/2018 FINDINGS: The NG tube projects well below the diaphragm in the expected position. The ET tube projects over the trachea and above the filemon at about the T4 level. The right PICC line is in stable position. The right pleural effusion with adjacent atelectasis and/or infiltrate is approximately stable. No new consolidation is identified. Cardiac silhouette is stable. IMPRESSION: ET tube and NG tube in expected position as described. Essentially stable chest, otherwise. Electronically signed by Isak Oquendo 11/17/2018 4:38 PM
--- NOTE | 2018-11-17 19:03 | GENERAL SURGERY PROGRESS NOTE ---
DATE: 11/17/2018 SUBJECTIVE: Mr. Davis is now 2 days after his laparotomy with extensive small bowel and colon resection. OBJECTIVE: His temperature is 99.3 degrees. His heart rate is 94, blood pressure 106/59. He is still on a ventilator and failed weaning trial yesterday. His intake 4864, output 8250. NG tube put out 1150. His jejunostomy stoma looks healthy. His colon stoma looks healthy as well. LABORATORY: Today, reveals the white count is down to 12,000, hemoglobin 9.1, hematocrit 26. His pH is up to 7.62, pCO2 of 34, PO2 of 92. Lactate is down to 1.8. Potassium is down to 2.2. Carbon oxide is up to 28. His glucose is in the mid 200s. Total bilirubin up to 1.75. Albumin 2.6. Triglycerides are up. He is receiving TPN and he is on propofol. ASSESSMENT/PLAN: Mr. Davis appears stable with a fall in his white count. He continues to be hemiplegic on the left apparently. He failed his weaning trial yesterday. He is now on TPN. I would simply continue supportive care with nourishment and we will see if he is able to come off the ventilator. [facility] is to cover the weekend. His potassium is being replaced. cc: Alexis Phillips MD
--- NOTE | 2018-11-17 20:05 | PROGRESS NOTE ---
DATE: 11/17/2018 Mr. Davis has been extubated. At the time of my exam, he appears to be awake, moving right arm spontaneously and at least semi purposefully. He has a slight right gaze. He did not communicate with me. He did not follow commands, speak or seem to attempt speech. He turned his head from right to midline but not to the left. He spontaneously moved eyes from right gaze to midline but not into left gaze. Passive head turning shows full lateral eye movement. Left limbs are flaccid. There is withdrawal of the left right foot but not the left. Neck is supple. IMPRESSION: Persistent left hemiplegia, presumed left hemianopia, likely left- sided sensory deficit, all attributed to large right middle cerebral artery territory infarction which was acute on presentation. Reason for infarction is likely multiple and vasospasm related to cocaine may be a factor. There is question of underlying previous nondominant right hemisphere encephalomalacia and I do not have an explanation or history for that. I do not have any new suggestion. I would continue current management, follow clinically, consider EEG later if he does not become more attentive and communicative. Thanks for asking Neurology to see Mr. Davis. cc: Evaristo Keene III, MD [facility] HOSPITALFreddie
[2018-11-17] MEDS: SODIUM CHLORIDE 0.9% INJ SCH (20:49)
[2018-11-17] MEDS: PEPCID IV SCH (20:50)
[2018-11-17] MEDS: LIPITOR PO SCH (20:50)
[2018-11-18] MEDS: HUMULIN R SUBQ SCH ×6 (00:43→20:51)
[2018-11-18] MEDS: TYLENOL PR PRN ×3 (00:43→20:51)
[2018-11-18] MEDS: DIPRIVAN 1% 1,000 MG/100 ML BOTTLE IV SCH ×4 (02:02→20:52)
[2018-11-18] MEDS: DUONEB (A & A) INH SCH ×6 (03:44→23:14)
[2018-11-18 04:36] LABS: ALLEN TEST YES; BE 8.9 mmoll (-3.0-3.0); BLOOD TYPE ARTERIAL; HCO3-(ACT) 31.8 mmoll (20.0-26.0); METHB 0.7 % (0.0-1.5); O2(CT) 13.6 mL/dL (15.0-23.0); O2HB 95.2 % (95.0-99.0); PCO2(98.6) 41 mmHg (35-45); PO2(98.6) 86 mmHg (60-100); SAMPLE BLOOD; SAO2 98.7 % (95.0-100.0); SRATE 10 BPM; THB 10.1 g/dL (11.5-17.4); TVOL 650 mL; pH(98.6) 7.51 (7.35-7.45)
[2018-11-18 04:38] LABS: MODALITY VENTILATOR
[2018-11-18] MEDS: NEO-SYNEPHRINE 50 MG in NS 250 ML IV SCH ×3 (05:47→20:52)
[2018-11-18 06:19] LABS: HEMATOCRIT 26.5 % (42.0-52.0); HEMOGLOBIN 8.7 g/dL (14.0-18.0); MCH 29.6 PG (27-31); MCHC 32.8 g/dL (33-37); MCV 90.1 FL (81-99); MPV 13.1 FL (7.4-10.4); RBC 2.94 XMIL (4.7-6.1); RDW 14.9 % (11.5-14.5); WBC 19.53 X1000 (4.8-10.8)
[2018-11-18 06:45] LABS: AGAP 12; ALB/GLOB RATIO 0.6; ALBUMIN 2.2 g/dL (3.5-5.0); ALKALINE PHOSPHATASE 90 U/L (32-122); BUN 26 mg/dL (8-22); CALCIUM 8.4 mg/dL (8.8-10.2); CHLORIDE 105 mmol/L (98-107); COSMO 300; CREATININE 1.3 mg/dL (0.7-1.2); ESTIMATED GFR > 60; GLUCOSE 209 mg/dL (70-104); GOT 22 U/L (10-34); GPT 10 U/L (10-44); MAGNESIUM 2.2 mg/dL (1.5-2.7); PHOSPHORUS 3.1 mg/dL (2.7-4.5); POTASSIUM 3.3 mmol/L (3.5-5.1); SODIUM 145 mmol/L (136-145); TCO2 28 mmol/L (25-35); TOTAL PROTEIN 5.7 g/dL (6.3-8.3)
[2018-11-18] MEDS: MUCOMYST 20% INH SCH ×2 (07:45→19:18)
--- NOTE | 2018-11-18 08:15 | Diag Imaging Result Doc PS360 ---
EXAM: CHEST-PORTABLE INDICATION: respiratory failure TECHNIQUE: One view COMPARISON: 11/17/2018 FINDINGS: Support tubes and lines are in stable positions. Dense opacity at the right lung base suggesting atelectasis and infiltrate is again noted. There is also now increasing opacity throughout the remainder of the right lung as well as the left lung base suggesting worsening of the infiltrate. The right pleural effusion is grossly stable. No other new consolidation is identified. Cardiac silhouette is stable. IMPRESSION: Interval worsening as described. Electronically signed by Isak Oquendo 11/18/2018 8:13 AM
[2018-11-18] MEDS: ASPIRIN NG SCH (08:55)
[2018-11-18] MEDS: PEPCID IV SCH ×2 (08:55→20:50)
[2018-11-18] MEDS: MAXIPIME 2 GM in NS 100 ML IV SCH ×2 (08:56→20:50)
--- NOTE | 2018-11-18 09:39 | PULMONOLOGY PROGRESS NOTE ---
DATE: 11/17/2018 INTERIM HISTORY: The patient was evaluated earlier this morning. He was placed on a breathing trial, which he passed. His mental status continues to remain marginal. The patient was extubated and was followed for approximately 3 hours. His oxygen requirements increased and he was failing BiPAP. The patient was subsequently reintubated (see separate dictation for the intubation procedure). OBJECTIVE: Vital Signs: Maximum temperature in the last 24 hours 101.8 degrees. Blood pressure 147/70, heart rate 102, respiratory rate 34, oxygen saturation 98%. HEENT: Pupils are equal. Oropharynx appears clear. Neck: Supple. Chest: Reveals coarse rhonchi bilaterally. Cardiovascular: S1, S2. Abdomen: Soft. Extremities: Without edema. He has limited movement on the right side but none on the left. DIAGNOSTIC DATA: Chest x-ray post intubation reveals good endotracheal tube placement. Arterial blood gas following his spontaneous breathing trial revealed pH 7.52, pCO2 of 45, PO2 of 95. White blood count 11.79, hemoglobin 9.1, platelet count 97,000. Chemistry: Sodium 143, potassium 2.2, chloride 97, bicarbonate 28, BUN 22, creatinine 1.1, glucose 284. IMPRESSION: A 53-year-old with: 1. Acute hypoxemic respiratory failure. 2. Large right hemispheric stroke. 3. Bowel infarction, status post resection. 4. Status post failed extubation attempt. 5. Peripheral vascular disease. 6. Cocaine use and tobacco use at the time of admission. DISCUSSION: A 53-year-old with problems outlined above. His mental status remains poor. He has failed an attempt at extubation. With his current neurological status and generalized weakness, I believe he will require a tracheostomy to help manage his airway secretions. PLAN: 1. Re-intubation of (this is been completed). 2. Continue TPN. 3. Discussed tracheostomy placement with Dr. Alexis Phillips. 4. Continue antibiotics. 5. I discussed the case with his family after the re-intubation. All other questions were answered. CRITICAL CARE MANAGEMENT: Time spent including re-intubation 1 hour and 35 minutes. cc: Mane Roca MD
--- NOTE | 2018-11-18 09:41 | OPERATIVE NOTE ---
PROCEDURE DATE: 11/17/2018 PROCEDURE PERFORMED: Intubation and initiation of mechanical ventilation. CLINICAL INDICATIONS: A 53-year-old with stroke who has failed an extubation attempt with increasing oxygen requirements and poor clearance of secretions. PROCEDURE: A time-out was performed, and multiple people were at the bedside including the respiratory therapist and 2 nurses. All agreed with the procedure and the indications. The patient underwent preoxygenation by the respiratory therapist. He then received 80 mg of propofol. When patient was sedated, the vocal cords were visualized. He had a mild amount of bile around the vocal cords, and a portion of the NG tube was coiled in the back of the posterior pharynx. The NG tube was retracted slightly and straightened out. The bile was suctioned clear. The patient was not relaxed enough to permit passes of the endotracheal tube. The GlideScope was retracted, and the patient underwent additional Ambu-bag ventilation. The patient received 80 mg of succinylcholine. When patient was relaxed, the vocal cords were easily revisualized. The tube was advanced through the cords under the visualization of the GlideScope. There was good CO2 return and bilateral breath sounds noted. Tube was secured in place. A postprocedure chest x-ray was performed prior to this dictation, which reveals endotracheal tube to be in good position. cc: Mane Roca MD
[2018-11-18] MEDS ORDERED: POTASSIUM CHLORIDE 60 MEQ in NS 500 ML IV ONE (11:19)
[2018-11-18] MEDS: VANCOMYCIN 2,000 MG in NS 500 ML IV SCH (12:18)
--- NOTE | 2018-11-18 14:18 | GENERAL SURGERY PROGRESS NOTE ---
DATE: 11/18/2018 SUBJECTIVE: Remains critically ill. He is having fevers. He was reintubated. The heart rate has been in the 80s and 90s, blood pressure 120s-160s. He is on moderate ventilator settings. OBJECTIVE: Abdomen: Soft. His ostomy slightly dusky but not necrotic. His mucous fistula is pink. Midline incision dressing is intact. White count is up to 19, hematocrit is 26. I reviewed his ABG. Creatinine is 1.3, bilirubin is up to 2.40. ASSESSMENT AND PLAN: A 53-year-old gentleman with worsening pulmonary issues not having bowel function yet but seems overall stable from a pure surgical standpoint. Medically, he is not doing well. We will continue to follow along. I have talked to Dr. Roca. cc: Prem Mendez MD
[2018-11-18] MEDS: TPN ELECTROLYTES 20 ML, MAGNESIUM SULFATE 5 MEQ, POTASSIUM PHOSPHATE 15 MMOL, M.V.I.-12... IV SCH ×7 (16:00)
[2018-11-18] MEDS: SODIUM CHLORIDE 0.9% INJ SCH (20:50)
[2018-11-18] MEDS: LIPITOR PO SCH (20:51)
--- NOTE | 2018-11-18 21:08 | PULMONOLOGY PROGRESS NOTE ---
DATE: 11/18/2018 SUBJECTIVE: The patient remains on mechanical ventilation. He has mild increased work of breathing. OBJECTIVE: Maximum temperature in the last 24 hours 101.6 degrees. BP 104/70, heart rate 87, respiratory rate 23, oxygen saturation 99%. HEENT: Pupils are equal. Oropharynx appears dry. Neck is supple. Chest reveals coarse breath sounds bilaterally with decreased breath sounds in the right base. Cardiac exam: S1, S2. Abdomen is soft with diminished bowel sounds. Extremities are unchanged. DIAGNOSTIC DATA: Chest x-ray reveals slight increased density at the right base. LABORATORY DATA: Sputum culture is pending. White blood count 19.53, hemoglobin 8.7, platelet count 107,000. IMPRESSION: A 53-year-old male with: 1. Large right hemispheric stroke. 2. Bowel infarction, status post resection. 3. Cocaine and tobacco use. 4. Peripheral vascular disease. 5. Acute hypoxemic respiratory failure. 6. Right lower lobe pneumonia. 7. Status post failed extubation. PLAN: 1. Continue mechanical ventilation. 2. Continue TPN. 3. Continue antibiotics. 4. Recommend placement of tracheostomy. Will discuss with Dr. Phillips early next week. Time spent in critical care management: 30+ minutes cc: Mane Roca MD [facility]
--- NOTE | 2018-11-18 22:08 | PROGRESS NOTE ---
DATE: 11/18/2018 SUBJECTIVE: The patient has been reintubated yesterday after a few hours when he was extubated and placed with a BiPAP. No other complaints noted. OBJECTIVE: Vital Signs: Temperature 101.3, heart rate 87, respiratory rate 19, blood pressure 131/75, O2 saturation 100% on mechanical ventilator at FiO2 of 50%. General Examination: This is a chronically ill-appearing 53-year-old, -[place] male lying in bed, in no acute distress. HEENT: Head is normocephalic, atraumatic. Pupils barely reacting to light. The patient is on propofol. Neck: No JVD. No carotid bruits. No lymphadenopathy or thyromegaly. Cardiovascular Exam: S1 and S2 heard. No murmurs, gallops, or rubs. Regular rate and rhythm. Respiratory Examination: Some coarse breath sounds noted in both pulmonary bases. The patient is not using any accessory muscles or having work of breathing. The patient is intubated. Abdomen: Soft. The patient has 2 ostomies one in the right quadrant and one in the left lower quadrant with much output noted by the nursing staff. Extremities: No clubbing, cyanosis, or edema. Peripheral pulses present in both legs. Neurological Examination: The patient is sedated and intubated. LABORATORY DATA: White cell count is 19.53, hemoglobin 8.7, hematocrit 26.5, platelet 107. ABG shows pH 7.51, pCO2 41, pO2 86 with BMP that shows creatinine 1.3 and potassium 3.3. ASSESSMENT AND PLAN: 1. Acute hypoxemic respiratory failure and sepsis due to right lower lobe pneumonia and right- sided pleural effusion. The patient has been reintubated again. Unfortunately, his white cell count started getting higher. The patient is on vancomycin and cefepime day number 9 for both medications. The patient is requiring FiO2 of 50%. Pulmonary is following this patient, will follow recommendations. I think if he persists to have elevated white cell count, I think retain antibiotics tomorrow. 2. Pneumatosis intestinalis, peritonitis, with pneumoperitoneum, intestinal infarction. The patient is being followed by General Surgery. 3. 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 The patient is on aspirin, high- dose statin. Continues to require vasopressors. The patient is not on any heparin because that has caused some john-infarctions. Will continue to monitor. 4. Diabetes mellitus type 2. Will continue with sliding scale insulin. 5. Disposition. Will continue to monitor this patient closely in the Intensive Care Unit. His prognosis is very poor. I think this patient will need tracheostomy in the near future considering that he has been intubated 9 days. cc: Niranjan Lepe MD [facility]
[2018-11-19] MEDS: HUMULIN R SUBQ SCH ×7 (00:45→23:58)
[2018-11-19] MEDS: DIPRIVAN 1% 1,000 MG/100 ML BOTTLE IV SCH ×5 (01:55→22:26)
[2018-11-19] MEDS: DUONEB (A & A) INH SCH ×6 (03:16→22:49)
[2018-11-19] MEDS: TYLENOL PR PRN ×2 (03:27→18:46)
[2018-11-19 04:40] LABS: ALLEN TEST YES; BE 7.4 mmoll (-3.0-3.0); BLOOD TYPE ARTERIAL; HCO3-(ACT) 30.7 mmoll (20.0-26.0); METHB 0.8 % (0.0-1.5); O2(CT) 12.4 mL/dL (15.0-23.0); O2HB 95.6 % (95.0-99.0); PCO2(98.6) 40 mmHg (35-45); PO2(98.6) 93 mmHg (60-100); SAMPLE BLOOD; SAO2 97.1 % (95.0-100.0); SRATE 10 BPM; THB 9.1 g/dL (11.5-17.4); TVOL 650 mL
[2018-11-19 04:41] LABS: MODALITY VENTILATOR
[2018-11-19] MEDS: NEO-SYNEPHRINE 50 MG in NS 250 ML IV SCH ×2 (06:17→16:40)
[2018-11-19 06:43] LABS: MAGNESIUM 2.5 mg/dL (1.5-2.7); PHOSPHORUS 2.7 mg/dL (2.7-4.5)
[2018-11-19 06:46] LABS: AGAP 11; ALB/GLOB RATIO 0.5; ALBUMIN 2.1 g/dL (3.5-5.0); ALKALINE PHOSPHATASE 95 U/L (32-122); BUN 30 mg/dL (8-22); CALCIUM 8.4 mg/dL (8.8-10.2); CHLORIDE 108 mmol/L (98-107); COSMO 305; CREATININE 1.2 mg/dL (0.7-1.2); ESTIMATED GFR > 60; GLUCOSE 215 mg/dL (70-104); GOT 30 U/L (10-34); GPT 12 U/L (10-44); POTASSIUM 3.6 mmol/L (3.5-5.1); SODIUM 147 mmol/L (136-145); TCO2 28 mmol/L (25-35); TOTAL BILIRUBIN 2.11 mg/dL (0.20-1.00); TOTAL PROTEIN 6.1 g/dL (6.3-8.3)
[2018-11-19 07:01] LABS: HEMATOCRIT 25.5 % (42.0-52.0); HEMOGLOBIN 8.4 g/dL (14.0-18.0); MCH 29.4 PG (27-31); MCHC 32.9 g/dL (33-37); MCV 89.2 FL (81-99); MPV 12.9 FL (7.4-10.4); RBC 2.86 XMIL (4.7-6.1); RDW 15.2 % (11.5-14.5); WBC 13.45 X1000 (4.8-10.8)
[2018-11-19] MEDS: MUCOMYST 20% INH SCH ×2 (07:46→19:59)
--- NOTE | 2018-11-19 08:01 | Diag Imaging Result Doc PS360 ---
EXAM: CHEST-PORTABLE INDICATION: respiratory failure TECHNIQUE: One view COMPARISON: 11/18/2018 FINDINGS: Support tubes and lines are in stable positions. Consolidation throughout the right lung, worse at the base, is essentially stable. Milder consolidation at the left lung base is unchanged. No new consolidation is identified. Cardiac silhouette is stable. IMPRESSION: Stable chest. Electronically signed by Isak Oquendo 11/19/2018 7:59 AM
[2018-11-19] MEDS: MAXIPIME 2 GM in NS 100 ML IV SCH ×2 (08:12→20:57)
[2018-11-19] MEDS: PEPCID IV SCH ×2 (08:13→20:57)
[2018-11-19] MEDS: ASPIRIN NG SCH (08:13)
--- NOTE | 2018-11-19 10:31 | Diag Imaging Result Doc PS360 ---
EXAM: CHEST/ABD TUBE PLACEMENT INDICATION: NGT placement TECHNIQUE: One view COMPARISON: 11/19/2018 FINDINGS: The NG tube is identified with the tip projecting below the diaphragm and assumed to be in the lumen of the stomach in the expected position. The ET tube is stable. There are midline abdominal skin joanna. The lungs are overexposed due to focus on the NG tube. They are probably stable accounting for this limitation. IMPRESSION: NG tube identified in the expected position below the diaphragm. Electronically signed by Isak Oquendo 11/19/2018 10:28 AM
--- NOTE | 2018-11-19 13:11 | PROGRESS NOTE ---
DATE: 11/19/2018 SUBJECTIVE: The patient is sedated and intubated. No acute issues noted as per nursing staff overnight. OBJECTIVE: Vital Signs: Temperature 101.7 degrees, heart rate 97, respiratory rate 12, blood pressure 157/85, O2 saturation 100% on mechanical ventilator. FiO2 of 40%. General: This is a chronically ill-appearing, 53-year-old male, lying in bed, in no acute distress. HEENT: Head is normocephalic, atraumatic. Pupils reactive to light and accommodation. Neck: No JVD noted. No carotid bruits. No lymphadenopathy. Cardiovascular: S1, S2 heard. No murmurs, gallops, or rubs. Regular rate and rhythm. Respiratory: Coarse breath sounds noted in both pulmonary bases. Patient not using any accessory muscles or having work of breathing. Patient is intubated. Abdomen: Soft. The patient has 2 ostomies, one in the right lower quadrant and the other one is the left lower quadrant as well. Extremities: No clubbing, cyanosis, or edema. Peripheral pulses present in both legs. Neurological: Patient is sedated and intubated. LABORATORY DATA: White cell count 13.45, hemoglobin 8.4, hematocrit 25.5, platelets 145. ABG shows pH 7.50, with pCO2 40, PO2 93. Sodium 147, potassium 2.6. Creatinine 1.2. Glucose 215. Albumin 2.1. ASSESSMENT AND PLAN: 1. Acute hypoxemic respiratory failure. Sepsis due to right lower lobe pneumonia and right sided pleural effusion. Patient has been reintubated a couple days ago. Because his white cell count was elevated, we decided to change antibiotics. White cell count started getting better. Currently, he is on vancomycin and cefepime day #10 for both medications. Also FiO2 is 40%. Although numbers can look better, actually we tried to do weaning trials yesterday and he failed. He start breathing 50 to 60 times per minute. Considering his intubation for 9 days and now today is day #2 of being intubated, patient will need a tracheostomy. Dr. Roca is following this patient. I have talked with Dr. Phillips from General Surgery about this procedure. 2.Diffuse peritonitis with pneumoperitoneum and intestinal infarction. The patient is being followed by General Surgery. 3. Right middle cerebral artery stroke with right carotid thrombus with patent flow in the internal carotid artery status post IV heparin. The patient is on aspirin high doses. Not on any heparin because that has caused some john infarctions. Will continue to monitor. 4. Diabetes mellitus type 2. We will continue with sliding scale insulin before meals and also at bedtime. 5. Disposition: We will continue to monitor this patient in the intensive care unit. cc: Niranjan Lepe MD [facility]
[2018-11-19] MEDS: VANCOMYCIN 2,000 MG in NS 500 ML IV SCH (13:45)
[2018-11-19] MEDS: TPN ELECTROLYTES 20 ML, MAGNESIUM SULFATE 5 MEQ, POTASSIUM PHOSPHATE 15 MMOL, M.V.I.-12... IV SCH ×7 (15:10)
--- NOTE | 2018-11-19 15:12 | GENERAL SURGERY PROGRESS NOTE ---
DATE: 11/19/2018 SUBJECTIVE: Remains on low-dose Ronnie-Synephrine for cerebral perfusion pressure. Ventilator settings have been weaned. His jejunostomy is functioning. NG tube has become coiled and is having to be replaced. No tachycardia. I think he did have actually a fever overnight, 102. OBJECTIVE: He is sedated and intubated. Midline incision has some dressing. Ostomies are pink. There is liquid stool in the bag. LABORATORY DATA: White count is down to 13, hematocrit is 25. ABG was reviewed. Creatinine is 1.2. Electrolytes are better. ASSESSMENT AND PLAN: A 53-year-old gentleman status post extensive small-bowel resection for ischemic bowel. Remains critically ill. He has also had acute cerebral infarction prior to this, all related to cocaine use. Will continue following him surgically, but otherwise care per the critical care and hospitalist team. cc: Prem Mendez MD
[2018-11-19] MEDS ORDERED: DIFLUCAN 200 MG/NS 200 MG/100 ML IVPB IV SCH (17:15)
[2018-11-19] MEDS: LIPITOR PO SCH (20:57)
--- NOTE | 2018-11-19 21:20 | PULMONOLOGY PROGRESS NOTE ---
DATE: 11/19/2018 SUBJECTIVE: The patient is sedated. He becomes agitated with sedation vacation. He on high oxygen requirements on the ventilator. OBJECTIVE: Vital Signs: The patient has ongoing fever with a maximum temperature over the last 24 hours 102 degrees. BP 148/80, heart rate 90, respiratory rate 18, oxygen saturation 100%. HEENT: Pupils are equal and reactive. Oropharynx appears clear. Neck: Is supple. Chest: Reveals decreased breath sounds right base. Cardiac exam: S1, S2. Abdomen: Is soft with diminished bowel sounds. Extremities: Reveal trace edema. LABORATORIES: Sputum is growing a gram-negative kelly. White blood count 13.45, hemoglobin 8.4, platelet count 145,000. Sodium 147, potassium 3.6, chloride 108, bicarbonate 28, BUN 30, creatinine 1.2. Chest x-ray reveals consolidation in the right base. IMPRESSION: A 53-year-old with 1. Large right hemispheric stroke. 2. Pneumonia with gram-negative organism being identified. The patient currently is on cefepime. 3. History of cocaine and tobacco use. 4. Peripheral vascular disease. 5. Status post repair of an infarcted bowel with significant loss of small bowel. 6. Status post failed extubation. RECOMMENDATION: 1. Continue broad-spectrum antibiotics pending results of sputum cultures. 2. We will add antifungal agent given ongoing fevers. 3. Consider infectious disease consultation. 4. Recommend tracheostomy placement. We will discuss with Dr. Phillips next week. cc: Mane Roca MD
[2018-11-20] MEDS: DIPRIVAN 1% 1,000 MG/100 ML BOTTLE IV SCH ×8 (01:58→23:22)
[2018-11-20] MEDS: TYLENOL PR PRN ×2 (02:45→20:02)
[2018-11-20] MEDS: DUONEB (A & A) INH SCH ×6 (03:32→23:03)
[2018-11-20] MEDS: HUMULIN R SUBQ SCH ×6 (04:41→23:58)
[2018-11-20 04:43] LABS: ALLEN TEST YES; BE 6.1 mmoll (-3.0-3.0); BLOOD TYPE ARTERIAL; HCO3-(ACT) 29.7 mmoll (20.0-26.0); METHB 0.8 % (0.0-1.5); O2(CT) 11.3 mL/dL (15.0-23.0); O2HB 94.4 % (95.0-99.0); PCO2(98.6) 35 mmHg (35-45); PO2(98.6) 73 mmHg (60-100); SAMPLE BLOOD; SAO2 95.7 % (95.0-100.0); SRATE 10 BPM; THB 8.4 g/dL (11.5-17.4); TVOL 650 mL; pH(98.6) 7.53 (7.35-7.45)
[2018-11-20 04:44] LABS: MODALITY VENTILATOR
[2018-11-20 05:23] LABS: HEMATOCRIT 24.7 % (42.0-52.0); MCH 29.7 PG (27-31); MCHC 32.4 g/dL (33-37); MCV 91.8 FL (81-99); MPV 12.4 FL (7.4-10.4); RBC 2.69 XMIL (4.7-6.1); RDW 15.5 % (11.5-14.5); WBC 14.04 X1000 (4.8-10.8)
[2018-11-20] MEDS: MORPHINE IV PRN ×6 (05:31→23:56)
[2018-11-20 05:38] LABS: MAGNESIUM 2.3 mg/dL (1.5-2.7); PHOSPHORUS 2.9 mg/dL (2.7-4.5)
[2018-11-20 05:40] LABS: AGAP 13; ALB/GLOB RATIO 0.5; ALBUMIN 1.9 g/dL (3.5-5.0); ALKALINE PHOSPHATASE 86 U/L (32-122); BUN 32 mg/dL (8-22); CHLORIDE 108 mmol/L (98-107); COSMO 310; CREATININE 1.2 mg/dL (0.7-1.2); ESTIMATED GFR > 60; GLUCOSE 263 mg/dL (70-104); GOT 32 U/L (10-34); GPT 13 U/L (10-44); POTASSIUM 3.2 mmol/L (3.5-5.1); SODIUM 148 mmol/L (136-145); TCO2 27 mmol/L (25-35); TOTAL BILIRUBIN 1.91 mg/dL (0.20-1.00); TOTAL PROTEIN 6.1 g/dL (6.3-8.3)
--- NOTE | 2018-11-20 07:07 | Diag Imaging Result Doc PS360 ---
EXAM: CHEST-PORTABLE 11/20/2018 HISTORY: respiratory failure TECHNIQUE: AP portable at 0515 COMMENT: There is an endotracheal tube with its tip at the thoracic inlet and an NG tube which passes below the diaphragm. There is diffuse interstitial opacity with alveolar opacity silhouetting the right hemidiaphragm. Compared to 11/19/2018 this has improved. IMPRESSION: Improved pulmonary edema. Atelectasis versus pneumonia right lower lobe. Electronically signed by Pranay White 11/20/2018 7:04 AM
[2018-11-20] MEDS: MUCOMYST 20% INH SCH ×2 (07:58→19:36)
[2018-11-20] MEDS: NEO-SYNEPHRINE 50 MG in NS 250 ML IV SCH ×3 (08:02→21:12)
[2018-11-20] MEDS: MAXIPIME 2 GM in NS 100 ML IV SCH (08:05)
[2018-11-20] MEDS: SODIUM CHLORIDE 0.9% INJ SCH ×2 (08:08→20:01)
[2018-11-20] MEDS: PEPCID IV SCH ×2 (08:08→20:01)
[2018-11-20] MEDS ORDERED: POTASSIUM CHLORIDE 60 MEQ in NS 500 ML IV ONE (09:45)
--- NOTE | 2018-11-20 10:51 | PROGRESS NOTE ---
DATE: 11/20/2018 SUBJECTIVE: According to nursing staff apparently, the patient is having drainage from surgical midline incision. Also, it has been noticed, some coffee-ground secretions and some bloody secretions coming out from the NG tube. OBJECTIVE: Vital Signs: Temperature 100.9 degrees, heart rate 98, respiratory rate 20, blood pressure 146/81, O2 saturation 94% on room air. General: This is a chronically ill-appearing, 53- year-old, male, lying in bed in no acute distress. HEENT: Head is normocephalic, atraumatic. Pupils equal, round, and reactive to light and accommodation. Neck: No JVD noted. No carotid bruit. Cardiovascular: S1, S2 heard. No murmurs, gallops, or rubs. Regular rate and rhythm. Respiratory: Coarse breath sounds noted in both pulmonary bases, unchanged in comparing with previous days. The patient is not using accessory muscles or having work of breathing. Abdomen: Soft. The patient has two ostomies in the right and left lower quadrants and also some minimal drainage in the surgical midline incision. Extremities: No clubbing, cyanosis, or edema. Peripheral pulses are present in both legs. Neurological: The patient is sedated and intubated. LABORATORY DATA: White cell count 14.04, hemoglobin 8.0, hematocrit 24.7, platelets 170,000. ABG shows pH 7.33, pCO2 of 35, PO2 of 73 on ventilator at FiO2 of 30%. Potassium 3.2, normal creatinine, glucose 263. ASSESSMENT AND PLAN: 1. Acute hypoxemic respiratory failure secondary to right lower lobe pneumonia, right-sided pleural effusion. The patient has been reintubated again. White cell count is still elevated. The patient will continue with oral antibiotics. Ventilator is FiO2 of 30%. At this point, considering his prolonged intubation, will need tracheostomy. Dr. Phillips from General Surgery will talk to him about it. 2. Pneumatosis intestinalis peritonitis with pneumoperitoneum and intestinal infarction. The patient will follow up with General Surgery. 3. Right middle cerebral artery stroke with right carotid bulb thrombosed with patent flow in the internal carotid artery, status post intravenous heparin. Clinically stable. No signs of any neurological symptoms. Will continue to monitor. 4. Diabetes mellitus type 2. Will continue with sliding scale insulin and Accu- Chek before meals and also at bedtime. 5. Disposition. At this point, will continue monitoring this patient here in the intensive care unit. Will discuss with Dr. Phillips when is the best time to place a tracheostomy for this patient. cc: Niranjan Lepe MD [facility]
[2018-11-20] MEDS: ASPIRIN NG SCH (12:01)
[2018-11-20] MEDS: VANCOMYCIN 2,000 MG in NS 500 ML IV SCH (13:05)
[2018-11-20] MEDS: LEVAQUIN 750 MG/D5W 750 MG/150 ML IVPB IV SCH (14:21)
[2018-11-20] MEDS ORDERED: TPN ELECTROLYTES 20 ML, MAGNESIUM SULFATE 5 MEQ, POTASSIUM PHOSPHATE 15 MMOL, M.V.I.-12... IV SCH ×7 (15:00)
--- NOTE | 2018-11-20 15:03 | PROGRESS NOTE ---
DATE: 11/20/2018 Mr. Davis has been febrile over the weekend but he is afebrile through the morning today. WBC count was 14,000 today. He has been reintubated, sedated, mechanically ventilated now. There is report that he had slight withdrawal of the left hand with either venipuncture or arterial puncture earlier. On exam, there is nothing significantly different neurologically. He responds minimally with noxious stimulation over the right limbs, but not the left limbs. Last brain imaging was noncontrast CT just over a week ago showing some improvement in the apparent petechial findings within area of recent infarction noted on earlier CT. I have some concern for brain abscess. I think it would be reasonable to obtain contrast CT (creatinine stable around 1.2 over the last few days- this is not ideal but I think we can hydrate him and reduce risk for impairment of renal function). If there is not evidence of new brain inflammation or bleeding, next step would be to consider lumbar puncture. Dr. Davis has been consulted for Infectious Disease opinion and I will also check with him. Thanks for asking Neurology to see Mr. Davis. cc: MD MERCEDES Patton III
--- NOTE | 2018-11-20 16:02 | Diag Imaging Result Doc PS360 ---
CT HEAD W/WO CONTRAST - 11/20/2018 INDICATION: fever, prior abnormal CT, rule out abscess TECHNIQUE: COMPARISON: 11/12/2018 FINDINGS: There is a stable area of extensive encephalomalacia in the lateral right cerebral hemisphere, in the middle cerebral artery territory. No mass effect or intracranial hemorrhage. No evidence of intracranial abscess. There is no abnormal contrast enhancement. There is mastoiditis of much of the right mastoid complex, new from prior. There is also significant sphenoid sinusitis. IMPRESSION: Right mastoiditis. Significant sphenoid sinusitis. No acute intracranial process. This exam was performed using automated exposure control, adjustment of mA or kV according to patient size, and/or use of iterative reconstruction technique Electronically signed by Jesus Varela 11/20/2018 3:59 PM
--- NOTE | 2018-11-20 16:38 | INFECTIOUS DISEASE CONSULT REP ---
DATE: 11/20/2018 CONCLUSION: Dr. Vasquez asked me to see the patient regarding patient's gram-negative kelly pneumonia. The organism is Acinetobacter. It is susceptible to cefepime, which the patient is on, but despite being on cefepime now for ten days, the chest x-ray shows worsening of the patient's right lower lobe infiltrate. Also, the patient is on fluconazole and with the Levaquin that I am starting the patient on, it can interact with fluconazole to prolong the QT interval. RECOMMENDATIONS: I discontinued vancomycin and cefepime and have started the patient on Levaquin. Also, I have discontinued fluconazole because it can interact with Levaquin to increase the QT interval and instead I am putting the patient on micafungin. DISCUSSION: The patient is unable to provide any history. He is intubated and sedated. He came into the hospital with abdominal pain. Eventually, he underwent an extensive small bowel resection due to an ischemic bowel. The patient has a right lower lobe infiltrate and the sputum grew out Acinetobacter baumannii. The patient's CBC shows a white count of 14,040, hemoglobin 8, platelet count 170,000. Blood gases show a pH of 7.53, pO2 73, and pCO2 35. Creatinine is 1.2. GFR is greater than 60. Repeat blood cultures are pending. An echocardiogram was done. No vegetation was seen but it was a suboptimal study. Patient is unable to provide a history because he is intubated and no family member is present. The information I did get was from the computer. 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 PAST SURGICAL HISTORY: The patient has had peripheral stents placed but the actual location is not certain. The patient has had excision of his sarcoma. SOCIAL HISTORY: The patient smokes cigarettes. He denied alcohol or drug use, but he has had positive drug screen in the last several times he has been here for cocaine. FAMILY HISTORY: Unobtainable. REVIEW OF SYSTEMS: Unobtainable. PHYSICAL EXAMINATION: Vital Signs: Temperature is 98.8, pulse is 80, respirations 13, blood pressure is 135/72. The patient is 5 feet 8 inches tall, weighs 173 pounds. General: This is an ill appearing middle aged male. He is intubated and sedated. Head/eyes/ears/nose/throat: The patient has an orotracheal and nasogastric tube in place. There is no drainage from the nose or ears. Neck: No meningismus. Lungs: Clear to auscultation. Cardiovascular: Regular heart rate. Abdomen: Soft and nontender. There are two ostomies present. In addition, the patient has a midline incision and in the lower part of the incision there is a yellow drainage appearing. Neurologic: The patient is sedated. He does not respond to verbal stimuli. There is no tremor. Integument: No rash noted. Thank you for the consult. cc: Nabeel Davis MD
[2018-11-20] MEDS: MYCAMINE 100 MG in NS 100 ML IV SCH (16:40)
[2018-11-20] MEDS: LIPITOR PO SCH (20:01)
--- NOTE | 2018-11-20 21:00 | GENERAL SURGERY PROGRESS NOTE ---
DATE: 11/20/2018 Mr. Davis has failed his weaning trials. He is afebrile. Heart is rate 85, blood pressure 129/68. His stomas are viable. He has some drainage from his lower midline incision. White count is 14,000. The plan will be to open his lower wound in order to allow drainage of the wound infection. We will culture it. I did discuss trach with his sister and family. They understand and agree to proceed. We will tentatively plan to proceed on Tuesday with a trach placement. cc: Alexis Phillips MD
[2018-11-20] MEDS ORDERED: D5W 1,000 ML IV SCH (21:30)
[2018-11-20] MEDS: ALBUMIN 25% IV SCH (23:25)
[2018-11-21] MEDS: DIPRIVAN 1% 1,000 MG/100 ML BOTTLE IV SCH ×8 (02:04→23:27)
[2018-11-21] MEDS: MORPHINE IV PRN ×6 (03:04→23:26)
[2018-11-21] MEDS: DUONEB (A & A) INH SCH ×6 (03:15→23:05)
[2018-11-21] MEDS: HUMULIN R SUBQ SCH ×2 (03:41→08:40)
[2018-11-21 04:22] LABS: ALLEN TEST YES; BE 2.4 mmoll (-3.0-3.0); BLOOD TYPE ARTERIAL; HCO3-(ACT) 26.8 mmoll (20.0-26.0); METHB 0.5 % (0.0-1.5); O2(CT) 10.8 mL/dL (15.0-23.0); PCO2(98.6) 37 mmHg (35-45); PO2(98.6) 79 mmHg (60-100); SAMPLE BLOOD; SAO2 95.7 % (95.0-100.0); SRATE 10 BPM; TVOL 650 mL; pH(98.6) 7.46 (7.35-7.45)
[2018-11-21] MEDS: ALBUMIN 25% IV SCH (04:22)
[2018-11-21] MEDS: TYLENOL PR PRN (04:22)
[2018-11-21 04:23] LABS: MODALITY VENTILATOR
[2018-11-21 06:25] LABS: AGAP 11; ALB/GLOB RATIO 0.5; ALBUMIN 2.1 g/dL (3.5-5.0); ALKALINE PHOSPHATASE 94 U/L (32-122); BUN 31 mg/dL (8-22); CALCIUM 8.4 mg/dL (8.8-10.2); CHLORIDE 106 mmol/L (98-107); COSMO 300; CREATININE 1.2 mg/dL (0.7-1.2); ESTIMATED GFR > 60; GLUCOSE 310 mg/dL (70-104); GOT 33 U/L (10-34); GPT 13 U/L (10-44); SODIUM 141 mmol/L (136-145); TCO2 24 mmol/L (25-35); TOTAL BILIRUBIN 1.92 mg/dL (0.20-1.00); TOTAL PROTEIN 6.2 g/dL (6.3-8.3)
[2018-11-21 06:26] LABS: AGAP 12; BUN 32 mg/dL (8-22); CALCIUM 8.1 mg/dL (8.8-10.2); CHLORIDE 107 mmol/L (98-107); COSMO 306; CREATININE 1.2 mg/dL (0.7-1.2); ESTIMATED GFR > 60; GLUCOSE 313 mg/dL (70-104); MAGNESIUM 2.1 mg/dL (1.5-2.7); POTASSIUM 4.4 mmol/L (3.5-5.1); SODIUM 144 mmol/L (136-145); TCO2 25 mmol/L (25-35)
[2018-11-21 06:50] LABS: HEMATOCRIT 25.3 % (42.0-52.0); HEMOGLOBIN 8.1 g/dL (14.0-18.0); MCH 29.2 PG (27-31); MCV 91.3 FL (81-99); MPV 12.5 FL (7.4-10.4); RBC 2.77 XMIL (4.7-6.1); WBC 13.9 X1000 (4.8-10.8)
--- NOTE | 2018-11-21 07:47 | PULMONOLOGY PROGRESS NOTE ---
DATE: 11/20/2018 SUBJECTIVE: The patient remains on mechanical ventilation. He is requiring Ronnie-Synephrine for blood pressure support. OBJECTIVE: Vital Signs: Maximum temperature in the last 24 hours is 102 degrees, BP 133/72, heart rate 86, respiratory rate 15, oxygen saturation 97%. HEENT: Pupils are equal and reactive. Oropharynx appears dry. Neck: Supple. Chest: Coarse rhonchi bilaterally. Cardiac: Regular rate. Normal S1, normal S2. Abdomen: Soft with drainage noted at the inferior portion of his wound, which has been opened by Dr. Phillips. IMAGING AND LABORATORY DATA: Wound culture reveals 1+ gram-negative rods. Sputum culture reveals Acinetobacter baumannii complex. CT scan of the brain reveals mastoiditis and sphenoid sinusitis, but no evidence of brain abscess. White blood count 14,000, hemoglobin 8.0, platelet count 170,000. Sodium 148, potassium 3.2, chloride 108, bicarbonate 27, BUN 32, creatinine 1.2. Total protein 6.1, albumin 1.9. Chest x-ray reveals some improvement in the right basilar edema/pneumonia. IMPRESSION: A 53-year-old with: 1. Large hemispheric stroke. 2. Infarcted bowel requiring surgical repair with significant loss of small bowel. 3. Gram-negative pneumonia. 4. Sinusitis. 5. Altered mental status. 6. Status post failed extubation. PLAN: 1. Continue broad-spectrum antibiotics per Dr. Nabeel Davis. 2. Await results of wound culture. 3. Anticipate tracheostomy placement. 4. Prognosis remains guarded. cc: Mane Roca MD
[2018-11-21] MEDS: MUCOMYST 20% INH SCH ×2 (07:48→19:30)
--- NOTE | 2018-11-21 07:55 | Diag Imaging Result Doc PS360 ---
EXAM: CHEST-PORTABLE INDICATION: respiratory failure TECHNIQUE: One view COMPARISON: 11/20/2018 FINDINGS: Support tubes and lines are in stable positions. Diffuse interstitial opacity bilaterally as well as the right basilar airspace opacity are approximately stable. No new consolidation is identified. Cardiac silhouette is stable. IMPRESSION: Stable chest. Electronically signed by Isak Oquendo 11/21/2018 7:53 AM
[2018-11-21] MEDS: NEO-SYNEPHRINE 50 MG in NS 250 ML IV SCH ×2 (08:03→16:18)
[2018-11-21] MEDS: PEPCID IV SCH ×2 (08:04→20:24)
[2018-11-21] MEDS: SODIUM CHLORIDE 0.9% INJ SCH ×2 (08:04→20:23)
[2018-11-21] MEDS: ASPIRIN NG SCH (10:00)
--- NOTE | 2018-11-21 11:33 | PROGRESS NOTE ---
DATE: 11/21/2018 SUBJECTIVE: The patient continues to have drainage from surgical midline incision. No other issues noted as per nursing staff overnight. OBJECTIVE: Vitals: Temperature 99.1, heart rate 96, respiratory rate 19, blood pressure 114/70, O2 saturation 98% on mechanical ventilator FiO2 30%. General Examination: This is a chronically ill-appearing 53-year-old, -[place] male lying in bed, in no acute distress. HEENT: Head is normocephalic and atraumatic. Pupils are equal, round, and reactive to light and accommodation. Mucous membranes dry. The patient is intubated. Neck: No JVD noted. No carotid bruit. No lymphadenopathy. No thyromegaly. Cardiovascular Exam: S1, S2 heard. No murmurs, gallops, or rubs. Regular rate and rhythm. Respiratory Examination: Coarse breath sounds still noted in both pulmonary bases unchanged in comparison with previous day. The patient is not using any accessory muscles or having work of breathing. Abdomen: Soft. The patient has 2 ostomies in the right and left lower quadrant and there is still some drainage in the surgical midline incision. Extremities: No clubbing, cyanosis, or edema. Peripheral pulses present in both legs. Neurological Examination: The patient is sedated and intubated. LABORATORY DATA: The white cell count is 13.9, hemoglobin 8.1, hematocrit 25.3, platelet 201. ABG shows pH 7.46, pCO2 37, pO2 79, that was taken on ventilator FiO2 of 30%. BMP reveals BUN 32, glucose 313, total protein 1.92. ASSESSMENT AND PLAN: 1. Acute hypoxemic respiratory failure secondary to right lower lobe pneumonia, right-sided pleural effusion. Even though the patient is on FiO2 of 30%, he continues to fail weaning trials. In that regard, recommendations from Pulmonary was to place a tracheostomy tube. That is going to be done apparently this afternoon. Dr. Phillips following this patient with her recommendations. Also because of worsening lung infection, Dr. Davis has been consulted and they have started him on Levaquin and also Micafungin. 2. Pneumatosis intestinalis with peritonitis, pneumoperitoneum, and intestinal infarction. The patient is followed by General Surgery, will follow recommendations. 3. 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 At this point, the patient is stable. No new apparent neurological symptoms. Will continue to monitor. 4. Diabetes mellitus type 2. Will continue with sliding scale insulin and Accu-Chek q.4 hours. 5. Disposition. At this point, the patient will remain in the Intensive Care Unit. Will perform tracheostomy today as per Dr. Phillips. Will continue to monitor this patient closely. cc: Niranjan Lepe MD
[2018-11-21] MEDS: HUMALOG SUBQ SCH ×4 (12:05→22:26)
--- NOTE | 2018-11-21 12:46 | PROGRESS NOTE ---
DATE: 11/21/2018 Mr. Davis looks about the same clinically. There is nothing new neurologically. His CT scan with contrast did not show any enhancing lesion and specifically did not show evidence of abscess or brain inflammation. There is no evidence of new infarction or bleeding. Temperature elevation has been minimal for more than 24 hours now. I do not think we need to pursue LP at this point. cc: Evaristo Keene III, MD
[2018-11-21] MEDS: LEVAQUIN 750 MG/D5W 750 MG/150 ML IVPB IV SCH (13:15)
[2018-11-21] MEDS ORDERED: NEO-SYNEPHRINE 50 MG in NS 250 ML IV SCH (14:24)
[2018-11-21] MEDS ORDERED: XYLOCAINE 1%/EPI 1:100,000 ONE (14:39)
--- NOTE | 2018-11-21 14:46 | INFECTIOUS DISEASE PROGRESS NO ---
DATE: 11/21/2018 PRESENT ILLNESS: The patient is being treated for an Acinetobacter pneumonia and also for an infected abdominal incision. MEDICATIONS: This is day 1 of treatment with Levaquin and micafungin. PHYSICAL EXAMINATION: Vital Signs: Temperature is 99 degrees, pulse 87, respirations 16, blood pressure 121/64. General: This is an ill-appearing middle-aged male. He is intubated and sedated. Head, eyes, ears, nose, and throat: The patient has an orotracheal and nasogastric tube in place. Neck: No meningismus. Lungs: Clear to auscultation. Cardiovascular: Heart rate is regular. Abdomen: Soft. It did not appear to be tender. There is a midline incision that has yellow drainage coming from it. The patient also has [address] and both of them appear to be functional. Neurologic: Patient is sedated. He did not respond to verbal stimuli. Integument: No rash. LAB AND X-RAY STUDIES: Patient's CBC shows a white count of 13,900, hemoglobin 8.1, platelet count 201,000. Blood gases show a pH of 7.46, a PO2 of 79, and a pCO2 of 37. Blood cultures are negative. A culture from the patient's draining abdominal incision is growing a gram-negative kelly and yeast. ASSESSMENT AND PLAN: The patient has an Acinetobacter pneumonia for which he is on Levaquin. The patient also has yellow drainage coming from the wound which could be infected. For that, the patient is taking micafungin and Levaquin. COMORBIDITIES: The patient is diabetic. He has a history of drug abuse. He also smokes cigarettes. He has a history of having a sarcoma. The patient also has deep venous thrombi in his legs. cc: Nabeel Davis MD
[2018-11-21] MEDS ORDERED: M V I IV SCH ×8 (15:00)
[2018-11-21] MEDS ORDERED: [UNRECOGNIZED DRUG - OTHER] IV SCH ×8 (15:00)
[2018-11-21] MEDS ORDERED: MAGNESIUM SULFATE IV SCH ×8 (15:00)
[2018-11-21] MEDS ORDERED: TPN ELECTROLYTES IV SCH ×8 (15:00)
[2018-11-21] MEDS ORDERED: SODIUM CHLORIDE 0.9% 10 ML ONE (15:05)
[2018-11-21] MEDS ORDERED: NEO-SYNEPHRINE ONE (15:05)
[2018-11-21] MEDS ORDERED: ZEMURON ONE (15:31)
[2018-11-21] MEDS ORDERED: NEOSTIGMINE ONE (15:34)
[2018-11-21] MEDS ORDERED: ROBINUL ONE (15:34)
[2018-11-21] MEDS: MYCAMINE 100 MG in NS 100 ML IV SCH (18:00)
--- NOTE | 2018-11-21 20:12 | OPERATIVE NOTE ---
PROCEDURE DATE: 11/21/2018 NAME OF PROCEDURE: Tracheostomy. SURGEON: Alexis Phillips MD. ASSISTANTS: Alea Agudelo. PREOPERATIVE DIAGNOSES: 1. Respiratory failure. 2. Cerebrovascular accident. 3. Ischemic bowel. POSTOPERATIVE DIAGNOSES: 1. Respiratory failure. 2. Cerebrovascular accident. 3. Ischemic bowel. DESCRIPTION OF PROCEDURE: The patient came to the operating room ventilated and sedated. The patient was placed on the operating room table. The anterior neck was prepped and draped in a sterile fashion. We marked the skin in a vertical fashion over the palpated trachea. We anesthetized the skin with 1% lidocaine with epinephrine. We incised the skin and carried our incision into the subcutaneous tissue in the midline. Crossing vein was ligated with 3-0 silk tie and divided. We continued using the electrocautery in the midline between the strap muscles until we reached the trachea. We tested the balloon of the 8 Shiley tracheostomy underwater. It was appropriately intact. We placed the tracheostomy ties on the tracheostomy flange. We placed our tracheostomy hook to stabilize the trachea. We then removed the second tracheal ring. The anesthesiologist then brought the endotracheal tube back until it passed our view and then we inserted the 8 Shiley tracheostomy with the obturator in. After placing it in, we removed the obturator, passed a flexible suction cannula and it went easily, and we sucked out the mucus. We then placed the inner cannula. The assistant unit forester then held the flange in position. I used 3-0 nylons from the skin through the hole in the flange on each side. We then removed the tracheostomy hook, the [employer], and the self-retaining retractor. We placed 3-0 nylon simple stitches inferiorly to close the skin. We then removed the upper drape, and passed our tracheostomy tie around the neck and tied it. The patient corrugated ventilator tubing had already been placed over the drape and attached to the tracheostomy as soon as we put the inner cannula in. He ventilated satisfactorily. After the tracheostomy tie was tied, we then placed a gauze dressing over the wound. He tolerated it well, was transferred back to the ICU in stable condition. cc: Alexis Phillips MD
[2018-11-21] MEDS: LIPITOR PO SCH (20:24)
[2018-11-22] MEDS: HUMALOG SUBQ SCH ×6 (00:28→20:28)
[2018-11-22] MEDS: NEO-SYNEPHRINE 50 MG in NS 250 ML IV SCH ×2 (00:28→08:17)
[2018-11-22] MEDS: DIPRIVAN 1% 1,000 MG/100 ML BOTTLE IV SCH ×7 (02:57→22:01)
[2018-11-22] MEDS: DUONEB (A & A) INH SCH ×6 (03:24→23:15)
--- NOTE | 2018-11-22 03:46 | PULMONOLOGY PROGRESS NOTE ---
DATE: 11/21/2018 SUBJECTIVE: The patient is not awake or alert. He transiently moves his right arm. He remains on mechanical ventilation. OBJECTIVE: Vital Signs: Maximum temperature in the last 24 hours 100.6 degrees. BP 117/68, heart rate 88, respiratory rate 16, oxygen saturation 96% on mechanical ventilation. HEENT: Pupils appear equal. Oropharynx appears dry. Neck: Supple. Chest: Reveals decreased breath sounds right base. Cardiac: S1, S2. Abdomen: Soft with positive bowel sounds. Extremities: Reveal +1 edema. LABORATORIES: Chest x-ray reveals infiltrates right base without significant change. White blood count 13.9, hemoglobin 8.1, platelet count 201,000. Sodium 140, potassium 4.4, chloride 107, bicarbonate 25, BUN 32, creatinine 1.2. Glucose 170. Arterial blood gas, pH 7.46, pCO2 of 37, PO2 of 79. IMPRESSION: A 53-year-old with 1. Large hemispheric stroke with altered mental status. 2. Fevers. 3. 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 4. Gram-negative pneumonia. 5. Sinusitis. 6. Status post failed extubation. PLAN: 1. Anticipate tracheostomy placement later today by Dr. Alexis Phillips. 2. Continue current antibiotic regimen. No new data. 3. Begin trach trials if patient is strong enough after tracheostomy placement. 4. Prognosis appears guarded to poor. Time spent in critical care management: 30+ minutes cc: Mane Roca MD MTDD
[2018-11-22 04:20] LABS: BLOOD TYPE ARTERIAL; SAMPLE BLOOD
[2018-11-22 04:21] LABS: ALLEN TEST YES; BE 1.8 mmoll (-3.0-3.0); HCO3-(ACT) 26.3 mmoll (20.0-26.0); METHB 1.1 % (0.0-1.5); O2(CT) 10.6 mL/dL (15.0-23.0); O2HB 94.9 % (95.0-99.0); PCO2(98.6) 33 mmHg (35-45); PO2(98.6) 99 mmHg (60-100); SRATE 10 BPM; THB 7.8 g/dL (11.5-17.4); TVOL 650 mL; pH(98.6) 7.49 (7.35-7.45)
[2018-11-22 04:22] LABS: MODALITY VENTILATOR
[2018-11-22 05:35] LABS: HEMATOCRIT 23.3 % (42.0-52.0); HEMOGLOBIN 7.7 g/dL (14.0-18.0); MCH 30.6 PG (27-31); MCV 92.5 FL (81-99); MPV 12.9 FL (7.4-10.4); RBC 2.52 XMIL (4.7-6.1); RDW 15.6 % (11.5-14.5); WBC 14.84 X1000 (4.8-10.8)
[2018-11-22 05:59] LABS: MAGNESIUM 2.1 mg/dL (1.5-2.7); PHOSPHORUS 3.3 mg/dL (2.7-4.5); PREALBUMIN 4.4 mg/dL (20-40)
[2018-11-22 06:00] LABS: AGAP 13; ALB/GLOB RATIO 0.5; ALKALINE PHOSPHATASE 113 U/L (32-122); BUN 34 mg/dL (8-22); CALCIUM 8.7 mg/dL (8.8-10.2); CHLORIDE 107 mmol/L (98-107); COSMO 292; CREATININE 1.4 mg/dL (0.7-1.2); ESTIMATED GFR > 60; GLUCOSE 85 mg/dL (70-104); GOT 47 U/L (10-34); GPT 16 U/L (10-44); POTASSIUM 4.2 mmol/L (3.5-5.1); SODIUM 143 mmol/L (136-145); TCO2 23 mmol/L (25-35); TOTAL BILIRUBIN 2.48 mg/dL (0.20-1.00); TOTAL PROTEIN 6.4 g/dL (6.3-8.3)
--- NOTE | 2018-11-22 07:02 | Diag Imaging Result Doc PS360 ---
EXAM: CHEST-PORTABLE 11/22/2018 HISTORY: respiratory failure TECHNIQUE: AP portable at 0523 COMMENT: There is a tracheostomy tube with its tip at the thoracic inlet and an NG tube with its tip below the diaphragm. There is ill-defined opacity in both lungs particularly in the right lower lobe. There may be slightly worsened opacification present in the lateral right base compared to 11/21/2018. IMPRESSION: Slightly worsened atelectasis versus pneumonia right lower lobe. Pulmonary edema. Electronically signed by Pranay White 11/22/2018 7:00 AM
[2018-11-22] MEDS: MUCOMYST 20% INH SCH ×2 (08:05→19:38)
[2018-11-22] MEDS: PEPCID IV SCH ×2 (10:21→20:28)
[2018-11-22] MEDS: MORPHINE IV PRN ×3 (10:21→17:27)
[2018-11-22] MEDS: SODIUM CHLORIDE 0.9% INJ SCH ×2 (10:21→20:28)
--- NOTE | 2018-11-22 10:37 | PROGRESS NOTE ---
DATE: 11/22/2018 SUBJECTIVE: Patient continues to have diffuse drainage from surgical midline incision with no other issues noted as per nursing staff overnight. He got a tracheostomy in place at [place]. OBJECTIVE: Vital Signs: Temperature 98.7, heart rate 103, respiratory rate 18, blood pressure 131/71, and O2 sat 97% on mechanical ventilator at FiO2 30%. General: This is a chronically ill appearing 53-year-old male lying in bed in no acute distress. HEENT: Head is normocephalic and atraumatic. The pupils are equal, round, and reactive to light and accommodation. Mucous membranes very dry. Neck: There is a tracheostomy tube in place connected to ventilator. No JVD noted. No carotid bruits. No lymphadenopathy. Cardiovascular: S1, S2 heard. No murmurs, gallops, or rubs. Regular rate and rhythm. Respiratory: Coarse breath sounds still noted in both pulmonary bases unchanged in comparing with previous days. Patient is not using any accessory muscles or having work of breathing. Abdomen: Soft. Patient had 2 ostomies in the right and left lower quadrant. There is there is drainage coming out from the surgical midline incision. There is some metal stitches that have been removed. Extremities: No clubbing, cyanosis, or edema. Peripheral pulses present in both legs. Neurological: Patient is sedated and intubated. LABORATORY DATA: White cell count 14.84, hemoglobin 7.7, hematocrit 23.3 and platelets 290,000. ABG shows pH 7.49, with pCO2 33 and PO2 99. That is on ventilator 30%. The BMP is remarkable for creatinine 1.4. Sugar 85. Total bilirubin 2.48. ASSESSMENT AND PLAN: 1. Acute hypoxemic respiratory failure secondary to right lower lobe pneumonia with right-sided pleural effusion. Because of prolonged intubation, it was decided to place a tracheostomy tube. Dr. Phillips performed that procedure. His help is appreciated. Pulmonary is also following this patient. The patient is on Levaquin for that condition. We will follow recommendations. 2. Pneumatosis intestinalis with peritonitis, pneumoperitoneum and intestinal infarction. The patient is being followed by General Surgery. Unfortunately, this patient has developed infection with surgical wound with profuse drainage secretion. Patient is on micafungin and Levaquin for that condition. 3. 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 At this point, we will continue with the same management. We are not using any heparin because of worsening stroke. No new apparent neurological symptoms. We will continue to monitor this patient closely. 4. Diabetes mellitus type 2. We will continue with sliding scale insulin and Accu-Chek's q.4 hours. 5. Disposition. At this point, patient will remain in the intensive care unit. Considering all of his comorbidities, his prognosis is very poor. He has been in the hospital for thirteen days and not getting better. We will continue to monitor this patient closely. cc: Niranjan Lepe MD
[2018-11-22] MEDS ORDERED: NEO-SYNEPHRINE 50 MG in NS 250 ML IV SCH (12:03)
[2018-11-22] MEDS: ASPIRIN NG SCH (12:05)
--- NOTE | 2018-11-22 14:09 | INFECTIOUS DISEASE PROGRESS NO ---
DATE: 11/22/2018 PRESENT ILLNESS: The patient has an Acinetobacter pneumonia and also has an infected lower abdominal incision. Culture from the incision is growing a gram-positive coccus. MEDICATIONS: This is day 1 of treatment with the combination of Levaquin and micafungin. PHYSICAL EXAMINATION: Vital Signs: Temperature is 99 degrees, pulse 99, respirations 18, blood pressure 160/76. General: This is an ill-appearing, middle-aged male. The patient had a tracheostomy performed. He does have a nasogastric tube in place. There is no drainage from the nose or ears. Neck: Mentioned above, the patient has a tracheostomy in place. Lungs: Clear to auscultation. Cardiovascular: Heart rate is regular. Abdomen: Soft. It was not tender. The patient's midline incision has been opened at the bottom and at this time there is only minimal serosanguineous drainage. The wound has beefy red tissue and no purulence. Neurologic: The patient is sedated. He did move his right arm by himself, but he did not move any of his extremities when I requested him. LAB AND X-RAY STUDIES: The patient's sputum is growing out Acinetobacter. The patient's abdominal wound is growing a gram-positive coccus. The CBC shows a white count of 14,840, hemoglobin 7.7, and platelet count 290,000. Blood gases show a pH of 7.49, a PO2 of 99, a pCO2 of 33. Creatinine is 1.4. GFR is greater than 60. Bilirubin is 2.48. The rest of the liver function studies were normal. Chest x-ray shows bibasilar infiltrates. Sputum grew Acinetobacter. ASSESSMENT AND PLAN: The patient has an Acinetobacter for which I plan on leaving him on Levaquin. The patient also has lower abdominal wound infection with a gram-positive coccus. I have discontinued micafungin and placed the patient on daptomycin. I have also discontinued Lipitor because it can interact with daptomycin to increase the risk of rhabdomyolysis. COMORBIDITIES: The patient is a diabetic. He has a history of drug abuse and cigarette smoking. He has a history of having a sarcoma removed. He has deep venous thrombi in his legs. cc: Nabeel Davis MD
[2018-11-22] MEDS: LEVAQUIN 750 MG/D5W 750 MG/150 ML IVPB IV SCH (14:22)
[2018-11-22] MEDS ORDERED: [UNRECOGNIZED DRUG - OTHER] IV SCH ×7 (15:00)
[2018-11-22] MEDS ORDERED: M V I IV SCH ×7 (15:00)
[2018-11-22] MEDS ORDERED: TPN ELECTROLYTES IV SCH ×7 (15:00)
[2018-11-22] MEDS ORDERED: MAGNESIUM SULFATE IV SCH ×7 (15:00)
--- NOTE | 2018-11-22 15:21 | PULMONOLOGY PROGRESS NOTE ---
DATE: 11/22/2018 SUBJECTIVE: The patient does attempt to reach out with his right hand when his voice is called. OBJECTIVE: Vital signs: Maximum temperature in the last 24 hours 100.2 degrees, BP 145/75, heart rate 95, respiratory rate 18, oxygen saturation 98%. HEENT: Pupils are equal. Oropharynx appears clear with endotracheal tube now removed. Neck: Supple with tracheostomy in good position. Chest reveals pneumonia at the right base which may be slightly worse. LABORATORY: White blood count 14.8, hemoglobin 7.7, platelet count 290,000. Chemistry: Sodium 143, potassium 4.2, chloride 107, bicarbonate 23, BUN 34, creatinine 4. IMPRESSIONS: This is a 53-year-old with: 1. Large hemispheric stroke. 2. Infarcted bowel, status post resection of a large portion of small bowel. 3. Fevers. 4. Gram-negative pneumonia. 5. Sinusitis. 6. Status post tracheostomy after failed extubation. DISCUSSION: This is a 43-year-old male as outlined above. He was placed on a spontaneous breathing trial today and rapidly fails due to tachypnea with shallow breath sounds. PLAN: 1. Continue antibiotic for pneumonia. 2. Continue daily weaning trials. 3. Abdominal wound management per Dr. Phillips. 4. Overall prognosis appears guarded to poor. Time spent in critical care management: 30+ minutes cc: Mane Roca MD [facility]
[2018-11-22] MEDS: TYLENOL PR PRN (20:28)
[2018-11-23] MEDS: MORPHINE IV PRN ×8 (01:00→22:53)
[2018-11-23] MEDS: HUMALOG SUBQ SCH ×3 (01:01→08:45)
[2018-11-23] MEDS: DIPRIVAN 1% 1,000 MG/100 ML BOTTLE IV SCH ×3 (01:23→09:58)
[2018-11-23] MEDS: DUONEB (A & A) INH SCH ×2 (02:55→07:53)
[2018-11-23 04:41] LABS: ALLEN TEST YES; BE 0.4 mmoll (-3.0-3.0); BLOOD TYPE ARTERIAL; HCO3-(ACT) 25.2 mmoll (20.0-26.0); METHB 0.2 % (0.0-1.5); O2(CT) 10.1 mL/dL (15.0-23.0); O2HB 95.6 % (95.0-99.0); PCO2(98.6) 31 mmHg (35-45); PO2(98.6) 82 mmHg (60-100); SAMPLE BLOOD; SAO2 96.4 % (95.0-100.0); SRATE 10 BPM; THB 7.4 g/dL (11.5-17.4); TVOL 650 mL; pH(98.6) 7.49 (7.35-7.45)
[2018-11-23 05:01] LABS: MODALITY VENTILATOR
[2018-11-23 06:44] LABS: HEMATOCRIT 21.1 % (42.0-52.0); HEMOGLOBIN 6.7 g/dL (14.0-18.0); MCH 29.3 PG (27-31); MCHC 31.8 g/dL (33-37); MCV 92.1 FL (81-99); MPV 12.6 FL (7.4-10.4); RBC 2.29 XMIL (4.7-6.1); RDW 15.6 % (11.5-14.5); WBC 12.46 X1000 (4.8-10.8)
[2018-11-23 07:06] LABS: ALB/GLOB RATIO 0.4; ALBUMIN 1.9 g/dL (3.5-5.0); CREATININE 1.6 mg/dL (0.7-1.2); POTASSIUM 4.2 mmol/L (3.5-5.1); TOTAL BILIRUBIN 3.15 mg/dL (0.20-1.00); TOTAL PROTEIN 6.6 g/dL (6.3-8.3)
--- NOTE | 2018-11-23 07:34 | Diag Imaging Result Doc PS360 ---
EXAM: CHEST-PORTABLE INDICATION: respiratory failure TECHNIQUE: One view COMPARISON: 11/22/2018 FINDINGS: Support tubes and lines are in stable positions. Ill-defined opacities bilaterally, most significant at the right lung base, are essentially stable. No new consolidation is identified. Cardiac silhouette is stable. IMPRESSION: Stable chest. Electronically signed by Isak Oquendo 11/23/2018 7:33 AM
[2018-11-23] MEDS: MUCOMYST 20% INH SCH (07:54)
[2018-11-23] MEDS: TYLENOL PR PRN (08:41)
[2018-11-23] MEDS: ASPIRIN NG SCH (08:45)
[2018-11-23] MEDS: PEPCID IV SCH (08:45)
[2018-11-23] MEDS: CUBICIN 500 MG in NS 100 ML IV SCH (09:07)
--- NOTE | 2018-11-23 09:36 | PROGRESS NOTE ---
DATE: 11/23/2018 SUBJECTIVE: The patient continues to have a lot of drainage from the surgical metal incision, and no other issues noted. OBJECTIVE: Vital Signs: Temperature 100.7 degrees, heart rate 104, respiratory rate 19, blood pressure 156/67, O2 saturation 98% on mechanical ventilator at FiO2 of 30%. General: This is a chronically ill-appearing, 53-year-old, male, looking older than his stated age, lying in bed in no acute distress. Neck: There is a tracheostomy tube in place, connected to ventilator. No JVD noted. No carotid bruits. No lymphadenopathy. Cardiovascular: S1, S2 heard. No murmurs, gallops, or rubs. Regular rate and rhythm. Respiratory: Coarse breath sounds still noted in both pulmonary bases, unchanged compared with previous days. The patient is not using any accessory muscles or having work of breathing. Abdomen: Soft. The patient has two ostomies in the right and left lower quadrant. Significant drainage coming out from the surgical midline incision. Some metal stitches have been removed. Extremities: No clubbing, cyanosis, or edema. Peripheral pulses present in both legs. Neurologic: The patient continues to be sedated and intubated. LABORATORY DATA: Reviewed. ASSESSMENT AND PLAN: 1. Acute hypoxemic respiratory failure secondary to right lower lobe pneumonia with right-sided pleural effusion. 2. Status post tracheostomy. 3. Pneumatosis intestinalis with peritonitis, pneumoperitoneum, and intestinal infarction. 4. 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 5. Diabetes mellitus type 2. Considering all his comorbidities, we have talked with the family yesterday about the prognosis. Actually, [facility] have talked to them, and they have decided to withdraw care of this patient. Until that happens, we will continue to monitor this patient closely. Will continue with all the medications that he is receiving right now. cc: Niranjan Lepe MD MTDD
[2018-11-23] MEDS ORDERED: ATROPINE 1 % OPHTH SOLN SL PRN (10:29)
[2018-11-23] MEDS: ATIVAN IV PRN ×5 (10:53→23:30)
--- NOTE | 2018-11-23 11:18 | PROGRESS NOTE ---
DATE: 11/23/2018 Mr. Davis has not changed clinically. He continues with left hemiplegia. I concur with plans for withdrawal of support. Nothing to add from Neurology standpoint. cc: Evaristo Keene III, MD
[2018-11-24] MEDS: MORPHINE IV PRN ×8 (01:28→23:21)
[2018-11-24] MEDS: ATIVAN IV PRN ×7 (03:31→23:22)
--- NOTE | 2018-11-24 14:08 | PROGRESS NOTE ---
DATE: 11/24/2018 SUBJECTIVE: The patient is noted to be lethargic. No other issues noted as per nursing staff overnight. OBJECTIVE: Vital Signs: Temperature 101 degrees, heart rate 107, respiratory rate 18, blood pressure 115/50, and O2 saturation 99% on tracheostomy collar. General: This is a 53-year-old chronically ill-looking, male, lying in bed in no acute distress. Cardiovascular: S1 and S2 heard. No murmurs, gallops, or rubs. Regular rate and rhythm. Respiratory: Coarse breath sounds in both pulmonary bases. Abdomen: He has a colostomy bag with surgical wound infection. Extremities: No clubbing, cyanosis, or edema. Neurological: Patient appears to be lethargic. ASSESSMENT AND PLAN: 1. Acute hypoxemic respiratory failure secondary to right lower lobe pneumonia. 2. Status post tracheostomy. 3. Peritonitis and pneumoperitoneum. 4. Right middle cerebral artery stroke. 5. Diabetes mellitus type 2. PLAN: Patient is on comfort care measures only. We will continue with lorazepam and morphine. We will continue to monitor this patient closely. cc: Niranjan Lepe MD [facility] [place] [facility]
[2018-11-24] MEDS: TYLENOL PR PRN (15:59)
[2018-11-24] MEDS: OFIRMEV 1000 MG/ISOTONIC SOLN 1,000 MG/100 ML BOTTLE IV PRN (17:48)
[2018-11-25] MEDS: MORPHINE IV PRN ×9 (01:41→17:08)
[2018-11-25] MEDS: ATIVAN IV PRN ×7 (01:41→17:09)
[2018-11-25] MEDS: OFIRMEV 1000 MG/ISOTONIC SOLN 1,000 MG/100 ML BOTTLE IV PRN (09:24)
[2018-11-25 11:06] VITALS: BP 104/52
--- NOTE | 2018-11-26 07:51 | DISCHARGE SUMMARY ---
ADMISSION DATE: 11/09/2018 DISCHARGE DATE: 11/25/2018 DISCHARGE DIAGNOSES: The patient unfortunately secondary to the following diagnoses: 1. Acute hypoxemic respiratory failure due to right lower lobe pneumonia with right-sided pleural effusion. 2. Pneumatosis intestinalis peritonitis with pneumoperitoneum and intestinal infarction and perforation, status post laparotomy and removal of majority of jejunum, ilium, and right colon. 3. Right middle cerebral artery stroke with right carotid pulse thrombosis. 4. Uncontrolled diabetes mellitus type 2. 5. Active cocaine abuse. 6. Essential hypertension. 7. Diabetic gastroparesis. CONSULTATIONS: 1. Dr. Alexis Phillips from General Surgery. 2. Dr. Mane Roca from Pulmonary. 3. Dr. Keene from Neurology. 4. Dr. Nabeel Davis from Infectious Disease. HOSPITAL COURSE: In brief, this patient came to the hospital with abdominal pain. He was extremely agitated. His UDS was positive for cocaine. It was noticed that he was not moving his left upper extremity, and we found internal carotid artery thrombus that has caused a stroke. The patient was placed on heparin drip. Unfortunately, he developed john-infarct hemorrhage. We needed to stop it. Also, around his course of hospitalization, he started developing abdominal distention. It was suspected an intestinal infarction that required laparotomy on 11/15/2018. Two colostomies were placed. Unfortunately, this patient was not doing good. He continued to require to be on ventilator. Also, a few days before he passed out, he developed a surgical wound infection, so the surgical wound needed to be opened, and a lot of purulent secretions started coming out. At that point, we have informed the family about his poor prognosis overall. Family agreed to do comfort care measures only, so he was terminally extubated. He was placed on Ativan and morphine for pain control and anxiety, and unfortunately this patient did finally pass away at 7:10 p.m. on 11/25/2018. cc: Niranjan Lepe MD
== END 2018-11-25 19:10 | disposition expired | DRG 3 ==
LOC: SUPCPDRO → ED 06:40 → 3S 18:09 → SUATTDRO 18:09 → ICU 11-10 09:14 → 3N 11-23 16:29
PROVIDERS: ATTEND Internal Medicine
PROC: GE.COLS (2018-11-15 18:20)
CPT/HCPCS: 31500; 36569; 70450; 70470; 71010; 71045; 74000; 74018; 74176; 80048; 80053; 80202; 81001; 82271; 82465; 82607; 82728; 82746; 82805; 82948; 83036; 83540; 83550; 83605; 83735; 84100; 84132; 84134; 84439; 84443; 84478; 84484; 85014; 85018; 85025; 85027; 85610; 85730; 86850; 86870; 86900; 86901; 87040; 87070; 87077; 87186; 87205; 88307; 89220; 93005; 93010; 93306; 93880; 94002; 94003; 94640; 94660; 94761; 96361; 96372; 96374; 96375; 99285; A9270; C8929; J0131; J0330; J0692; J0878; J1450; J1644; J1815; J1940; J1956; J2060; J2248; J2250; J2270; J2370; J2765; J3370; J3475; J3480; J3486; J7030; J7040; J7042; J7050; J7060; J7070; P9047; Q9957; Q9967; S0028; XXXXX